=== PATIENT | female | born 1965 | race Caucasian/White ===

== ENCOUNTER 2020-07-27 10:45 | Outpatient (REF) | payer BC, SELFPAY | END 2020-07-27 10:46 | disposition home or self-care (01) | LOC: HO.HMGCLDS 10:45 | PROVIDERS: Visit Provider Internal Medicine | DX: Z20.828 Contact with and (suspected) exposure to other viral communicable diseases (principal) | CPT/HCPCS: C9803; U0003 ==

== ENCOUNTER 2021-10-01 19:34 | Inpatient (IN) | payer BC, SELFPAY ==
[2021-10-01] VITALS (13 sets, daily range): BP systolic 91–131; BP diastolic 53–81; PULSE 75–88; RESP 14–20; TEMP 36.5; O2SAT 93–99; BMI 20.4
--- NOTE | ~2021-10-01 | MR_ITS ---
EXAMINATION: MR BRAIN WITHOUT CONTRAST CLINICAL INFORMATION: Status post tPA. Question stroke. COMPARISON: CT dated 10/01/2021. TECHNIQUE: Multiplanar, multisequence imaging of the brain was performed without contrast. Limited study with motion artifacts. FINDINGS: No diffusion abnormalities are identified to suggest an acute or subacute infarct. The ventricles are normal in size. No mass effect or midline shift is seen. No brain parenchymal signal abnormality is noted. No extra-axial fluid collections are seen. The brainstem and cerebellum are normal. The gradient refocused acquisition is normal. The craniovertebral junction, marrow signal, and midline structures are normal. The major intracranial flow voids at the level of the [place] are preserved. The dural venous sinus flow voids are maintained. The mastoid air cells and paranasal sinuses are well aerated. MR/MR head/brain wo con IMPRESSION: No acute intracranial process on this limited noncontrast study with extensive motion artifacts.
--- NOTE | ~2021-10-01 | CT_ITS ---
EXAMINATION: CTA OF THE HEAD AND NECK CLINICAL INFORMATION: Difficulty speaking with weakness. COMPARISON: Noncontrast head CT on 10/01/2021. TECHNIQUE: Test bolus sequences followed by intravenous administration 70 mL of Omnipaque 350. Helical imaging was performed in the axial plane from the mediastinum to the skull vertex. Delayed postcontrast imaging of the head was also performed. The data was processed at the geospatial information technologist's workstation for generation of MIP sequences. Three-dimensional volume rendered reformatted images were also generated at an offline 3-D workstation. Stenoses are assessed in accordance with NASCET criteria unless otherwise indicated. This CT examination was performed using dose optimization techniques as appropriate, variously including the following: *Automated exposure control *Adjustment of mA and/or kV according to patient size (this includes techniques or standardized protocols for targeted exams where dose is matched to indication/reason for exam; i.e. extremities or head) *Use of iterative reconstruction technique DLP: 1471 mGy-cm. FINDINGS: CTA neck: The imaged aortic arch and origins of the great vessels are normal. The common carotid arteries are widely patent. The carotid bifurcations are normal. There are mild atherosclerotic wall calcifications along the posterior wall the proximal left ICA. The cervical internal carotid arteries are otherwise normal in caliber. The vertebral arteries opacify normally and are of normal caliber. The soft tissues of the neck are unremarkable. Severe lower cervical spondylosis evident with subluxations and a reversal of the normal cervical lordosis. Scoliotic curvature of the cervicothoracic spine noted. Multilevel facet arthropathy evident. Moderate emphysematous changes visible in the lungs with patchy scattered branching nodular densities in a subpleural distribution which may be due to an infectious/inflammatory small airways disease process. CTA head: The intradural vertebral arteries and basilar artery are normal. The posterior cerebral arteries are widely patent. The internal carotid arteries are of normal caliber. The CHERRIE and MCA vascular complexes bilaterally are normal. The venous sinuses opacify normally. CT/CT angio head neck stroke IMPRESSION: Normal CT angiogram of the head and neck. No acute intracranial process or abnormal enhancement. Moderate cervical spondylosis. Moderate emphysematous changes in the lungs with patchy nodular and branching densities in primarily a subpleural distribution which may be be due to an underlying infectious or inflammatory process of the small airways. A follow-up CT scan of the chest is recommended for more complete evaluation. Imaging findings reported to Dr. Oliva at 8:35 PM on 10/01/2021.
--- NOTE | ~2021-10-01 | CT_ITS ---
EXAMINATION: CT HEAD WITHOUT CONTRAST CLINICAL INFORMATION: Stroke protocol. COMPARISON: None. TECHNIQUE: Contiguous axial imaging was performed from the skull base to vertex without intravenous administration of contrast. This CT examination was performed using dose optimization techniques as appropriate, variously including the following: *Automated exposure control *Adjustment of mA and/or kV according to patient size (this includes techniques or standardized protocols for targeted exams where dose is matched to indication/reason for exam; i.e. extremities or head) *Use of iterative reconstruction technique DLP: 688 mGy-cm FINDINGS: There is no evidence of acute intracranial hemorrhage or edematous territorial infarction. There is no abnormal attenuation within the brain parenchyma. Fallon-white matter differentiation is preserved. The ventricles are normal in size and configuration. No evidence for obstructive hydrocephalus. No abnormal mass effect or midline shift. No extra-axial fluid collections. No acute soft tissue or osseous abnormalities. Mucous secretions in the right sphenoidal sinus. Other paranasal sinuses are clear. The mastoids and middle ear cavities are well aerated. CT/CT head for stroke IMPRESSION: No evidence of acute intracranial hemorrhage or edematous territorial infarction. This critical result was discussed with Dr Oliva at 10/01/2021 7:59 PM and it was ascertained that the content and urgency of the report was understood at the time of direct communication.
--- NOTE | ~2021-10-01 | XR_ITS ---
EXAMINATION: XR CHEST CLINICAL INFORMATION: Slurred speech. COMPARISON: No similar priors. TECHNIQUE: AP view of the chest was obtained. FINDINGS: Normal appearance of the cardiomediastinal silhouette. Overlying EKG wires. Mild interstitial prominence with an upper lobe predominance and no focal airspace opacities, pleural effusions or pneumothorax. No acute osseous abnormalities. Residual intravenous contrast in the bilateral collecting system from intravenous injection done earlier today. XR/XR chest 1V IMPRESSION: Interstitial prominence is nonspecific. Acutely it could be associated with bronchitis or atypical infections. Chronically, this could reflect underlying emphysematous changes and interstitial lung disease. Correlate clinically and ensure follow-up to document resolution or stability.
--- NOTE | 2021-10-01 19:40 | ECG_ITS ---
Test Reason : STROKE Blood Pressure : / mmHG Vent. Rate : 079 BPM Atrial Rate : 079 BPM P-R Int : 138 ms QRS Dur : 090 ms QT Int : 402 ms P-R-T Axes : 078 090 071 degrees QTc Int : 460 ms Normal sinus rhythm Rightward axis Borderline ECG No previous ECGs available Referred By: Cass Oliva Electronically Signed By:QUINTEN BREWSTER
[2021-10-01 19:42] LABS: Glucose, Whole Blood 86 mg/dL (60-115)
--- NOTE | 2021-10-01 19:46 | ED_ITS ---
HPI - Neuro Symptoms/Deficit General Chief Complaint: Dizziness Stated Complaint: STROKE ALERT,DIZZY,WEAK,LKWT 1810,NO THINNERS Time Seen by Provider: 10/01/21 19:39 History of Present Illness HPI Narrative: Patient is 56-year-old female was at daughter's house. Patient had a sudden o nset of change in speech dizziness generalized malaise that started at approximately 18:15. Patient was noted to be normal just prior to. No coughing or congestion or upper respiratory symptoms. Patient admits to drinking alcohol from 12-3 p.m. today. Patient claims she has 3 beers. no history diabetes, hypertension, high cholesterol, smoking, mi. patient from Daughter's house. No other recreational drug use. Not on any blood thinners. Related Data Allergies Allergy/AdvReac Type Severity Reaction Status Date / Time No Known Allergies Allergy Verified 10/01/21 19:40 Review of Systems Verdana 4l Review of Systems: Verdana 4d Positive change in Verdana 4d speech positive generalized weakness Verdana 4d Yes all other systems are reviewed and are negative [facility] Past Medical History Attestation statement: The following information was validated with the patient. Social History Social History Advance Directives: No Advance Directives Information Provided: Yes Physical Exam Verdana 4l Vital Signs: Verdana 4d Verdana 4d Vital Signs: Verdana 4d Verdana 4Bd Last Vital Signs Verdana 4d Glue Spreader New 4d Glue Spreader New 4d Temp 97.7 F 10/01/21 20:03 Glue Spreader New 4d Pulse 80 10/01/21 20:37 Glue Spreader New 4d Resp 14 10/01/21 20:37 BP 111/67 10/01/21 20:37 Pulse Ox 99 10/01/21 20:37 BMI result Body Mass Index 20.4 well-appearing not acute distress Appearance: Alert. Oriented X3. No acute distress. Eyes: Pupils equal, round and reactive to light. ENT: Pharynx normal. Neck: Normal inspection. Neck supple. No lymph nodes noted. No crepitus CVS: Normal heart rate and rhythm. Pulses normal. Normal S1 and S2 Respiratory: No respiratory distress. Breath sounds normal. No Wheezing. No rales Abdomen: Soft and nontender. No rigidity. No distention. good BS x4 Skin: Skin warm and dry. Normal skin color. Normal skin turgor. Extremities: No lower extremity edema. Neurovascular intact to all extremities. No Lacerations. No Rash Neuro: Oriented X 3. No motor deficit. No sensory deficit. Moving all extermities. speech slightly slurred. MDM - Neuro Symptoms/Deficit MDM Narrative Medical decision making narrative: Patient's blood pressure is 130/70. Not on blood thinners. Had a sudden on set of symptom at approximately 06:15. Admits to drinking alcohol but muscularly during the day from 07/29 15:00. Patient claims that the dizziness and change in speech happened suddenly at 18:15. She was at the daughter's house. Other people noticed her to be normal just prior. CT scan of the head was grossly negative for any acute evidence of bleeding. Patient's EKG showed a sinus pattern heart rate was 80 [place] QRS QTC within normal limits is no acute ST segment elevation noted. Patient is fair appearing. Repeat exam showed [id number] was grossly intact. Slight changes in his speech more slow than usual. [id number] was intact rapid alternating movement grossly intact. Case discussed with Neurology. Will give patient tPA given the known specific time of onset. Normal blood pressure no contraindications. Risk and benefit of tPA discussed with patient including bleed . Patient states understanding. TPA was given. On recheck patient's symptom approximately the same. Alcohol came back at this point it was approximately 80. Patient's case discussed with the general distillery worker. Will admit for further evalua Medical Records Attestation: I reviewed the patient's medical records. Lab Data Attestation: I reviewed the patient's lab results. Result diagrams: 10/01/21 20:09 10/01/21 20:09 Labs: Lab Results 10/01/21 10/01/21 10/01/21 Range/Units 19:37 19:37 20:09 WBC 8.4 (4.8-10.8) X10*3/uL RBC 4.02 L (4.20-5.50) X10*6/uL Hgb 12.7 (12.0-16.0) g/dl Hct 37.1 (37.0-47.0) % MCV 92.3 (80.0-98.0) fL MCH 31.6 (27.0-33.0) pg MCHC 34.2 (31.0-35.0) g/dl RDW 12.4 (11.0-16.0) % Plt Count 243 (160-400) X10*3/uL MPV 8.9 L (9.4-12.3) fL Immature Gran % (Auto) 0.1 (0.0-0.4) % Neut % (Auto) 61.2 (45-73) % Lymph % (Auto) 29.8 (20-40) % [place] % (Auto) 6.6 (2-11) % Eos % (Auto) 1.8 (0-4) % Baso % (Auto) 0.5 (0-2) % Lymph # (Auto) 2.5 (1.2-4.9) X10*3/uL [place] # (Auto) 0.6 (0.1-1.2) X10*3/uL Eos # (Auto) 0.2 (0.0-0.4) X10*3/uL Baso # (Auto) 0.0 (0.0-0.2) X10*3/uL Abs Immat Gran (auto) 0.01 (0.00-0.03) X10*3/uL Absolute Neuts (auto) 5.2 (2.0-8.3) x10*3/uL Absolute Nucleated RBC 0.000 (0.0-0.012) X10*3/uL Nucleated RBC % (auto) 0.0 (0.0-0.2) /100WBC PT (9.9-13.0) SEC Whole Blood PT 12.8 (11.1-13.5) sec INR (0.9-1.1) Whole Blood INR 1.1 (0.9-1.1) APTT (24.1-38.0) SEC POC Glucose 86 (60-115) mg/dL Troponin I High Sens (<3.5-17.0) ng/L Ethyl Alcohol mg/dL COVID-19 (EFRAIN) (Negative) COVID-19 Clin Com 10/01/21 10/01/21 10/01/21 Range/Units 20:09 20:09 20:09 WBC (4.8-10.8) X10*3/uL RBC (4.20-5.50) X10*6/uL Hgb (12.0-16.0) g/dl Hct (37.0-47.0) % MCV (80.0-98.0) fL MCH (27.0-33.0) pg MCHC (31.0-35.0) g/dl RDW (11.0-16.0) % Plt Count (160-400) X10*3/uL MPV (9.4-12.3) fL Immature Gran % (Auto) (0.0-0.4) % Neut % (Auto) (45-73) % Lymph % (Auto) (20-40) % [place] % (Auto) (2-11) % Eos % (Auto) (0-4) % Baso % (Auto) (0-2) % Lymph # (Auto) (1.2-4.9) X10*3/uL [place] # (Auto) (0.1-1.2) X10*3/uL Eos # (Auto) (0.0-0.4) X10*3/uL Baso # (Auto) (0.0-0.2) X10*3/uL Abs Immat Gran (auto) (0.00-0.03) X10*3/uL Absolute Neuts (auto) (2.0-8.3) x10*3/uL Absolute Nucleated RBC (0.0-0.012) X10*3/uL Nucleated RBC % (auto) (0.0-0.2) /100WBC PT 10.9 (9.9-13.0) SEC Whole Blood PT (11.1-13.5) sec INR 1.0 (0.9-1.1) Whole Blood INR (0.9-1.1) APTT 32.2 (24.1-38.0) SEC POC Glucose (60-115) mg/dL Troponin I High Sens < 3.5 (<3.5-17.0) ng/L Ethyl Alcohol 84 mg/dL COVID-19 (EFRAIN) (Negative) COVID-19 Clin Com 10/01/21 Range/Units 20:09 WBC (4.8-10.8) X10*3/uL RBC (4.20-5.50) X10*6/uL Hgb (12.0-16.0) g/dl Hct (37.0-47.0) % MCV (80.0-98.0) fL MCH (27.0-33.0) pg MCHC (31.0-35.0) g/dl RDW (11.0-16.0) % Plt Count (160-400) X10*3/uL MPV (9.4-12.3) fL Immature Gran % (Auto) (0.0-0.4) % Neut % (Auto) (45-73) % Lymph % (Auto) (20-40) % [place] % (Auto) (2-11) % Eos % (Auto) (0-4) % Baso % (Auto) (0-2) % Lymph # (Auto) (1.2-4.9) X10*3/uL [place] # (Auto) (0.1-1.2) X10*3/uL Eos # (Auto) (0.0-0.4) X10*3/uL Baso # (Auto) (0.0-0.2) X10*3/uL Abs Immat Gran (auto) (0.00-0.03) X10*3/uL Absolute Neuts (auto) (2.0-8.3) x10*3/uL Absolute Nucleated RBC (0.0-0.012) X10*3/uL Nucleated RBC % (auto) (0.0-0.2) /100WBC PT (9.9-13.0) SEC Whole Blood PT (11.1-13.5) sec INR (0.9-1.1) Whole Blood INR (0.9-1.1) APTT (24.1-38.0) SEC POC Glucose (60-115) mg/dL Troponin I High Sens (<3.5-17.0) ng/L Ethyl Alcohol mg/dL COVID-19 (EFRAIN) Negative (Negative) COVID-19 Clin Com See Note NIH Stroke Scale Internal: Initial- Upon Arrival Level of Consciousness: Alert Level of Consciousness Questions: Answers both questions correctly Level of Consciousness Commands: Performs both tasks correctly Best Gaze: Normal Visual: No visual loss Facial Palsy: Normal Motor Arm (Right): No drift Motor Arm (Left): No drift Motor Leg (Right): No drift Motor Leg (Left): No drift Limb Ataxia: Absent Sensory: Normal Best Language: Mild to moderate aphasia Dysarthia: Mild to moderate dysarthria Extinction and Inattention: No abnormality Score: 2 Critical Care Time Critical Care Time Critical Care Time: Yes Total Critical Care Time: 40 Attestation: I have personally provided 40 minutes of critical care time exclusive of time spent on separately billable procedures. Time includes review of lab data, radiology results, discussion with consultants, and monitoring for potential decompensation. Interventions were performed as documented above Discharge Plan Discharge Clinical Impression: Alcohol intoxication, Acute CVA (cerebrovascular accident) Patient Disposition: Admitted As Inpatient
[2021-10-01 19:48] LABS: Prothrombin Time Whole Bld POC 12.8 sec (11.1-13.5); ~PT, ~INR - Anti Coag Clinic 1.1 (0.9-1.1)
[2021-10-01 20:14] LABS: MANUAL DIFF FLAG NO
[2021-10-01 20:15] LABS: Basophils Percent Auto 0.5 % (0-2); Eosinophils Absolute Auto 0.2 X10*3/uL (0.0-0.4); Eosinophils Percent Auto 1.8 % (0-4); Hematocrit 37.1 % (37.0-47.0); Hemoglobin 12.7 g/dl (12.0-16.0); Imm Gran Abs Auto 0.01 X10*3/uL (0.00-0.03); Imm Gran Pct Auto 0.1 % (0.0-0.4); Lymphocytes Absolute Auto 2.5 X10*3/uL (1.2-4.9); Lymphocytes Percent Auto 29.8 % (20-40); Mean Corpuscular HGB Conc 34.2 g/dl (31.0-35.0); Mean Corpuscular Hemoglobin 31.6 pg (27.0-33.0); Mean Corpuscular Volume 92.3 fL (80.0-98.0); Mean Platelet Volume 8.9 fL (9.4-12.3); Monocytes Absolute Auto 0.6 X10*3/uL (0.1-1.2); Monocytes Percent Auto 6.6 % (2-11); Neutrophils Absolute Auto 5.2 x10*3/uL (2.0-8.3); Neutrophils Percent Auto 61.2 % (45-73); Platelet Count 243 X10*3/uL (160-400); Red Blood Count 4.02 X10*6/uL (4.20-5.50); Red Cell Distribution Width 12.4 % (11.0-16.0); White Blood Count 8.4 X10*3/uL (4.8-10.8)
[2021-10-01 20:22] LABS: Prothrombin Time 10.9 SEC (9.9-13.0)
--- NOTE | 2021-10-01 20:23 | PC.NURSE ---
TPA dose confirmed by this RN and verfied by True RN at bedside. Pt 54 kg. Total dose 48.2 mg, bolus 4.8 mg given, remainder 43.4 mg to run over 1 hr. Vitals as charted
[2021-10-01 20:24] LABS: Partial Thromboplastin Time 32.2 SEC (24.1-38.0)
[2021-10-01 20:27] LABS: Stroke Lab Use COMPLETE
[2021-10-01 20:28] LABS: Ethanol 84 mg/dL
--- NOTE | 2021-10-01 20:30 | PC.NURSE ---
Neuro status unchanged from previous- awake and alert, clear speech, answering questions appropriately, following commands, moving all extremities. No facial droop, arm drift, or focal deficits. Pt continues to endorse severe dizziness. Denies all other complaints. TPA infusing, vitals as charted, this RN to remain at bedside for duration of infusion
[2021-10-01 20:31] LABS: COVID-19 Test Negative (Negative); IDNOW Serial# 55D5AD1C
[2021-10-01 20:35] LABS: Stroke Lab Use COMPLETE
[2021-10-01 20:36] LABS: Troponin-I High Sensitivity < 3.5 ng/L (<3.5-17.0)
--- NOTE | 2021-10-01 21:13 | PHA.MEDREC ---
Pharmacy Consult ? Medication Reconciliation Pharmacy has completed the medication reconciliation. Patient is sleeping after TPA. Medications reconciled with fill history
[2021-10-01] MEDS: 0.9 % Sodium Chloride 1,000 ML 100 ML IVCONT (21:26)
--- NOTE | 2021-10-01 21:27 | PC.NURSE ---
TPA infusion complete at this time. Vitals as charted. Neuro status unchanged. Pending admission to ICU. Pt remains attached to monitoring coordinator and pulse ox, BP to cycle Q 15 x 1 hr
--- NOTE | 2021-10-01 21:29 | P.HPCC_ITS ---
History of Present Illness Date of Service: 10/01/21 <Mariela Rosales PA-C - Last Filed: 10/02/21 00:55> Attending physician on admission: Henrry Little <Mariela Rosales PA-C - Last Filed: 10/02/21 00:55> Chief Complaint: tPA given, CVA <Mariela Rosales PA-C - Last Filed: 10/02/21 00:55> Patient is a 56-year-old female past medical history of COPD and HTN who was brought in by ambulance on a stroke alert. The pt states she was at her home today, cleaning all day with her and daughter, they were drinking alcohol, the patient claims she only had 3 beers, the confirmed this. The and the daughter states that at 6:15pm, she had a sudden change in her speech, they described it as a slowing of her speech and she became clumsy so they called 911. Forty-five mins after the last known well time, in the emergency department, a decision was made to give the patient tPA. During my exam, the patient's only complaint was that she feels like she is talking slower than normal and she felt dizzy and wanted to keep her eyes closed but when I asked her open them, she was okay. My exam revealed no deficits except pupils were sluggish, could be due to etoh. Patient denied any chest pain, shortness of breath, abdominal pain or headache. Patient stated she drank 2 beers this afternoon and did not use any street drugs today. Patient is also asking for an albuterol inhaler as she uses hers twice daily and is due. Patient's head CT and head and neck CTA were unremarkable. Patient's labs were remarkable for ethyl alcohol 84, chemistry pending. Case discussed with Dr. Little, patient will be transferred to the ICU for monitoring. <Mariela Rosales PA-C - Last Filed: 10/02/21 00:55> Review of Systems Verdana 4l Review of Systems: Yes all other systems are reviewed and Verdana 4d are negative Verdana 4Il <Mariela Rosales PA-C - Last Filed: 10/02/21 00:55> Verdana 4d Verdana 4l Neurologic: Verdana 4d Reports Abnormal speech present and Denies Sensory deficit (Neuro) Verdana 4Il <Mariela Rosales PA-C - Last Filed: 10/02/21 00:55> Verdana 4d PMFSH Social History Social History: Social History Household Members: Significant Other Household Members Other:: DAUGHTER Housing: Condominium Do you presently have visiting nurse or other home services: No Alcohol intake: current Patient Tobacco Use Status: Current everyday Tobacco user Tobacco use type: Cigarette Cigarette Packs Per Day: 1 Cigarettes Per Day: 10 Years Smoked: 40 Smoked in Last 30 Days: Yes Patient Interested in Nicotine Replacement: Yes Patient Given Instructions on How to Stop Smoking: Yes Date Education Initiated: 10/02/21 Second Hand Smoke Exposure: No Use of substances other than those prescribed or required for medical reasons: No Currently Displaying Signs/Symptoms of Drug Intoxication Withdrawal: No Any prior treatment program specific to substance use: No Have you been hit, kicked, punched, or otherwise hurt by someone within the past year? If so, by whom?: No Do you feel safe in your current relationship?: No Is there a partner from a previous relationship who is making you feel unsafe now?: No Are you made to feel afraid or neglected: No Advance Directives: No Advance Directives Information Provided: Yes Do you have thoughts of harming others: None Recently lost weight without trying: No Nutrition Risks: No Nutritional Risk Patient : No : No Poor oral hygiene: No <Mariela Rosales PA-C - Last Filed: 10/02/21 00:55> Meds Allergies/Adverse reactions: Allergies Allergy/AdvReac Type Severity Reaction Status Date / Time No Known Allergies Allergy Verified 10/01/21 21:07 <Mariela Rosales PA-C - Last Filed: 10/02/21 00:55> Active Medications: Current Medications Sodium Chloride (Ns) 1,000 mls @ 100 mls/hr IVCONT .Q10H FREDA Last Admin: 10/01/21 21:26 Dose: 100 mls/hr Documented by: Pharmacy Consult (Consult Rx Perform Med Rec) 1 each MISCELLANE ONCE PRN PRN Reason: Consult order <KARAN Leroy Last Filed: 10/02/21 00:55> Home medications: Home Medications Medication Instructions Recorded Confirmed Last Taken Type budesonide-formot 2 puff 10/01/21 10/01/21 Unknown History burt HFA 160 INHALATION BID mcg-4.5 mcg/actuation aerosol inhaler (Symbicort) citalopram 40 mg 1 tab PO DAILY 10/01/21 10/01/21 Unknown History tablet losartan 50 mg 2 tab PO DAILY 10/01/21 10/01/21 Unknown History tablet tiotropium 1 cap INHALATION 10/01/21 10/01/21 Unknown History bromide 18 mcg DAILY capsule with inhalation device (Spiriva with HandiHaler) <Mariela Rosales PA-C - Last Filed: 10/02/21 00:55> Physical Exam Verdana 4l Vital Signs: Verdana 4d Verdana 4d Vital Signs: Verdana 4d Verdana 4Bd Last Vital Signs Verdana 4d Replanting Machine Crew New 4d Replanting Machine Crew New 4d Temp 97.7 F 10/01/21 20:03 Replanting Machine Crew New 4d Pulse 81 10/01/21 21:27 Replanting Machine Crew New 4d Resp 15 10/01/21 21:27 BP 102/64 10/01/21 21:27 Pulse Ox 94 10/01/21 21:27 BMI result Body Mass Index 20.4 <Mariela Rosales PA-C - Last Filed: 10/02/21 00:55> Const: General: cooperative, healthy appearing, comfortable, no acute distress, alert, awake and Physically active <Mariela Rosales PA-C - Last Filed: 10/02/21 00:55> Nutritional Appearance: average body habitus <Mariela Rosales PA-C - Last Filed: 10/02/21 00:55> Orientation/consciousness: patient oriented x3 <KARAN Leroy Last Filed: 10/02/21 00:55> HENMT: Head: Yes normal to inspection, Yes No palpable skull fracture present, Yes normocephalic and Yes atraumatic <Mariela Rosales PA-C - Last Filed: 10/02/21 00:55> General nose exam: Normal external nose present <KARAN Leroy Last Filed: 10/02/21 00:55> Face and sinus: Yes normal facial exam and Yes face symmetric <Mariela Rosales PA-C - Last Filed: 10/02/21 00:55> Mouth: Normal oral and palatal mucosa present <Mariela Rosales PA-C - Last Filed: 10/02/21 00:55> Eyes: General: appearance normal, both eyes and all related structures <Mariela Rosales PA-C - Last Filed: 10/02/21 00:55> Pupils: Dilated pupils (sluggish) bilaterally <Mariela Rosales PA-C - Last Filed: 10/02/21 00:55> EOM: EOMs intact bilaterally <Mariela Rosales PA-C - Last Filed: 10/02/21 00:55> Neck: Neck: Yes normal visual inspection, Yes full ROM, Yes trachea midline and Yes supple <Mariela Rosales PA-C - Last Filed: 10/02/21 00:55> Resp: Effort & Inspection: normal respiratory effort <Mariela Rosales PA-C - Last Filed: 10/02/21 00:55> Auscultation: wheezes and diminished lung sounds diffuse <Mariela Rosales PA-C - Last Filed: 10/02/21 00:55> Cardio: Rate: regular rate <Mariela Rosales PA-C - Last Filed: 10/02/21 00:55> Rhythm: regular rhythm <Mariela Rosales PA-C - Last Filed: 10/02/21 00:55> Heart sounds: normal S1 and S2 <Mariela Rosales PA-C - Last Filed: 10/02/21 00:55> GI: Inspection: Yes normal to inspection <Mariela Rosales PA-C - Last Filed: 10/02/21 00:55> Palpation (GI): Soft to palpation and nontender <Mariela Rosales PA-C - Last Filed: 10/02/21 00:55> Neuro: General: patient oriented x3 and Unable to assess gait <Mariela Rosales PA-C - Last Filed: 10/02/21 00:55> Cranial nerves: Yes CN's II-XII intact bilaterally <Mariela Rosales PA-C - Last Filed: 10/02/21 00:55> Cognition (Neuro): normal cognition <Mariela Rosales PA-C - Last Filed: 10/02/21 00:55> Speech: Abnormal speech present slurred (/slowed) <Mariela Rosales PA-C - Last Filed: 10/02/21 00:55> Gait exam (Neuro): Unable to assess gait <Mariela Rosales PA-C - Last Filed: 10/02/21 00:55> Motor exam (neuro): 5/5 motor strength present throughout and Pronator motor function not present <Mariela Rosales PA-C - Last Filed: 10/02/21 00:55> Sensory Exam: No Sensory deficit (Neuro) <Mariela Rosales PA-C - Last Fi led: 10/02/21 00:55> Pupils: Sluggish: bilateral <Mariela Rosales PA-C - Last Filed: 10/02/21 00:55> Extrem: General: Yes normal to inspection, Yes full ROM and Yes no pedal edema <Mariela Rosales PA-C - Last Filed: 10/02/21 00:55> Results Labs CBC and Chem 7: : 10/02/21 05:24 10/02/21 05:24 <Mariela Rosales PA-C - Last Filed: 10/02/21 00:55> Labs: Laboratory Results - last 24 hr 10/01/21 10/01/21 10/01/21 19:37 19:37 20:09 MCV 92.3 MCH 31.6 MCHC 34.2 RDW 12.4 Plt Count 243 MPV 8.9 L Immature Gran % (Auto) 0.1 Neut % (Auto) 61.2 Lymph % (Auto) 29.8 [place] % (Auto) 6.6 Eos % (Auto) 1.8 Baso % (Auto) 0.5 Lymph # (Auto) 2.5 [place] # (Auto) 0.6 Eos # (Auto) 0.2 Baso # (Auto) 0.0 Abs Immat Gran (auto) 0.01 Absolute Neuts (auto) 5.2 Absolute Nucleated RBC 0.000 Nucleated RBC % (auto) 0.0 PT Whole Blood PT 12.8 INR Whole Blood INR 1.1 APTT POC Glucose 86 Ethyl Alcohol COVID-19 (EFRAIN) COVID-19 Clin Com 10/01/21 10/01/21 10/01/21 20:09 20:09 20:09 MCV MCH MCHC RDW Plt Count MPV Immature Gran % (Auto) Neut % (Auto) Lymph % (Auto) [place] % (Auto) Eos % (Auto) Baso % (Auto) Lymph # (Auto) [place] # (Auto) Eos # (Auto) Baso # (Auto) Abs Immat Gran (auto) Absolute Neuts (auto) Absolute Nucleated RBC Nucleated RBC % (auto) PT 10.9 Whole Blood PT INR 1.0 Whole Blood INR APTT 32.2 POC Glucose Ethyl Alcohol 84 COVID-19 (EFRAIN) Negative COVID-19 Clin Com See Note <Mariela Rosales PA-C - Last Filed: 10/02/21 00:55> Imaging Radiologist's Impressions: Impressions Head CT 10/01/21 19:44 IMPRESSION: No evidence of acute intracranial hemorrhage or edematous territorial infarction. This critical result was discussed with Dr Oliva at 10/01/2021 7:59 PM and it was ascertained that the content and urgency of the report was understood at the time of direct communication. Head/Neck CTA 10/01/21 19:54 IMPRESSION: Normal CT angiogram of the head and neck. No acute intracranial process or abnormal enhancement. Moderate cervical spondylosis. Moderate emphysematous changes in the lungs with patchy nodular and branching densities in primarily a subpleural distribution which may be be due to an underlying infectious or inflammatory process of the small airways. A follow-up CT scan of the chest is recommended for more complete evaluation. Imaging findings reported to Dr. Oliva at 8:35 PM on 10/01/2021. Chest X-Ray 10/01/21 20:48 IMPRESSION: Interstitial prominence is nonspecific. Acutely it could be associated with bronchitis or atypical infections. Chronically, this could reflect underlying emphysematous changes and interstitial lung disease. Correlate clinically and ensure follow-up to document resolution or stability. <KARAN Leroy Last Filed: 10/02/21 00:55> Assessment and Plan (1) Alcohol intoxication: Status: Acute <Mariela Rosales PA-C - Last Filed: 10/02/21 00:55> (2) Acute CVA (cerebrovascular accident): Status: Acute <Mariela Rosales PA-C - Last Filed: 10/02/21 00:55> (3) COPD (chronic obstructive pulmonary disease): Status: Acute <Mariela Rosales PA-C - Last Filed: 10/02/21 00:55> (4) HTN (hypertension): Status: Acute <Mariela Rosales PA-C - Last Filed: 10/02/21 00:55> Plan patient will be brought to the ICU for monitoring s/p tPA; echo and MRI both ordered for tomorrow. Neuro consult appreciated. <Mariela Rosales PA-C - Last Filed: 10/02/21 00:55> Critical Care Time Critical Care Time (minutes): 60 <KARAN Leroy Last Filed: 10/02/21 00:55>
[2021-10-01 22:05] LABS: Alanine Aminotransferase 11 U/L (0-31); Albumin Level 3.8 g/dL (3.5-5.0); Alkaline Phosphatase 83 U/L (39-117); Anion Gap 14 (12-20); Aspartate Amino Transferase 16 U/L (5-31); Bilirubin Direct < 0.2 mg/dL (0.0-0.5); Bilirubin Total 0.3 mg/dL (0.0-1.0); Blood Urea Nitrogen 15 mg/dL (9-16); Calcium 8.4 mg/dL (8.4-10.2); Carbon Dioxide 26 mmol/L (22-29); Chloride 103 mmol/L (96-108); Cholesterol 179 mg/dL; Creatinine Clr Calc Pharmacy 73.6; Estimated Glomerular Filt Rate > 60; Glucose Random 110 mg/dL (60-115); HDL Cholesterol 79 mg/dL; LDL Cholesterol Calculated 65 mg/dl; Sodium 139 mmol/L (135-145); Total Protein 6.3 g/dL (6.5-8.0); Triglycerides 179 mg/dL
[2021-10-01] MEDS: Albuterol Sulfate 90 MCG 8 GM INHALER 2 PUFF INHALE (23:46)
--- NOTE | 2021-10-01 23:46 | PC.NURSE ---
Report called to [facility]. Pt transferred in stable condition w/ all belongings, attached to portable monitor, vitals as charted. Neuro status unchanged from previous
[2021-10-02] VITALS (18 sets, daily range): BP systolic 96–170; BP diastolic 59–93; PULSE 60–78; RESP 12–18; TEMP 36.6–37.3; O2SAT 12–98; BMI 20.4
[2021-10-02] MEDS: 0.9 % Sodium Chloride 1,000 ML 100 ML IVCONT ×2 (00:36→12:52)
[2021-10-02] MEDS: 0.9 % Sodium Chloride 1,000 ML 999 ML IV (00:37)
--- NOTE | 2021-10-02 05:50 | PC.NURSE ---
Pt to ICU at 2345 in no acute distress, alert and oriented X3. Only complaint was slight dizziness, which she stated was getting better and slight slurred speech but was able to understand her. She was also very weak and as she described it as foggy. She just wanted to sleep. Pupils equal and reactive to light. Moving all extremites equally. Pt denies headache. Slept off and on in naps. No bleeding complications S/P thrombolytic. BP soft on arrival to ICU. SBP low 100's and she received 1 liter of NS over 1 hout. NS infusing at 100 ml/hr. Used bedpan to void without difficulty. Swallow eval done and pt passed. Taking ice chips and sips of water PO.
[2021-10-02 05:55] LABS: MANUAL DIFF FLAG NO
[2021-10-02 06:10] LABS: Basophils Percent Auto 0.4 % (0-2); Eosinophils Absolute Auto 0.1 X10*3/uL (0.0-0.4); Eosinophils Percent Auto 1.3 % (0-4); Hematocrit 36.4 % (37.0-47.0); Hemoglobin 12.2 g/dl (12.0-16.0); Imm Gran Abs Auto 0.03 X10*3/uL (0.00-0.03); Imm Gran Pct Auto 0.4 % (0.0-0.4); Lymphocytes Absolute Auto 1.9 X10*3/uL (1.2-4.9); Mean Corpuscular HGB Conc 33.5 g/dl (31.0-35.0); Mean Corpuscular Hemoglobin 31.4 pg (27.0-33.0); Mean Corpuscular Volume 93.8 fL (80.0-98.0); Mean Platelet Volume 9.3 fL (9.4-12.3); Monocytes Absolute Auto 0.6 X10*3/uL (0.1-1.2); Monocytes Percent Auto 8.6 % (2-11); Neutrophils Absolute Auto 4.2 x10*3/uL (2.0-8.3); Neutrophils Percent Auto 61.3 % (45-73); Platelet Count 230 X10*3/uL (160-400); Red Blood Count 3.88 X10*6/uL (4.20-5.50); Red Cell Distribution Width 12.7 % (11.0-16.0); White Blood Count 6.8 X10*3/uL (4.8-10.8)
[2021-10-02 06:29] LABS: Anion Gap 12 (12-20); Blood Urea Nitrogen 12 mg/dL (9-16); Calcium 8.1 mg/dL (8.4-10.2); Carbon Dioxide 22 mmol/L (22-29); Chloride 110 mmol/L (96-108); Creatinine Clr Calc Pharmacy 79.1; Estimated Glomerular Filt Rate > 60; Glucose Random 85 mg/dL (60-115); Magnesium 2.3 mg/dL (1.6-2.6); Phosphorus 4.2 mg/dL (2.7-4.5); Potassium 4.4 mmol/L (3.3-5.1); Sodium 140 mmol/L (135-145)
[2021-10-02] MEDS: Albuterol Sulfate 90 MCG 8 GM INHALER 2 PUFF INHALE ×2 (08:36→19:37)
[2021-10-02 08:55] LABS: Amphetamine Screen Urine Not Detected (Not Detect); Barbiturates, Urine Not Detected (Not Detect); Benzodiazepines Screen Urine Not Detected (Not Detect); Cannabinoid Screen Urine POSITIVE (Not Detect); Cocaine Screen Urine Not Detected (Not Detect); Fentanyl, urine Not Detected (Not Detect); Opiate Screen Urine Not Detected (Not Detect); Phencyclidine Screen Urine Not Detected (Not Detect)
--- NOTE | 2021-10-02 10:23 | P.PNCC_ITS ---
Subjective Subjective Date of Service: 10/02/21 Interval History: Fifty-five 56-year-old female hypertensive ongoing smoker with history of COPD presents with sudden onset of dysarthria over which she had no control but simultaneously had severe vertiginous dizziness had to close her eye Rachna overcome some of the brunt of that feeling with associated nausea in over the hours since the tPA was given she had gradual resolution of the symptoms now feels that she is pretty much restored to normal Initial CT scan was negative She did present with a modest alcohol level of 84 mg % following a couple of beers that she drank which is not out of the ordinary Bedside echo shows globally normal anatomy with normal systolic wall motion and no wall motion abnormality segmentally, no primary valve or pericardial disease I did see a trickle of flow at the fossa ovalis implying that there may be some patency to the foramen and therefore I would recommend a complete echocardiogram with bubble study and in a because that could be a source of paradoxical emboli to the left side of the circulation MRI is pending this afternoon Critical Care Time (minutes): 45 Physical Exam Verdana 4l Vital Signs: Verdana 4d Verdana 4d Vital Signs: Verdana 4d Verdana 4Bd Last Vital Signs Verdana 4d Staff Nurse Midwife New 4d Staff Nurse Midwife New 4d Temp 97.9 F 10/02/21 06:00 Staff Nurse Midwife New 4d Pulse 61 10/02/21 10:00 Staff Nurse Midwife New 4d Resp 12 10/02/21 10:00 BP 144/88 H 10/02/21 10:00 Pulse Ox 98 10/02/21 10:00 BMI result Body Mass Index 20.4 Awake alert and neurologically intact and nonfocal Diminished bilateral breath sounds but no event tissue sounds No neck vein distension and good bilateral carotid upstrokes and normal LV and RV function by bedside echo Objective Data Labs CBC & Chem 7: 10/02/21 05:24 10/02/21 05:24 Labs: Laboratory Results - last 24 hr 10/01/21 10/01/21 10/01/21 19:37 19:37 20:09 WBC 8.4 RBC 4.02 L Hgb 12.7 Hct 37.1 MCV 92.3 MCH 31.6 MCHC 34.2 RDW 12.4 Plt Count 243 MPV 8.9 L Immature Gran % (Auto) 0.1 Neut % (Auto) 61.2 Lymph % (Auto) 29.8 Mcculloch % (Auto) 6.6 Eos % (Auto) 1.8 Baso % (Auto) 0.5 Lymph # (Auto) 2.5 Mcculloch # (Auto) 0.6 Eos # (Auto) 0.2 Baso # (Auto) 0.0 Abs Immat Gran (auto) 0.01 Absolute Neuts (auto) 5.2 Absolute Nucleated RBC 0.000 Nucleated RBC % (auto) 0.0 PT Whole Blood PT 12.8 INR Whole Blood INR 1.1 APTT Sodium Potassium Chloride Carbon Dioxide Anion Gap BUN Creatinine Estim Creat Clear Calc Estimated GFR POC Glucose 86 Random Glucose Calcium Phosphorus Magnesium Total Bilirubin Direct Bilirubin AST ALT Alkaline Phosphatase Total Creatine Kinase Troponin I High Sens Total Protein Albumin Triglycerides Cholesterol LDL Cholesterol, Calc HDL Cholesterol Urine Opiates Screen Urine Fentanyl Screen Ur Barbiturates Screen Ur Phencyclidine Scrn Ur Amphetamines Screen U Benzodiazepines Scrn Urine Cocaine Screen U Marijuana (THC) Screen Ethyl Alcohol COVID-19 (EFRAIN) COVID-Rubysophic 10/01/21 10/01/21 10/01/21 20:09 20:09 20:09 WBC RBC Hgb Hct MCV MCH MCHC RDW Plt Count MPV Immature Gran % (Auto) Neut % (Auto) Lymph % (Auto) Mcculloch % (Auto) Eos % (Auto) Baso % (Auto) Lymph # (Auto) Mcculloch # (Auto) Eos # (Auto) Baso # (Auto) Abs Immat Gran (auto) Absolute Neuts (auto) Absolute Nucleated RBC Nucleated RBC % (auto) PT 10.9 Whole Blood PT INR 1.0 Whole Blood INR APTT 32.2 Sodium Potassium Chloride Carbon Dioxide Anion Gap BUN Creatinine Estim Creat Clear Calc Estimated GFR POC Glucose Random Glucose Calcium Phosphorus Magnesium Total Bilirubin Direct Bilirubin AST ALT Alkaline Phosphatase Total Creatine Kinase Troponin I High Sens < 3.5 Total Protein Albumin Triglycerides Cholesterol LDL Cholesterol, Calc HDL Cholesterol Urine Opiates Screen Urine Fentanyl Screen Ur Barbiturates Screen Ur Phencyclidine Scrn Ur Amphetamines Screen U Benzodiazepines Scrn Urine Cocaine Screen U Marijuana (THC) Screen Ethyl Alcohol 84 COVID-19 (EFRAIN) COVID-Rubysophic 10/01/21 10/01/21 10/02/21 20:09 21:18 05:24 WBC 6.8 RBC 3.88 L Hgb 12.2 Hct 36.4 L MCV 93.8 MCH 31.4 MCHC 33.5 RDW 12.7 Plt Count 230 MPV 9.3 L Immature Gran % (Auto) 0.4 Neut % (Auto) 61.3 Lymph % (Auto) 28.0 Mcculloch % (Auto) 8.6 Eos % (Auto) 1.3 Baso % (Auto) 0.4 Lymph # (Auto) 1.9 Mcculloch # (Auto) 0.6 Eos # (Auto) 0.1 Baso # (Auto) 0.0 Abs Immat Gran (auto) 0.03 Absolute Neuts (auto) 4.2 Absolute Nucleated RBC 0.000 Nucleated RBC % (auto) 0.0 PT Whole Blood PT INR Whole Blood INR APTT Sodium 139 Potassium 4.0 Chloride 103 Carbon Dioxide 26 Anion Gap 14 BUN 15 Creatinine 0.71 Estim Creat Clear Calc 73.6 Estimated GFR > 60 POC Glucose Random Glucose 110 Calcium 8.4 Phosphorus Magnesium Total Bilirubin 0.3 Direct Bilirubin < 0.2 AST 16 ALT 11 Alkaline Phosphatase 83 Total Creatine Kinase 143 H Troponin I High Sens Total Protein 6.3 L Albumin 3.8 Triglycerides 179 Cholesterol 179 LDL Cholesterol, Calc 65 HDL Cholesterol 79 Urine Opiates Screen Urine Fentanyl Screen Ur Barbiturates Screen Ur Phencyclidine Scrn Ur Amphetamines Screen U Benzodiazepines Scrn Urine Cocaine Screen U Marijuana (THC) Screen Ethyl Alcohol COVID-19 (EFRAIN) Negative COVID-19 Clin Com See Note 10/02/21 10/02/21 05:24 08:31 WBC RBC Hgb Hct MCV MCH MCHC RDW Plt Count MPV Immature Gran % (Auto) Neut % (Auto) Lymph % (Auto) Mcculloch % (Auto) Eos % (Auto) Baso % (Auto) Lymph # (Auto) Mcculloch # (Auto) Eos # (Auto) Baso # (Auto) Abs Immat Gran (auto) Absolute Neuts (auto) Absolute Nucleated RBC Nucleated RBC % (auto) PT Whole Blood PT INR Whole Blood INR APTT Sodium 140 Potassium 4.4 Chloride 110 H Carbon Dioxide 22 Anion Gap 12 BUN 12 Creatinine 0.66 Estim Creat Clear Calc 79.1 Estimated GFR > 60 POC Glucose Random Glucose 85 Calcium 8.1 L Phosphorus 4.2 Magnesium 2.3 Total Bilirubin Direct Bilirubin AST ALT Alkaline Phosphatase Total Creatine Kinase Troponin I High Sens Total Protein Albumin Triglycerides Cholesterol LDL Cholesterol, Calc HDL Cholesterol Urine Opiates Screen Not Detected Urine Fentanyl Screen Not Detected Ur Barbiturates Screen Not Detected Ur Phencyclidine Scrn Not Detected Ur Amphetamines Screen Not Detected U Benzodiazepines Scrn Not Detected Urine Cocaine Screen Not Detected U Marijuana (THC) Screen POSITIVE H Ethyl Alcohol COVID-19 (EFRAIN) COVID-19 Clin Com Progress Note: A&P Assessment and plan (1) HTN (hypertension): Status: Acute (2) COPD (chronic obstructive pulmonary disease): Status: Acute (3) Alcohol intoxication: Status: Acute (4) Acute CVA (cerebrovascular accident): Status: Acute Plan So at this point we await MRI but the clinical symptoms imply posterior circulation or vertebrobasilar system involvement it might also be flores to do both MRI and MRA with with gadolinium to further delineate this issue The only potential cardiovascular source is is this question of a patent foramen ovale and a full echo with bubble study should be done to rule that out Quality Stroke Does the patient have a stroke diagnosis?: Yes Reason for No Anti-thrombotic by Day Two: N/A - Med Ordered VTE Prior VTE?: No VTE Risk Level:: Medical - low VTE Device Contraindication: N/A - Device Ordered VTE Drug Contraindication: Treatment Not Indicated
--- NOTE | 2021-10-02 11:00 | MHC.STROKE ---
EMS PRE-NOTIFICATION STROKE ALERT CALLED IN 10/01/[address] AT 1926[address]EN BY DR HEWITT, ONSET OF SLURRED SPEECH (DYSARTHRIA/APHASIA) AT 1815, NIHSS UPON ARRIVAL = 2, STROKE PROTOCOL ACTIVATED, DIRECT TO CT ON EMS STRETCHER, NO BLEED, FOLLOWED BY CTA H/N, NO LVO. DR SCHOFIELD NOTIFIED, TPA (ALTEPLASE) BOLUS GIVEN AT 2021 FOLLOWED BY 1 HOUR INFUSION, TOTAL DOSE 48MG. [id number] = 48 MINUTES. OVER THE DTN 30 AND 45 MINUTE WINDOW DUE TO CARE TEAM DETERMINING ELIGIBILITY, LOW NIHSS, ETOH USE. STROKE RISK FACTORS INCLUDE HTN, HLD, SMOKING, ?OR, COPD. MARJUANA/ETOH USE. SHE PASSED NURSING SWALLOW PRIOR TO ANY PO. TRANSFERRED TO ICU. STROKE EDUCATION INITIATED, MRI PENDING, ECHO ORDERED, OT ORDERED, CONSIDER PT EVAL. LIPID PANEL DONE LDL 65. HDL 79. ALL STROKE MEASURES MET. IVF GIVEN DURING THE NIGHT FOR A DROP IN SYS BP. I WILL CONTINUE TO FOLLOW. CONSIDER CARE TEAM CONSULT FOR ETOH.
[2021-10-02] MEDS: LORazepam 2 MG/ML VIAL 1 MG IVPUSH (11:28)
--- NOTE | 2021-10-02 11:43 | P.EN_ITS ---
Event Note Date of Service: 10/02/21 Event Note: patient downgraded from ICU to IMC this morning. briefly 56-year-old female with past medical history of COPD, hypertension history of tobacco use around half pack per day, came to [facility] due to speech impairment, as per patient she fell she has marbles in her mouth words were not coming out she felt dizzy weak, she denies any shortness of breath chest pain no nausea no vomiting or headache, in the emergency room CTA head and neck was unremarkable her alcohol level was 84 patient received tPA and admitted to ICU this morning patient feels tired concerned about her daughter home she takes care of was 25 years old and handicap she is requesting for other nicotine patch, according to her she drinks 2-3 beers almost every night she denies any withdrawal symptoms prior history of delirium tremens or seizures examination awake alert neuro examination nonfocal lungs clear to auscultation heart regular extremities no edema assessment and plan dysarthria status post tPA, follow MRI echocardiogram with bubble study due to concern for PFO on limited echo, PT OT eval follow lipid profile, case discussed with Dr. Patino he will inform about further recommendations after reviewing MRI tobacco use disorder will place a nicotine patch history of alcohol dependence no evidence of alcohol withdrawal will place on CIWA protocol
--- NOTE | 2021-10-02 11:49 | P.CNNE_ITS ---
History of Present Illness Data of Consult Service Date: 10/02/21 Primary Care Provider: Unknown Physician HPI Reason for consult: Stroke 56 years old woman who was in usual state of health yesterday when suddenly her speech pattern changed. She said that she could say everything but it was like there were marbles and her mouth. She also felt generally weak and unsteady but not confused. There was no headache or pain or double vision. There was no focal weakness. She came to emergency room and clinically speaking she was diagnosed with acute ischemic infarct in posterior circulation and was treated with intravenous tPA. Now she was feeling much better and speech pattern has improved. There was no new symptom. Review of Systems Verdana 4l Review of Systems: Verdana 4d No recent symptoms are cold Verdana 4d or flu-like illness Verdana 4d [facility] Social History Social History Household Members: Significant Other Household Members Other:: DAUGHTER Housing: Condominium Do you presently have visiting nurse or other home services: No Alcohol intake: current Patient Tobacco Use Status: Current everyday Tobacco user Tobacco use type: Cigarette Cigarette Packs Per Day: 1 Cigarettes Per Day: 10 Years Smoked: 40 Smoked in Last 30 Days: Yes Patient Interested in Nicotine Replacement: Yes Patient Given Instructions on How to Stop Smoking: Yes Date Education Initiated: 10/02/21 Second Hand Smoke Exposure: No Use of substances other than those prescribed or required for medical reasons: No Currently Displaying Signs/Symptoms of Drug Intoxication Withdrawal: No Any prior treatment program specific to substance use: No Have you been hit, kicked, punched, or otherwise hurt by someone within the past year? If so, by whom?: No Do you feel safe in your current relationship?: No Is there a partner from a previous relationship who is making you feel unsafe now?: No Are you made to feel afraid or neglected: No Advance Directives: No Advance Directives Information Provided: Yes Do you have thoughts of harming others: None Recently lost weight without trying: No Nutrition Risks: No Nutritional Risk Patient : No : No Poor oral hygiene: No Meds Allergies Allergy/AdvReac Type Severity Reaction Status Date / Time No Known Allergies Allergy Verified 10/01/21 21:07 Active Medications: Current Medications Albuterol Sulfate (Albuterol Sulfate 90 Mcg 8 Gm Inhaler) 2 puff INHALE RBID [facility] Last Admin: 10/02/21 08:36 Dose: 2 puff Documented by: Sodium Chloride (Ns) 1,000 mls @ 100 mls/hr IVCONT .Q10H [facility] Last Infusion: 10/02/21 11:00 Dose: 0 mls/hr Documented by: Nicotine (Nicotine 14 Mg Patch.Td24) 14 mg TRANSDERMA DAILY [facility] Pharmacy Consult (Consult Rx Perform Med Rec) 1 each MISCELLANE ONCE PRN PRN Reason: Consult order Home Medications Medication Instructions Recorded Confirmed Last Taken Type budesonide-formot 2 puff 10/01/21 10/01/21 Unknown History burt HFA 160 INHALATION BID mcg-4.5 mcg/actuation aerosol inhaler (Symbicort) citalopram 40 mg 1 tab PO DAILY 10/01/21 10/01/21 Unknown History tablet losartan 50 mg 2 tab PO DAILY 10/01/21 10/01/21 Unknown History tablet tiotropium 1 cap INHALATION 10/01/21 10/01/21 Unknown History bromide 18 mcg DAILY capsule with inhalation device (Spiriva with HandiHaler) Physical Exam Verdana 4l Vital Signs: Verdana 4d Verdana 4d Vital Signs: Verdana 4d Verdana 4Bd Last Vital Signs Verdana 4d Print Line Tailer New 4d Print Line Tailer New 4d Temp 97.9 F 10/02/21 06:00 Print Line Tailer New 4d Pulse 61 10/02/21 10:00 Print Line Tailer New 4d Resp 12 10/02/21 10:00 BP 144/88 H 10/02/21 10:00 Pulse Ox 98 10/02/21 10:00 BMI result Body Mass Index 20.4 Neuro: Other: She was alert and awake with normal spontaneity of speech fluency comprehension and anxious affect. Pupils were 4-5 mm round reactive to light. Extraocular muscles were intact. Visual hodgson are full to confrontation. Face was symmetrical. Tongue was midline. There was no pronator drift. There was no visual extinction. There was no focal weakness. Plantars were flexors. Speech was normal. Results Labs CBC & Chem 7: 10/02/21 05:24 10/02/21 05:24 Labs: Short CBC 10/01/21 10/02/21 Range/Units 20:09 05:24 WBC 8.4 6.8 (4.8-10.8) X10*3/uL Hgb 12.7 12.2 (12.0-16.0) g/dl Hct 37.1 36.4 L (37.0-47.0) % Plt Count 243 230 (160-400) X10*3/uL BMP 10/01/21 10/02/21 21:18 05:24 Sodium 139 140 Potassium 4.0 4.4 Chloride 103 110 H Carbon Dioxide 26 22 BUN 15 12 Creatinine 0.71 0.66 Calcium 8.4 8.1 L Cardiac Enzymes 10/01/21 Range/Units 21:18 Total Creatine Kinase 143 H (26-140) U/L Liver Function 10/01/21 Range/Units 21:18 Total Bilirubin 0.3 (0.0-1.0) mg/dL Direct Bilirubin < 0.2 (0.0-0.5) mg/dL AST 16 (5-31) U/L ALT 11 (0-31) U/L Alkaline Phosphatase 83 (39-117) U/L Albumin 3.8 (3.5-5.0) g/dL Her head CT did not reveal any acute abnormality. Mild biparietal atrophy was noted. CTA of brain and neck did not reveal any vascular stenosis. Chest imaging revealed some patchy lesion suggestive of maybe an inflammatory process. Assessment and Plan (1) Dysarthria: Status: Acute 56 years old woman who reported sudden onset of dysarthria and generalized weakness. With the suspicion of acute ischemic infarct she was treated with intravenous tPA. Her speech now was normal. Her laboratories also revealed positive testing for alcohol and marijuana. Her clinical features may or may not have been from stroke. An MRI of brain is usually helpful to figure this out. Without MRI of brain, it would be difficult to rule out possibility of stroke causing her symptoms. At the same time alcohol and drugs can also cause these symptoms but in that case patient usually is confused. She was not noted to be confused and reported that she remembered everything, which suggested stroke is more likely possibility. In any case, she can come out of ICU at this point if a bed is needed. She should be advised to stop using drug abuse, she be treated with anti-platelet agent after 24 hours of tPA. I recommend maybe a day more of observation before making decision for discharge. Procedures Date of Service Date of Service: 10/02/21
[2021-10-02] MEDS: Midazolam HCl/PF 2 MG/2 ML VIAL 3 MG IVPUSH (12:30)
--- NOTE | 2021-10-02 13:00 | PC.NURSE ---
Pt brought to MRI, too anxious with first attempt, 1mg IV ativan given with positive effect for only 15 min, pt did not tolerate scan had to retry. MD stated to give 3mg IV versed, given at 1230 with positive therapeutic effect, pt resting comfortably RR 18 AK 64bpm.
[2021-10-02] MEDS: Nicotine 14 MG PATCH.TD24 TRANSDERMA (14:48)
--- NOTE | 2021-10-02 20:03 | PC.NURSE ---
Patient assessed. Neuro's intact, A&O x4. Pt wondering about having PO fluids. Pt passed bedside swallow eval. All scans negative. Dr. Wilkinson called and given update of the above information. okay with pt having fluids and jello overnight. Pt neuro evals Q1H, per Dr. Wilkinson okay to change neuro eval to Q4H.
[2021-10-03] VITALS: BP 165/71; PULSE 74; RESP 20; TEMP 37.2; O2SAT 91
[2021-10-03 04:00] VITALS: BP 163/94; PULSE 74; RESP 20; TEMP 37.2; O2SAT 93
[2021-10-03 07:30] LABS: MANUAL DIFF FLAG NO
[2021-10-03 07:32] LABS: Basophils Percent Auto 0.5 % (0-2); Eosinophils Absolute Auto 0.1 X10*3/uL (0.0-0.4); Eosinophils Percent Auto 1.3 % (0-4); Hematocrit 38.8 % (37.0-47.0); Hemoglobin 13.4 g/dl (12.0-16.0); Imm Gran Abs Auto 0.02 X10*3/uL (0.00-0.03); Imm Gran Pct Auto 0.3 % (0.0-0.4); Lymphocytes Absolute Auto 1.7 X10*3/uL (1.2-4.9); Lymphocytes Percent Auto 26.4 % (20-40); Mean Corpuscular HGB Conc 34.5 g/dl (31.0-35.0); Mean Corpuscular Hemoglobin 31.8 pg (27.0-33.0); Mean Corpuscular Volume 91.9 fL (80.0-98.0); Mean Platelet Volume 9.2 fL (9.4-12.3); Monocytes Absolute Auto 0.4 X10*3/uL (0.1-1.2); Monocytes Percent Auto 6.7 % (2-11); Neutrophils Absolute Auto 4.2 x10*3/uL (2.0-8.3); Neutrophils Percent Auto 64.8 % (45-73); Platelet Count 231 X10*3/uL (160-400); Red Blood Count 4.22 X10*6/uL (4.20-5.50); Red Cell Distribution Width 12.5 % (11.0-16.0); White Blood Count 6.4 X10*3/uL (4.8-10.8)
[2021-10-03 07:51] LABS: Anion Gap 11 (12-20); Blood Urea Nitrogen 7 mg/dL (9-16); Calcium 8.7 mg/dL (8.4-10.2); Carbon Dioxide 27 mmol/L (22-29); Chloride 106 mmol/L (96-108); Creatinine Clr Calc Pharmacy 80.4; Estimated Glomerular Filt Rate > 60; Glucose Random 113 mg/dL (60-115); Phosphorus 3.3 mg/dL (2.7-4.5); Potassium 4.1 mmol/L (3.3-5.1); Sodium 140 mmol/L (135-145)
[2021-10-03] MEDS: Albuterol Sulfate 90 MCG 8 GM INHALER 2 PUFF INHALE (07:55)
[2021-10-03 07:56] VITALS: BP 152/83; PULSE 74; PULSE 82; RESP 18; RESP 20; TEMP 37.1; O2SAT 93; O2SAT 96
--- NOTE | 2021-10-03 09:17 | MHC.CM.PN ---
Patient lives at home w/ and daughter. 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 She just moved her family to [place]: [address] [place] [id number]. No prior services or equipment. She indicates that she is back to baseline functionally at the moment; she got up, washed up independently, etc. Will follow for D/C recommendations.
--- NOTE | 2021-10-03 09:24 | MHC.CM.PN ---
Plan is home w/family via family. CM to follow.
--- NOTE | 2021-10-03 10:23 | P.DS_ITS ---
DS: Providers Provider Date of Service: 10/03/21 Date of admission: 10/01/21 20:56 Primary care physician: Unknown Physician Consults: 10/01/21 20:56 Consult to Neurology Routine Consulting Provider: [facility] Reason for consultation: tPa given for ? CVA Has provider been notified: No 10/03/21 09:35 Consult to Care Team Routine Comment: Reason for consultation: care team DS: Diagnosis Discharge Diagnosis (1) Dysarthria: Status: Acute DS: Summary Hospital Course Hospital Course: chief complaint dysarthria/dizziness Patient is a 56-year-old female past medical history of COPD and HTN who was brought in by ambulance on a stroke alert.? The pt states she was at her home today, cleaning all day with her and daughter, they were drinking alcohol, the patient claims she only had 3 beers, the confirmed this.? The and the daughter states that at 6:15pm, she had a sudden change in her speech, they described it as a slowing of her speech? and she became clumsy so they called 911. Forty-five mins after the last known well time, in the emergency department, a decision was made to give the patient tPA. ? During my exam, the patient's only complaint was that she feels like she is talking slower than normal and she felt dizzy and wanted to keep her eyes closed but when I asked her open them, she was okay.? My exam revealed no deficits ex cept pupils were sluggish, could be due to etoh. Patient denied any chest pain, shortness of breath, abdominal pain or headache.? Patient stated she drank 2 beers this afternoon and did not use any street drugs today. ? Patient is also asking for an albuterol inhaler as she uses hers twice daily and is due. Patient's head CT and head and neck CTA were unremarkable. Patient's labs were remarkable for ethyl alcohol 84, chemistry pending. Hospital course 56-year-old female hypertensive ongoing smoker with history of COPD presents with sudden onset of dysarthria over which she had no control but simultaneously had severe vertiginous dizziness had to close her eye to overcome that feeling with associated nausea patient CT scan brain and CT head and neck showed no acute abnormality due to acute onset of symptoms patient received TPN was subsequently admitted to intensive care unit all her symptoms resolved, patient has been speaking fine, dizziness resolved, no confusion noted, no tremors no signs of alcohol withdrawal, therefore less likely symptoms related to alcohol intoxication, or withdrawal, despite alcohol level of 84 on admission, patient admitted of drinking couple beers most of the evenings, denied any history of prior alcohol withdrawal, or delirium tremens, patient was observed closely in ICU and subsequently transitioned down to intermediate care unit wish she continued to remain hemodynamically stable walking with a steady gait with no weakness numbness patient evaluated by Dr. Patino and it was felt that his symptoms are more consistent with acute CVA an MRI study showed no acute abnormality a bedside echocardiogram in the ICU showed globally normal anatomy with normal systolic function no wall motion abnormality however there was a concern for PFO therefore recommended patient to undergo a complete echocardiogram but patient wishes to be discharged home and is willing to schedule study as outpatient since she has a handicap daughter she needs to take care of, since patient does not require PT, OT evaluation with normal speech, strength and gait she is being discharged home on aspirin 81 mg by mouth daily her dose of losartan has been reduced to 50 mg by mouth daily since on arrival patient was noted to have some significantly low blood pressures, her LDL is 65, blood sugars stable she has been placed on nicotine patch for smoking cessation counseling done. patient seen by Neurology they recommend to continue blood pressure medication and to add aspirin. In regard to alcohol abuse patient seen by care team support provided. Time Spent with Patient Time attestation: Total time spent providing and/or coordinating discharge services: Discharge coordination time: Greater than 30 minutes Quality: Stroke Does the patient have a stroke diagnosis?: Yes Reason for No Anti-thrombotic at DC: N/A - Med Ordered Reason for No Anticoagulant at DC: N/A - Med Ordered Reason Not Initiating IV-Tpa: N/A - Med Ordered Reason for No Anti-thrombotic by Day Two: N/A - Med Ordered Reason for No Statin at DC: Drug treatment not indicated Physical Exam Verdana 4l Vital Signs: Verdana 4d Verdana 4d Vital Signs: Verdana 4d Verdana 4Bd Last Vital Signs Verdana 4d Zinc Miner New 4d Zinc Miner New 4d Temp 98.8 F 10/03/21 07:56 Zinc Miner New 4d Pulse 74 10/03/21 07:56 Zinc Miner New 4d Resp 18 10/03/21 07:56 BP 152/83 H 10/03/21 07:56 Pulse Ox 93 10/03/21 07:56 BMI result Body Mass Index 20.4 Const: Other: General resting comfortably in no acute distress. Neck supple no JVD. CVS regular rate rhythm, Respiratory lungs clear to auscultation, no respiratory distress Gastrointestinal abdomen soft, nontender, bowel sounds audible Extremities no edema. Neuro nonfocal, moving all 4 extremity ,speech clear, steady gait. Skin no rash psych appropriate affect DS: Data Data Completed and Pending Labs on day of discharge: Laboratory Results - last 24 hr 10/03/21 10/03/21 07:02 07:02 WBC 6.4 RBC 4.22 Hgb 13.4 Hct 38.8 MCV 91.9 MCH 31.8 MCHC 34.5 RDW 12.5 Plt Count 231 MPV 9.2 L Immature Gran % (Auto) 0.3 Neut % (Auto) 64.8 Lymph % (Auto) 26.4 [place] % (Auto) 6.7 Eos % (Auto) 1.3 Baso % (Auto) 0.5 Lymph # (Auto) 1.7 [place] # (Auto) 0.4 Eos # (Auto) 0.1 Baso # (Auto) 0.0 Abs Immat Gran (auto) 0.02 Absolute Neuts (auto) 4.2 Absolute Nucleated RBC 0.000 Nucleated RBC % (auto) 0.0 Sodium 140 Potassium 4.1 Chloride 106 Carbon Dioxide 27 Anion Gap 11 L BUN 7 L Creatinine 0.65 Estim Creat Clear Calc 80.4 Estimated GFR > 60 Random Glucose 113 Calcium 8.7 D Phosphorus 3.3 Magnesium 2.0 Discharge Plan Discharge Patient Disposition: Home, Self-Care Discharge Diagnosis: acute cva Tobacco use disorder alcohol dependence Referrals: Physician,Unknown J [Primary Care Provider] - 1 Week Discharge Medications: New nicotine 14 mg/24 hr Patch 24 Hour 14 mg transdermal DAILY Qty: 30 0RF aspirin 81 mg Tablet,Delayed Release (Dr/Ec) 81 mg PO DAILY Qty: 30 0RF Continued losartan 50 mg tablet 2 tab PO DAILY 0RF citalopram 40 mg tablet 1 tab PO DAILY 0RF Spiriva with HandiHaler 18 mcg capsule, w/inhalation device 1 cap inhalation DAILY 0RF budesonide-formoterol [Symbicort] 160-4.5 mcg/actuation HFA aerosol inhaler 2 puff inhalation BID 0RF Changed losartan 50 mg tablet 1 tab PO DAILY Qty: 0 0RF Discharge Orders: Discharge Order (Routine); Ordered 10/03/21 Ordered By: Gabriela Hernandez Diet: low fat, low cholesterol Activity on Discharge: As tolerated Stand Alone Forms: Patient Portal Discharge page Care Plan Goals: dysarthria/ dizziness status post tPA likely due to acute CVA recommend to obtain echocardiogram to be schedule this outpatient by primary care physician to rule out PFO take aspirin and blood pressure medication, dose of losartan decreased to 50 mg 1 tablet by mouth daily since noted to have low blood pressures on arrival strongly advised to abstain from alcohol, take aspirin 81 mg by mouth daily. Health Concerns: hypertension/ smoking/ alcohol dependence strongly recommend to abstain from smoking use nicotine patch and recommend to abstain from alcohol Plan of Treatment: outpatient follow-up with PCP in 1 week, schedule echocardiogram with bubble study to rule out PFO Assessment: per discharge summary.
--- NOTE | 2021-10-03 10:30 | PC.NURSE ---
Pt ambulated with this RN in room. pt steady on feet, no abnormal gait issues. No c/o weakness, dizziness, or lightheadedness with ambulation. Pt back in recliner, resting comfortbaly. Call cuellar in reach. Makes needs known.
--- NOTE | 2021-10-03 10:34 | MHC.CM.PN ---
ordr for home, self care. CM acknowledge.
--- NOTE | 2021-10-03 10:42 | MHC.RECOVSUP ---
Recovery Support note: Patient is a 56 year old Female who presented to [facility] ED due to difficulty speaking. This proposal manager writer met with patient to discuss her alcohol use and recovery supports. Discussed with patient the circumstances that occurred prior to hospitalization and how patient is feeling today. Patient reports having 1-3 beers a day and does not find it to interfere with her life at this time. Patient reports yesterday she had a beer around 1PM and acknowledges that this is an early time of the day to be drinking. Patient reports she wakes up around 4AM and that she was having a beer while preparing food. Patient reports alcohol use has never been a problem for her and that she could reduce her consumption without issue. Patient reports she is supported by her and that she has a daughter in [place] who she keeps in touch with regularly. Patient reports she feels as though she is smoking more cigarettes than she would like and that she plans to cut down on her nicotine use. Discussed case with patient's RN.
[2021-10-03] MEDS: Aspirin Enteric Coated 81 MG TABLET.DR PO (10:45)
[2021-10-03] MEDS: Nicotine 14 MG PATCH.TD24 TRANSDERMA (10:45)
[2021-10-03] MEDS: Escitalopram Oxalate 20 MG TABLET PO (10:45)
[2021-10-03] MEDS: Losartan Potassium 50 MG TABLET PO (10:46)
== END 2021-10-03 11:45 | disposition home or self-care (01) | DRG 45 ==
LOC: HO.ED 20:44 → HO.EDOVER 21:07 → HO.ICU 23:21 → HO.IMC 10-02 13:23
PROVIDERS: Internal Medicine Cardiovascular Disease; Admitting Provider Physician Assistant; Emergency Provider Emergency Medicine Emergency Medical Services; Visit Provider Physician Assistant
DX: I63.9 Cerebral infarction, unspecified (principal); I10 Essential (primary) hypertension; J44.9 Chronic obstructive pulmonary disease, unspecified; F17.210 Nicotine dependence, cigarettes, uncomplicated; R29.702 NIHSS score 2; R47.1 Dysarthria and anarthria; F10.120 Alcohol abuse with intoxication, uncomplicated; Y90.4 Blood alcohol level of 80-99 mg/100 ml; Z20.822 Contact with and (suspected) exposure to COVID-19; Z79.82 Long term (current) use of aspirin; Z79.899 Other long term (current) drug therapy
CPT/HCPCS: 36415; 70450; 70496; 70498; 70551; 71045; 80048; 80061; 80076; 80307; 82077; 82550; 82947; 83735; 84100; 84484; 85025; 85610; 85730; 87635; 93005; 99285; 99291; J2060; J2250; J2997

== ENCOUNTER 2021-10-26 11:46 | Outpatient (REF) | payer BC, SELFPAY ==
--- NOTE | ~2021-10-26 | XR_ITS ---
EXAMINATION: XR CHEST CLINICAL INFORMATION: Acute bronchitis COMPARISON: Previous chest x-ray 10/01/2021 TECHNIQUE: 2 views of the chest were obtained. FINDINGS: The cardiac and mediastinal contours are stable. The lungs are well inflated. There are increased linear markings seen in the right upper lobe overlying the anterior first and second ribs. Otherwise increased interstitial markings seen on September 2021 exam have resolved. There is a 1 x 2 cm density at the right lateral costophrenic angle. This overlies the right posterior 10th rib and anterior eighth rib. It is uncertain whether this represents something in the bone or nodule. This was not seen on previous chest x-ray. There is mild curvature of the proximal thoracic spine and degenerative changes. XR/XR chest 2V IMPRESSION: Persistent increased markings in the right upper lobe questionable for bronchitis. Well-inflated lungs suggestive of emphysematous changes or COPD. 1 x 2 cm nodular density at the right lateral costophrenic angle not appreciated on prior exam. It is uncertain whether this is related to the overlapping bone.
== END 2021-10-26 11:47 | disposition home or self-care (01) ==
LOC: HO.HMGCX 11:46
PROVIDERS: Visit Provider Internal Medicine
DX: J20.9 Acute bronchitis, unspecified (principal)
CPT/HCPCS: 71046

== ENCOUNTER 2024-09-09 10:40 | Observation (INO) | payer OTHER, SELFPAY ==
[2024-09-09] VITALS (7 sets, daily range): BP systolic 116–160; BP diastolic 61–84; PULSE 60–92; RESP 14–20; TEMP 36.6–36.9; O2SAT 90–98; BMI 26.2; BMI 24.7
--- NOTE | ~2024-09-09 | CT_ITS ---
EXAMINATION: CT HEAD WITHOUT CONTRAST (STROKE PROTOCOL) CLINICAL INFORMATION: Stroke protocol. Weakness COMPARISON: CT head 10/01/2021 TECHNIQUE: Contiguous axial imaging was performed from the skull base to vertex without intravenous administration of contrast. This CT examination was performed using dose optimization techniques as appropriate, variously including the following: *Automated exposure control *Adjustment of mA and/or kV according to patient size (this includes techniques or standardized protocols for targeted exams where dose is matched to indication/reason for exam; i.e. extremities or head) *Use of iterative reconstruction technique FINDINGS: There is no acute intra-axial, extra-axial bleed, masses or midline shift. There is no acute infarction evolution. There is no edema. The lateral ventricles are symmetrical but enlarged. Bone windows reveal no calvarial abnormality. There is no scalp soft tissue abnormality. There is minimal mucoperiosteal thickening right sphenoid sinus. Rest of the sinuses and mastoid air cells are well-aerated. Visualized optic globe, optic nerve and the periorbital soft tissues are normal. CT/CT head for STROKE IMPRESSION: No acute intracranial process seen. This critical result was discussed with Natalie Winters at 11:15 AM on 09/09/2024. It was ascertained that the content and urgency of the report was understood at the time of direct communication. Electronically signed by: Daniel Henderson MD 09/09/2024 11:[address] [facility]
--- NOTE | ~2024-09-09 | XR_ITS ---
EXAMINATION: XR CHEST CLINICAL INFORMATION: Stroke Protocol COMPARISON: October 26, 2021 TECHNIQUE: Frontal view of the chest was obtained. FINDINGS: Pulmonary reticular pattern. Linear opacities in the periphery of the right lower hemithorax. No consolidation, pleural effusion or pneumothorax. Cardiomediastinal silhouette is normal in size. S-shaped curvature of the upper thoracic spine. XR/XR chest 1V IMPRESSION: Mild interstitial edema in the correct clinical settings. Chronic interstitial lung disease. Scoliosis, upper thoracic spine. Electronically signed by: Dionte Zhou MD 09/09/2024 11:47 AM EST
--- NOTE | ~2024-09-09 | MR_ITS ---
EXAMINATION: MR BRAIN WITHOUT CONTRAST CLINICAL INFORMATION: Dysarthria and unsteady gait. Rule out stroke. COMPARISON: MRI brain 10/02/2021. CTA head and neck, noncontrast head CT 09/09/2024. TECHNIQUE: MRI of the brain was obtained using routine sequences without contrast. Examination performed on a 1.5 Nirali Siemens unit using standard sequences. FINDINGS: There is no diffusion restriction. There is no intracranial hemorrhage, acute infarction, mass effect, or edema. Ventricles, sulci, and cisterns are normal in size and configuration for patient age. No shift of midline. No abnormal hemosiderin deposition is identified. There are no significant white matter abnormalities identified. Midline structures appear normally formed. The pituitary gland appears normal. Posterior fossa structures appear normal. Cerebellar tonsils are appropriately located. Major flow voids are preserved within the skull base. The globes and orbital contents demonstrate no abnormalities. There are some mild frothy secretions in the right sphenoid sinus. Paranasal sinuses are otherwise clear bilaterally. Nasal septum is midline without spur. The mastoids and tympanic cavities are normally aerated. Extracranial soft tissues demonstrate no abnormalities. No suspicious bone marrow changes are evident. Atlantoaxial joint demonstrates exue-uh-iheeqeky arthritic change. MR/MR head/brain wo con IMPRESSION: 1. No evidence of acute intracranial hemorrhage, acute infarction, mass effect, or edema. Electronically signed by: Charly Barajas MD 09/09/2024 01:40 PM [facility]
--- NOTE | ~2024-09-09 | CT_ITS ---
EXAMINATION: CTA NECK WITH CONTRAST (STROKE) CTA BRAIN WITH CONTRAST (STROKE) CLINICAL INFORMATION: Suspect acute stroke. Assess for major vessel occlusion. Unable to speak. Please call report. COMPARISON: CT angiogram head and neck dated October 01, 2021. TECHNIQUE: CTA of the head and neck was performed in the axial plane from the mediastinum to the skull vertex using 70 mL Omnipaque 350 intravenous contrast. Additional reformatted multiplanar images including maximum intensity projection MIP images are generated on the CT workstation. This CT examination was performed using dose optimization techniques as appropriate, variously including the following: *Automated exposure control *Adjustment of mA and/or kV according to patient size (this includes techniques or standardized protocols for targeted exams where dose is matched to indication/reason for exam; i.e. extremities or head) *Use of iterative reconstruction technique DLP: 1500 mGy centimeters FINDINGS: The degree of stenosis determined by criteria similar to NASCET. Brain: No acute intracranial hemorrhage, mass effect, midline shift, hydrocephalus or herniation. Prominence of the extra-axial CSF spaces cerebral sulci and ventricles involving mostly the frontotemporal regions. Posterior cranial fossa contents demonstrated no acute intracranial hemorrhage or mass effect. Calcified plaques in the cavernous supracavernous segments both ICAs. No abnormal enhancement within the intra-axial or the extra-axial compartment of the cranium. Chest CTA: Aortic arch, no focal stenosis or intimal flap or abnormal diameter. Calcified plaque in the origin of the left subclavian artery. Neck CTA: Right CCA: Normal patency. Tortuosity. No focal stenosis or intimal flap. Right ICA: Calcified plaque. Normal patency. Tortuosity. No focal stenosis or intimal flap. Retropharyngeal trajectory. Left CCA: Normal patency. No focal stenosis. No intimal flap. Left ICA: Calcified plaque in the proximal segment representing 50% stenosis. No intimal flap. Tortuosity. V1/V2 segments: Normal patency. Tortuosity and the proximal segments. Both originating from the subclavian arteries. No focal stenosis. No intimal flap. Codominant. Brain CTA: Anterior cerebral circulation: ICAs: Calcified plaques in the cavernous and supraclinoid segments. Normal patency. No focal stenosis. No abrupt cut off. No intimal flap. MCA's: Normal patency. No focal stenosis. No abrupt cut off. No intimal flap. No vascular abnormality. Bifurcation/trifurcation demonstrated no contour vascular irregularity. ACAs: Normal patency. No abrupt cut off. Anterior communicant artery: Patent. Ophthalmic arteries: Patent. Posterior communicating arteries: Patent. Status post right posterior communicating artery. Posterior cerebral circulation: V3/V4 segments: Patent. No intimal flap. No focal stenosis. Posterior inferior cerebellar arteries are patent and likely orientating on a common trunk with the anterior inferior cerebellar arteries. Basilar artery: No focal stenosis. No intimal flap. Superior cerebellar arteries: Patent. seat coverer: Absent/atresia versus hypoplastic, right P1 segment No focal stenosis or abrupt cut off. Ancillary findings: Centrilobular emphysematous changes. Mosaic pattern in the included lungs. Multilevel cervical spondylosis resulting in grade 1 anterolisthesis C3-4 and C4-5 levels with a reverse curvature apex at C5-6. Effervescent secretions, sphenoid sinus CT/CT angio head neck STROKE IMPRESSION: No main cerebral artery occlusion or embolus. No dissection, vessels of the neck. Calcified plaque left ICA representing 50% stenosis. 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 If patient's symptoms persist recommend non-IV contrast MRI brain. This critical test result is communicated to: Physician esl instructional assistant, Natalie Winters at 11:20 AM Electronically signed by: Dionte Zhou MD 09/09/2024 11:37 AM [facility] [place]
--- NOTE | 2024-09-09 10:51 | ECG_ITS ---
Test Reason : stroke Blood Pressure : */* mmHG Vent. Rate : 61 BPM Atrial Rate : 61 BPM P-R Int : 150 ms QRS Dur : 82 ms QT Int : 438 ms P-R-T Axes : 77 62 60 degrees QTcB Int : 440 ms Normal sinus rhythm Normal ECG When compared with ECG of 01-Oct-2021 20:03, No significant change was found Referred By: Natalie Winters Electronically Signed By: Solis Castañeda
--- NOTE | 2024-09-09 10:51 | ED.GENADULT ---
HPI - General Adult General Chief complaint: General Medical Stated complaint: SOB/HOME O2 @NOC,98% RA,PT STS ?TIA PER EMS Time Seen by Provider: 09/09/24 10:43 Source: patient, EMS, RN notes reviewed and old records reviewed Mode of arrival: EMS History of Present Illness ED Provider: Natalie Winters PA-C HPI narrative: 59-year-old female with a past medical history of COPD on 2 L NC at bedtime, HTN, TIA, on 81 mg ASA, presenting to the ED via EMS complaining of sudden onset generalized weakness, lightheadedness/dizziness feeling like she was going to fall, and dysarthria beginning at 09:20 this morning. Per EMS symptoms resolved upon their arrival, however, patient was unsteady on her feet. Patient states feels as though something is still wrong and speech is not at her baseline. Also reports cough, SOB/COPD exacerbation x2 days. Denies chest pain, abdominal pain, nausea/vomiting, recent illness, headache, vision loss Related Data Home Medications ?Medication ?Instructions ?Recorded ?Confirmed citalopram 40 mg tablet 1 tab PO DAILY 10/01/21 10/26/21 losartan 100 mg tablet 100 mg PO DAILY 10/26/21 10/26/21 albuterol sulfate 2.5 mg/3 mL mg inhalation 09/09/24 (0.083 %) solution for nebulization albuterol sulfate 90 mcg/actuation 2 inh inhalation QID PRN shortness 09/09/24 aerosol inhaler of breath or wheezing atorvastatin 10 mg tablet 10 mg PO DAILY 09/09/24 fluticasone fur. 100 mcg-umeclid 1 ea inhalation DAILY 09/09/24 62.5 mcg-vilant 25 mcg inhalat.powder (Trelegy Ellipta) varenicline 1 mg tablet 1 mg PO BID 09/09/24 Previous Rx's ?Medication ?Instructions ?Recorded aspirin 81 mg tablet,delayed 81 mg PO DAILY #30 tabs 10/03/21 release prednisone 20 mg tablet 60 mg (3 x 20 mg) PO DAILY #9 tabs 10/26/21 Allergies Allergy/AdvReac Type Severity Reaction Status Date / Time No Known Allergies Allergy Verified 09/09/24 10:49 Review of Systems Review of Systems: Yes all other systems are reviewed and are negative Constitutional: Constitutional: Reports as per HPI [facility] Past Medical History Attestation statement: The following information was validated with the patient. Source: old records reviewed Medical History HTN (hypertension) COPD (chronic obstructive pulmonary disease) Social History Social History Household Members: Significant Other Household Members Other:: DAUGHTER Housing: Condominium Do you presently have visiting nurse or other home services: No Alcohol intake: current Alcohol type: beer Patient Tobacco Use Status: Current everyday Tobacco user Tobacco use type: Cigarette Cigarette Packs Per Day: 1 Cigarettes Per Day: 10 Years Smoked: 40 Smoked in Last 30 Days: Yes Second Hand Smoke Exposure: No Use of substances other than those prescribed or required for medical reasons: No Advance Directives: No Advance Directives Information Provided: Yes Do you have a plan to hurt others: No Plan service: No Current occupational status: employed Physical Exam ED Vital Signs: Vital Signs - 24 hr 09/09/24 10:46 09/09/24 11:23 09/09/24 14:27 Temperature 97.9 F Pulse Rate 66 63 62 Respiratory Rate 18 14 15 Blood Pressure 138/73 141/79 H Pulse Oximetry 97 97 Oxygen Delivery Method Room Air Room Air BMI result Body Mass Index 26.2 Const General: cooperative, healthy appearing and no acute distress Orientation/consciousness: patient oriented x3 Limitations: no limitations HENMT Head: Yes normal to inspection and Yes atraumatic Ears: hearing grossly normal bilaterally General nose exam: Normal external nose present Face and sinus: Yes normal facial exam Mouth: no drooling Throat: Yes posterior oropharynx normal Eyes General: appearance normal, both eyes and all related structures Pupils: Equal, round and reactive pupils present EOM: EOMs intact bilaterally Neck Neck: Yes normal visual inspection and Yes no meningeal signs Resp Effort & Inspection: normal respiratory effort and no respiratory distress Auscultation: clear to auscultation bilaterally and wheezes expiratory wheezes (Bibasilar) Cardio Rate: regular rate Heart sounds: S1 normal heart sound present and S2 normal heart sound present GI Inspection: Yes normal to inspection Palpation (GI): Soft to palpation, nontender, no guarding and not rigid Skin Rashes: no rashes Wounds: no wounds Neuro General: patient oriented x3, tone normal, moves all extremities, no meningeal signs, no focal motor deficits and CN's II-XI intact bilaterally Cranial nerves: Yes CN's II-XII intact bilaterally, Yes Equal, round and reactive pupils present and Yes Bilaterally intact EOM present Cognition (Neuro): normal cognition Speech: Other speech findings present (Neuro) (slow speech) Gait exam (Neuro): Normal gait present Motor exam (neuro): 5/5 motor strength present throughout, Pronator motor function not present and no tremor noted Coordination: [id number] test normal Romberg Test: Negative Extrem General: Yes normal to inspection NIH Stroke Scale Internal: Initial- Upon Arrival Level of Consciousness: Alert Level of Consciousness Questions: Answers both questions correctly Level of Consciousness Commands: Performs both tasks correctly Best Gaze: Normal Visual: No visual loss Facial Palsy: Normal Motor Arm (Right): No drift Motor Arm (Left): No drift Motor Leg (Right): No drift Motor Leg (Left): No drift Limb Ataxia: Absent Sensory: Normal Best Language: No aphasia Dysarthia: Normal Extinction and Inattention: No abnormality Score: 0 Course Course Course Narrative: CT head for STROKE IMPRESSION: No acute intracranial process seen. This critical result was discussed with Natalie Winters at 11:15 AM on 09/09/2024. It was ascertained that the content and urgency of the report was understood at the time of direct communication. > spoke with radiologist about CTA head and neck > unremarkable. Will obtain MRI. Screening form completed 11:30 -1136--labs reassuring XR chest 1V IMPRESSION: Mild interstitial edema in the correct clinical settings. Chronic interstitial lung disease. Scoliosis, upper thoracic spine. -1359--CT angio head neck STROKE IMPRESSION: No main cerebral artery occlusion or embolus. No dissection, vessels of the neck. Calcified plaque left ICA representing 50% stenosis. 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 If patient's symptoms persist recommend non-IV contrast MRI brain. This critical test result is communicated to: Physician multimedia production assistant, Natalie Winters at 11:20 AM MR head/brain wo con IMPRESSION: 1. No evidence of acute intracranial hemorrhage, acute infarction, mass effect, or edema. > plan to admit for further management for TIA Medications Administered Discontinued Medications Generic Name Dose Route Start Last Admin Trade Name Freq PRN Reason Stop Dose Admin Albuterol Sulfate 2.5 mg 09/09/24 14:27 09/09/24 14:30 Albuterol Sulfate (0.083%) 2.5 Mg/3 Ml Vial.Neb INHALE 09/09/24 14:28 2.5 mg ONCE ONE Administration Iohexol 100 ml 09/09/24 11:01 09/09/24 11:02 Iohexol 350 Mg/Ml 100 Ml Infus..Btl IV 09/09/24 11:02 70 ml ONCE ONE Administration Midazolam HCl 2 mg 09/09/24 11:33 09/09/24 11:40 Midazolam Hcl 2 Mg/2 Ml Vial IVPUSH 09/09/24 11:34 2 mg ONCE ONE Administration Midazolam HCl 2 mg 09/09/24 12:12 09/09/24 12:37 Midazolam Hcl 2 Mg/2 Ml Vial IVPUSH 09/09/24 12:13 Not Given ONCE ONE Medical Decision Making Medical Decision Making MDM Narrative: 59-year-old female with a past medical history of COPD on 2 L NC at bedtime, HTN, TIA, on 81 mg ASA, presenting to the ED via EMS complaining of sudden onset generalized weakness, lightheadedness/dizziness feeling like she was going to fall, and dysarthria beginning at 09:20 this morning. On exam vital signs stable, NAD, nontoxic appearing, slow speech, no dysarthria or aphasia. No focal deficits. Slight end expiratory wheeze appreciated. Concern for CVA vs TIA vs COPD exacerbation vs viral illness vs pneumonia. Lower suspicion for ACS/PE at this time Stroke protocol initiated Plan: EKG, labs, UA, head CT, CTA head and neck, CXR, ED bronch protocol Please refer to course for remaining clinical decision making, interpretation of labs/imaging results, and discussions with consultants and/or family members. Differential Diagnosis Differential Diagnoses: The differential diagnosis associated with the presentation includes As above Admission/Observation Consideration of admission/observation: Escalation of care including admission/observation considered Consult Healthcare Provider Management of the patient was discussed with: Drying Frame Operator Lab Data [facility] Lab Attestation statement: I reviewed the patient's lab results. 09/09/24 11:01 09/09/24 11:01 Labs: Lab Results 09/09/24 09/09/24 Range/Units 11:01 11:02 WBC 8.5 (4.8-10.8) X10*3/uL RBC 4.06 L (4.20-5.50) X10*6/uL Hgb 12.5 (12.0-16.0) g/dl Hct 37.3 (37.0-47.0) % MCV 91.9 (80.0-98.0) fL MCH 30.8 (27.0-33.0) pg MCHC 33.5 (31.0-35.0) g/dl RDW 12.6 (11.0-16.0) % Plt Count 217 (160-400) X10*3/uL MPV 9.0 L (9.4-12.3) fL Immature Gran % (Auto) 0.4 (0.0-0.4) % Neut % (Auto) 68.4 (45-73) % Lymph % (Auto) 22.0 (20-40) % [place] % (Auto) 7.3 (2-11) % Eos % (Auto) 1.4 (0-4) % Baso % (Auto) 0.5 (0-2) % Lymph # (Auto) 1.9 (1.2-4.9) X10*3/uL [place] # (Auto) 0.6 (0.1-1.2) X10*3/uL Eos # (Auto) 0.1 (0.0-0.4) X10*3/uL Baso # (Auto) 0.0 (0.0-0.2) X10*3/uL Abs Immat Gran (auto) 0.03 (0.00-0.03) X10*3/uL Absolute Neuts (auto) 5.8 (2.0-8.3) x10*3/uL Absolute Nucleated RBC 0.000 (0.0-0.012) X10*3/uL Nucleated RBC % (auto) 0.0 (0.0-0.2) /100WBC Hold Purple Top SEE NOTE PT 11.2 (10.9-12.4) SEC Whole Blood PT 11.8 (11.1-13.5) sec INR 1.0 (0.9-1.1) Whole Blood INR 1.0 (0.9-1.1) APTT 31.5 (26.0-36.8) SEC Sodium 140 (135-145) mmol/L Potassium 4.3 (3.3-5.1) mmol/L Chloride 105 (96-108) mmol/L Carbon Dioxide 30 H (22-29) mmol/L Anion Gap 9 L (12-20) BUN 15 (9-16) mg/dL Creatinine 0.71 (0.5-1.4) mg/dL Estim Creat Clear Calc 73.6 Estimated GFR > 60 POC Glucose 86 (60-115) mg/dL Random Glucose 81 (60-115) mg/dL Calcium 8.5 (8.4-10.2) mg/dL Magnesium 2.2 (1.6-2.6) mg/dL Total Bilirubin 0.5 (0.0-1.0) mg/dL Direct Bilirubin 0.2 (0.0-0.5) mg/dL AST 24 (5-31) U/L ALT 21 (0-31) U/L Alkaline Phosphatase 67 (39-117) U/L Troponin I High Sens < 2.7 (<3.5-17.0) ng/L Total Protein 6.6 (6.5-8.0) g/dL Albumin 4.1 (3.5-5.0) g/dL Triglycerides 154 H (<150) mg/dL Cholesterol 180 (<200) mg/dL LDL Cholesterol, Calc 53 (<100) mg/dL HDL Cholesterol 97 (>40) mg/dL Independent Interpretation I performed an independent interpretation of an: EKG and CT Scan Radiology Impression Discussion of test interpretation with radiology: I have reviewed the radiologist's reading. Independent Historian Clinical information obtained from an independent historian. History obtained from or confirmed by: EMS External Record Review External record reviewed: Inpatient record, Office record, Outpatient record, Prior outpatient labs, Prior outpatient radiology, Primary care record and Outside ED record Tests considered The following testing was considered but not selected: As above Chronic Conditions Patient?s care impacted by: Hypertension and Other (COPD) Social Determinants Patient?s care significantly limited by Social Determinants of Health including: Other Social Determinant of Health Critical Care Time Critical Care Time Critical Care Time: Yes Total Critical Care Time: 45 Attestation: I have personally provided critical care time exclusive of time spent on separately billable procedures. Time includes review of lab data, radiology results, discussion with consultants, and monitoring for potential decompensation. Intervention performed as documented. Discharge Plan Discharge Clinical Impression: TIA (transient ischemic attack) Patient Disposition: Admitted As Inpatient
[2024-09-09] MEDS: iohexoL 350 MG/ML 100 ML INFUS..BTL IV (11:02)
[2024-09-09 11:10] LABS: Prothrombin Time Whole Bld POC 11.8 sec (11.1-13.5)
[2024-09-09 11:11] LABS: Glucose, Whole Blood 86 mg/dL (60-115)
[2024-09-09 11:13] LABS: MANUAL DIFF FLAG NO
--- NOTE | 2024-09-09 11:16 | PC.NURSE ---
Pt. returned from CT and is in ED 13
[2024-09-09 11:19] LABS: Basophils Percent Auto 0.5 % (0-2); Eosinophils Absolute Auto 0.1 X10*3/uL (0.0-0.4); Eosinophils Percent Auto 1.4 % (0-4); Hematocrit 37.3 % (37.0-47.0); Hemoglobin 12.5 g/dl (12.0-16.0); Imm Gran Abs Auto 0.03 X10*3/uL (0.00-0.03); Imm Gran Pct Auto 0.4 % (0.0-0.4); Lymphocytes Absolute Auto 1.9 X10*3/uL (1.2-4.9); Mean Corpuscular HGB Conc 33.5 g/dl (31.0-35.0); Mean Corpuscular Hemoglobin 30.8 pg (27.0-33.0); Mean Corpuscular Volume 91.9 fL (80.0-98.0); Monocytes Absolute Auto 0.6 X10*3/uL (0.1-1.2); Monocytes Percent Auto 7.3 % (2-11); Neutrophils Absolute Auto 5.8 x10*3/uL (2.0-8.3); Neutrophils Percent Auto 68.4 % (45-73); Platelet Count 217 X10*3/uL (160-400); Red Blood Count 4.06 X10*6/uL (4.20-5.50); Red Cell Distribution Width 12.6 % (11.0-16.0); White Blood Count 8.5 X10*3/uL (4.8-10.8)
[2024-09-09 11:28] LABS: Alanine Aminotransferase 21 U/L (0-31); Albumin Level 4.1 g/dL (3.5-5.0); Alkaline Phosphatase 67 U/L (39-117); Anion Gap 9 (12-20); Aspartate Amino Transferase 24 U/L (5-31); Bilirubin Direct 0.2 mg/dL (0.0-0.5); Bilirubin Total 0.5 mg/dL (0.0-1.0); Blood Urea Nitrogen 15 mg/dL (9-16); Calcium 8.5 mg/dL (8.4-10.2); Carbon Dioxide 30 mmol/L (22-29); Chloride 105 mmol/L (96-108); Cholesterol 180 mg/dL (<200); Creatinine Clr Calc Pharmacy 73.6; Estimated Glomerular Filt Rate > 60; Glucose Random 81 mg/dL (60-115); HDL Cholesterol 97 mg/dL (>40); LDL Cholesterol Calculated 53 mg/dL (<100); Magnesium 2.2 mg/dL (1.6-2.6); Potassium 4.3 mmol/L (3.3-5.1); Sodium 140 mmol/L (135-145); Total Protein 6.6 g/dL (6.5-8.0); Triglycerides 154 mg/dL (<150)
[2024-09-09 11:29] LABS: Prothrombin Time 11.2 SEC (10.9-12.4)
[2024-09-09 11:32] LABS: Partial Thromboplastin Time 31.5 SEC (26.0-36.8)
--- NOTE | 2024-09-09 11:33 | PC.NURSE ---
MRI screening form completed and faxed to MRI at this time.
[2024-09-09 11:38] LABS: Troponin-I High Sensitivity < 2.7 ng/L (<3.5-17.0)
[2024-09-09] MEDS: Midazolam HCl 2 MG/2 ML VIAL IVPUSH (11:40)
--- NOTE | 2024-09-09 11:41 | PC.NURSE ---
Pt. to MRI at this time - accompanied by HUSAM Rene
[2024-09-09 11:44] LABS: Stroke Lab Use COMPLETE
--- NOTE | 2024-09-09 14:26 | MHC.STROKE ---
Met with patient and family JAMILA in room 13. Pt sleeping, easily arousable to verbal stimuli. Pt oriented x 4. Pt c/o not feeling well for the past 2 days, reports SOB. States that she felt nauseated this am and vomited x 1. States I have no energy c/o feeling lightheaded and weak this morning Pt reports that she went to bed around 2230 yesterday and other than the SOB she's had for the past 2 days felt ok. She woke at 0700 today and then around 0920 c/o the weakness, dizziness, and felt like she had marbles in her mouth When I saw her in the ED she reported that she felt a little better however did complain of some mild tingling in her right ring and pinky fingers. CTH, CTA H/N, and MRI all negative. Passed swallow screen without incident Stroke education reviewed with patient and her family member. Risk factors (diet, med hx, medications) reviewed. Stroke pamphlet provided. All questions answered. Plan is for admission to the hospital. Will continue to assist as needed.
[2024-09-09] MEDS: Albuterol Sulfate (0.083%) 2.5 MG/3 ML VIAL.NEB INHALE (14:30)
--- NOTE | 2024-09-09 15:37 | P.HPHOSP_ITS ---
History of Present Illness Date of Service: 09/09/24 Chief Complaint: slurred speech, weakness A 59 years old lady with PMH of COPD on 2L, HTN, HLD, Hx TIA who presents to the hospital with generalized weakness, slurred speech and lightheadedness. The patient reports feeling sick for the last few days with worsening SOB and dyspnea. She has not been using her oxygen all the time. felt sick to her stomach with nausea and reported diarrhea 2 days ago with decrease PO intake and feeling generally unwell. This morning she felt weak while on the phone talking to her daughter and reported speech problem with dysarthria but she was able to walk to open the door feeling lightheaded and weak overall with no reported syncope, near syncope, chest pain, palpitations, vomiting, or urinary symptoms. No fever or chills today. still having wheezing. In ED found to have normal O2 sat on RA with wheezing, received treatment. CXR suggestive of bronchial disease. CT, CTA and MR brain all negative for acute stroke. Will admit for observation. Review of Systems 2 Review of Systems: No fever, chills but has generalized weakness No chest pain, palpitation reporting shortness of breath or coughing No abdominal pain, but has nausea No urinary symptoms No any rash or wounds PMFSH Medical History HTN (hypertension) COPD (chronic obstructive pulmonary disease) Social History Household Members: Significant Other Household Members Other:: DAUGHTER [facility] Do you presently have visiting nurse or other home services: No Alcohol intake: current Alcohol type: beer Patient Tobacco Use Status: Current everyday Tobacco user Tobacco use type: Cigarette Cigarette Packs Per Day: 1 Cigarettes Per Day: 10 Years Smoked: 40 Smoked in Last 30 Days: Yes Second Hand Smoke Exposure: No Use of substances other than those prescribed or required for medical reasons: No Advance Directives: No Advance Directives Information Provided: Yes Do you have a plan to hurt others: No Plan service: No Current occupational status: employed Meds Allergies Allergy/AdvReac Type Severity Reaction Status Date / Time No Known Allergies Allergy Verified 09/09/24 10:49 Home Medications ?Medication ?Instructions ?Recorded ?Confirmed ?Last Taken ?Type citalopram 40 mg tablet 1 tab PO DAILY 10/01/21 10/26/21 Unknown History losartan 100 mg tablet 100 mg PO DAILY 10/26/21 10/26/21 Unknown History albuterol sulfate 2.5 mg/3 mL mg inhalation 09/09/24 Unknown History (0.083 %) solution for nebulization albuterol sulfate 90 mcg/actuation 2 inh inhalation QID PRN shortness 09/09/24 Unknown History aerosol inhaler of breath or wheezing atorvastatin 10 mg tablet 10 mg PO DAILY 09/09/24 Unknown History fluticasone fur. 100 mcg-umeclid 1 ea inhalation DAILY 09/09/24 Unknown History 62.5 mcg-vilant 25 mcg inhalat.powder (Trelegy Ellipta) varenicline 1 mg tablet 1 mg PO BID 09/09/24 Unknown History Physical Exam 2 Vital Signs and Narrative: Vital Signs: Last Vital Signs Temp 97.9 F 09/09/24 10:46 Pulse 62 09/09/24 14:27 Resp 15 09/09/24 14:27 BP 141/79 H 09/09/24 11:23 Pulse Ox 97 09/09/24 11:23 O2 Del Method Room Air 09/09/24 11:23 BMI result Body Mass Index 26.2 Const: Other: Constitutional : Awake, interactive, not in distress Neck : Normal inspection, Supple Cardiovascular : RRR, no JVP, no lower extremity edema Respiratory : decreased bilateral air entry, no crackles, bilateral exp wheezing Gastrointestinal: soft, lax, Normal bowel sounds, Non tender Skin : Warm, Dry Neurological : Alert & oriented x3, No focal deficit , CN 2-12 within normal Results Labs 09/09/24 11:01 09/09/24 11:01 Labs: Laboratory Results - last 24 hr 09/09/24 09/09/24 11:01 11:02 MCV 91.9 MCH 30.8 MCHC 33.5 RDW 12.6 Plt Count 217 MPV 9.0 L Immature Gran % (Auto) 0.4 Neut % (Auto) 68.4 Lymph % (Auto) 22.0 [place] % (Auto) 7.3 Eos % (Auto) 1.4 Baso % (Auto) 0.5 Lymph # (Auto) 1.9 [place] # (Auto) 0.6 Eos # (Auto) 0.1 Baso # (Auto) 0.0 Abs Immat Gran (auto) 0.03 Absolute Neuts (auto) 5.8 Absolute Nucleated RBC 0.000 Nucleated RBC % (auto) 0.0 Hold Purple Top SEE NOTE PT 11.2 Whole Blood PT 11.8 INR 1.0 Whole Blood INR 1.0 APTT 31.5 Anion Gap 9 L Estim Creat Clear Calc 73.6 Estimated GFR > 60 POC Glucose 86 Random Glucose 81 Calcium 8.5 Magnesium 2.2 Total Bilirubin 0.5 Direct Bilirubin 0.2 AST 24 ALT 21 Alkaline Phosphatase 67 Troponin I High Sens < 2.7 Total Protein 6.6 Albumin 4.1 Triglycerides 154 H Cholesterol 180 LDL Cholesterol, Calc 53 HDL Cholesterol 97 Imaging Radiologist's Impressions: Impressions Head CT 09/09/24 10:51 IMPRESSION: No acute intracranial process seen. This critical result was discussed with Natalie Winters at 11:15 AM on 09/09/2024. It was ascertained that the content and urgency of the report was understood at the time of direct communication. Electronically signed by: Daniel Henderson MD 09/09/2024 11:20 AM EST RP Head/Neck CTA 09/09/24 11:01 IMPRESSION: No main cerebral artery occlusion or embolus. No dissection, vessels of the neck. Calcified plaque left ICA representing 50% stenosis. 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 If patient's symptoms persist recommend non-IV contrast MRI brain. This critical test result is communicated to: Physician senior court office assistant, Natalie Winters at 11:20 AM Electronically signed by: Dionte Zhou MD 09/09/2024 11:37 AM EST RP Chest X-Ray 09/09/24 11:32 IMPRESSION: Mild interstitial edema in the correct clinical settings. Chronic interstitial lung disease. Scoliosis, upper thoracic spine. Electronically signed by: Dionte Zhou MD 09/09/2024 11:47 AM EST RP Brain MRI 09/09/24 12:00 IMPRESSION: 1. No evidence of acute intracranial hemorrhage, acute infarction, mass effect, or edema. Electronically signed by: Charly Barajas MD 09/09/2024 01:40 PM EST RP Assessment and Plan (1) COPD exacerbation: Status: Acute (2) Generalized weakness: Status: Acute Plan A 59 years old lady with PMH of COPD on 2L, HTN, HLD, Hx TIA who presents to the hospital with generalized weakness, slurred speech and lightheadedness. Generalized weakness, slurred speech Stroke ruled out with negative CT, CTA and MR brain could be viral illness, check viral panel give IVF physical therapy monitor on Tele COPD Exacerbation Duonebs and Albuterol Steroids IV cough medication HTN, HLD ASA, Statin and Losartan Mood disorder Citalopram, Varenicline DVT PPx Lovenox Quality Stroke Does the patient have a stroke diagnosis?: No VTE Prior VTE?: No VTE Risk Level:: Medical - moderate - high VTE Device Contraindication: Treatment Not Indicated VTE Drug Contraindication: N/A - Med Ordered
--- NOTE | 2024-09-09 16:07 | PHA.MEDREC ---
Addendum entered by Mehran Obando 09/09/24 16:37: reviewed Original Note: Pharmacy Consult ? Medication Reconciliation Pharmacy has completed the medication reconciliation. Spoke with patient and she confirmed her medications. She confirmed she takes her Atorvastatin 10mg tab along with her Citalopram 40mg tab daily @1330. She confirmed she finished her Prednisone 20mg regimen a few weeks ago . She confirmed she just started taking the Varenicline 1mg tab yesterday and confirmed she is taking it twice a day. She confirmed she took her her morning and afternoon medications today.
--- NOTE | 2024-09-09 16:07 | PC.NURSE ---
Awaiting meds to be verified per pharmacy
[2024-09-09] MEDS: methylPREDNISolone Sod Succ 125 MG/2 ML VIAL IVPUSH (16:43)
[2024-09-09] MEDS: guaiFENesin LA 600 MG TAB.ER.12H PO ×2 (16:43→21:21)
[2024-09-09] MEDS: Enoxaparin Sodium 40 MG/0.4 ML SYRINGE SUBCUT (16:43)
[2024-09-09] MEDS: Lactated Ringers 1,000 ML 100 ML IVCONT (16:44)
[2024-09-09] MEDS: 0.9 % Sodium Chloride Flush 3 ML SYRINGE IVFLUSH ×2 (16:49→21:22)
--- NOTE | 2024-09-09 20:08 | PC.NURSE ---
pt ambulated with steady gait to and from bathroom,no apparent distress, no acute pain or complaints
[2024-09-09] MEDS: Albuterol/Iprat 2.5/0.5MG 3 ML AMPUL.NEB INHALE (20:21)
[2024-09-10] VITALS: BP 123/69; PULSE 67; RESP 20; TEMP 36.4; O2SAT 95
[2024-09-10 04:00] VITALS: BP 109/70; PULSE 66; RESP 20; TEMP 36.2; O2SAT 96
[2024-09-10] MEDS: Lactated Ringers 1,000 ML 100 ML IVCONT (06:09)
[2024-09-10 07:03] VITALS: BP 122/66; PULSE 64; RESP 14; TEMP 36.4; O2SAT 95
[2024-09-10 07:06] LABS: Anion Gap 10 (12-20); Blood Urea Nitrogen 11 mg/dL (9-16); Calcium 8.4 mg/dL (8.4-10.2); Carbon Dioxide 25 mmol/L (22-29); Chloride 108 mmol/L (96-108); Creatinine Clr Calc Pharmacy 83.4; Estimated Glomerular Filt Rate > 60; Glucose Random 142 mg/dL (60-115); Potassium 4.1 mmol/L (3.3-5.1); Sodium 139 mmol/L (135-145)
[2024-09-10 07:16] VITALS: PULSE 64; RESP 14; O2SAT 94
[2024-09-10] MEDS: Albuterol/Iprat 2.5/0.5MG 3 ML AMPUL.NEB INHALE (07:16)
[2024-09-10] MEDS: Aspirin Enteric Coated 81 MG TABLET.DR PO (07:42)
[2024-09-10] MEDS: guaiFENesin LA 600 MG TAB.ER.12H PO (07:42)
[2024-09-10] MEDS: Losartan Potassium 50 MG TABLET 100 MG PO (07:42)
[2024-09-10] MEDS: predniSONE 20 MG TABLET 40 MG PO (07:42)
--- NOTE | 2024-09-10 08:29 | MHC.CM.PN ---
GUTIERRES 09/10/23, EMR REVIEWED, PT W/WEAKNESS COPD EXAC, CM MET W/PT WHO REPORTS SHE LIVES W/S.O., IS INDEP W/CARE AND HAS HOME O2 PRN AND A2L AT NIGHT, NO HOME SERVICES, PT'S GOAL FOR DC IS HOME. PCP ON FILE VERIFIED AND PT EDUCATED ON AND DECLINED TO COMPLETE A HCP.
--- NOTE | 2024-09-10 10:45 | PM.DS ---
DS: Providers Provider Date of Service: 09/10/24 Date of admission: 09/09/24 15:44 Date of discharge: 09/10/24 Primary care physician: Cinthia Anderson MD DS: Diagnosis Discharge Diagnosis (1) COPD exacerbation: Status: Acute (2) Generalized weakness: Status: Acute DS: Summary Hospital Course Hospital Course: Admission note HPI A 59 years old lady with PMH of COPD on 2L, HTN, HLD, Hx TIA who presents to the hospital with generalized weakness, slurred speech and lightheadedness. The patient reports feeling sick for the last few days with worsening SOB and dyspnea. She has not been using her oxygen all the time. felt sick to her stomach with nausea and reported diarrhea 2 days ago with decrease PO intake and feeling generally unwell. This morning she felt weak while on the phone talking to her daughter and reported speech problem with dysarthria but she was able to walk to open the door feeling lightheaded and weak overall with no reported syncope, near syncope, chest pain, palpitations, vomiting, or urinary symptoms. No fever or chills today. still having wheezing. In ED found to have normal O2 sat on RA with wheezing, received treatment. CXR suggestive of bronchial disease. CT, CTA and MR brain all negative for acute stroke. Will admit for observation. Hospital course The patient was admitted for evaluation of Generalized weakness and slurred speech. Stroke ruled out with negative CT, CTA and MR brain. could be viral illness, pending viral panel. Treated with IVF as she was noted to be dehydrated and was evaluated by physical therapy who did not think she need any therapy at this time. monitored on Tele with no abnormal rhythm. She was also treated for COPD Exacerbation with Duonebs and Albuterol along with Steroids IV and cough medication with good response. she was able to ambulate with no reported dyspnea or SOB. she is on 2L PRN at home. Discharge plan Take Prednisone taper dose as prescribed Use home nebulizer 3-4 times a day for now increase physical activity as tolerated Time Attestation Discharge Coordination Time (in mins): 27 Quality: Safe Use of Opioids Does Pt have an Active Cancer Diagnosis on the Problem List?: No Quality: Stroke Does the patient have a stroke diagnosis?: No Physical Exam Vital Signs: Vital Signs: Last Vital Signs Temp 97.5 F 09/10/24 07:03 Pulse 64 09/10/24 07:16 Resp 14 09/10/24 07:16 BP 122/66 09/10/24 07:03 Pulse Ox 95 09/10/24 07:03 O2 Del Method Nasal Cannula 09/10/24 07:03 O2 Flow Rate 2 09/10/24 07:03 BMI result Body Mass Index 24.7 Const: Other: Constitutional : Awake, interactive, not in distress Neck : Normal inspection, Supple Cardiovascular : RRR, no JVP, no lower extremity edema Respiratory : good bilateral air entry, no crackles, wheezes or rhonchi Gastrointestinal: soft, lax, Normal bowel sounds, Non tender Skin : Warm, Dry Neurological : Alert & oriented x3, No focal deficit , CN 2-12 within normal DS: Data Data Completed and Pending Completed studies during hospitalization [Text1]: Procedures Introduction of Other Thrombolytic into Peripheral Vein, Percutaneous Approach (10/01/21) Labs on day of discharge: Laboratory Results - last 24 hr 09/09/24 09/09/24 09/10/24 11:01 11:02 06:30 WBC 8.5 RBC 4.06 L Hgb 12.5 Hct 37.3 MCV 91.9 MCH 30.8 MCHC 33.5 RDW 12.6 Plt Count 217 MPV 9.0 L Immature Gran % (Auto) 0.4 Neut % (Auto) 68.4 Lymph % (Auto) 22.0 [place] % (Auto) 7.3 Eos % (Auto) 1.4 Baso % (Auto) 0.5 Lymph # (Auto) 1.9 [place] # (Auto) 0.6 Eos # (Auto) 0.1 Baso # (Auto) 0.0 Abs Immat Gran (auto) 0.03 Absolute Neuts (auto) 5.8 Absolute Nucleated RBC 0.000 Nucleated RBC % (auto) 0.0 Hold Purple Top SEE NOTE SEE NOTE PT 11.2 Whole Blood PT 11.8 INR 1.0 Whole Blood INR 1.0 APTT 31.5 Sodium 140 139 Potassium 4.3 4.1 Chloride 105 108 Carbon Dioxide 30 H 25 Anion Gap 9 L 10 L BUN 15 11 Creatinine 0.71 0.61 Estim Creat Clear Calc 73.6 83.4 Estimated GFR > 60 > 60 POC Glucose 86 Random Glucose 81 142 H Calcium 8.5 8.4 Magnesium 2.2 Total Bilirubin 0.5 Direct Bilirubin 0.2 AST 24 ALT 21 Alkaline Phosphatase 67 Troponin I High Sens < 2.7 Total Protein 6.6 Albumin 4.1 Triglycerides 154 H Cholesterol 180 LDL Cholesterol, Calc 53 HDL Cholesterol 97 Imaging MRI - head: Radiologist's impression: ITS Impressions Head CT 09/09/24 10:51 IMPRESSION: No acute intracranial process seen. This critical result was discussed with Natalie Winters at 11:15 AM on 09/09/2024. It was ascertained that the content and urgency of the report was understood at the time of direct communication. Electronically signed by: Daniel Henderson MD 09/09/2024 11:20 AM EST RP Head/Neck CTA 09/09/24 11:01 IMPRESSION: No main cerebral artery occlusion or embolus. No dissection, vessels of the neck. Calcified plaque left ICA representing 50% stenosis. 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 If patient's symptoms persist recommend non-IV contrast MRI brain. This critical test result is communicated to: Physician respiratory therapist assistant, Natalie Winters at 11:20 AM Electronically signed by: Dionte Zhou MD 09/09/2024 11:37 AM EST RP Chest X-Ray 09/09/24 11:32 IMPRESSION: Mild interstitial edema in the correct clinical settings. Chronic interstitial lung disease. Scoliosis, upper thoracic spine. Electronically signed by: Dionte Zhou MD 09/09/2024 11:47 AM EST RP Brain MRI 09/09/24 12:00 IMPRESSION: 1. No evidence of acute intracranial hemorrhage, acute infarction, mass effect, or edema. Electronically signed by: Charly Barajas MD 09/09/2024 01:40 PM EST RP Discharge Plan Discharge Anticipated Discharge Date/Time: 09/10/24 10:30 Patient Disposition: Home, Self-Care Discharge Diagnosis: COPD exacerbation Referrals: Cinthia Anderson MD [Primary Care Provider] - 1 Week Discharge Medications: New guaifenesin [Mucinex] 600 mg Tablet Extended Release 12hr 600 mg PO BID Qty: 20 0RF prednisone 10 mg tablet See Taper PO DIRECTED Qty: 30 0RF Taper: Prednisone 40 mg daily for 3 Days and 0 Hour 30 mg daily for 3 Days and 0 Hour 20 mg daily for 3 Days and 0 Hour 10 mg daily for 3 Days and 0 Hour Rx Instructions: see taper instructions Continued citalopram 40 mg tablet 1 tab PO DAILY@1330 aspirin 81 mg Tablet,Delayed Release (Dr/Ec) 81 mg PO DAILY Qty: 30 0RF atorvastatin 10 mg tablet 10 mg PO DAILY@1330 varenicline 1 mg tablet 1 mg PO BID Trelegy Ellipta 100-62.5-25 mcg blister with device 1 ea inhalation DAILY albuterol sulfate 2.5 mg /3 mL (0.083 %) solution for nebulization 2.5 mg inhalation Q6H PRN (Reason: Shortness Of Breath Or Wheezing) albuterol sulfate 90 mcg/actuation HFA aerosol inhaler 2 inh inhalation QID PRN (Reason: shortness of breath or wheezing) losartan 100 mg tablet 100 mg PO DAILY Discharge Orders: Discharge Order (Routine); Ordered 09/10/24 Ordered By: Karen Sanchez Diet: Advance to usual diet Activity on Discharge: As tolerated Stand Alone Forms: Patient Portal Discharge page Print Language: Korean Care Plan Goals: You presented with difficulties speaking and generalized weakness. CT, CTA and MRI head were negative for any acute findings. Take Prednisone taper dose as prescribed Use home nebulizer 3-4 times a day for now increase physical activity as tolerated Health Concerns: COPD exacerbation Plan of Treatment: Prendnisone taper Nebulizer Assessment: as above
[2024-09-10 11:05] LABS: Adenovirus PCR Not Detected (Not Detect.); Bordetella parapertussis PCR Not Detected (Not Detect.); Bordetella pertussis PCR Not Detected (Not Detect.); Chlamydia pneumoniae PCR Not Detected (Not Detect.); Coronavirus 229E PCR Not Detected (Not Detect.); Coronavirus HKU1 PCR Not Detected (Not Detect.); Coronavirus NL63 PCR Not Detected (Not Detect.); Coronavirus OC43 PCR Not Detected (Not Detect.); Human metapneumovirus PCR Not Detected (Not Detect.); Influenza A PCR Not Detected (Not Detect.); Influenza B PCR Not Detected (Not Detect.); Mycoplasma pneumoniae PCR Not Detected (Not Detect.); Parainfluenza 1 PCR Not Detected (Not Detect.); Parainfluenza 2 PCR Not Detected (Not Detect.); Parainfluenza 3 PCR Not Detected (Not Detect.); Parainfluenza 4 PCR Not Detected (Not Detect.); RSV PCR Not Detected (Not Detect.); Rhino/Enterovirus PCR Not Detected (Not Detect.)
--- NOTE | 2024-09-10 11:28 | MHC.CM.PN ---
pt medically cleared for dc home w/resump of home o2, pt will arrange trasnport.
[2024-09-10 12:41] LABS: SARS-CoV-2 PCR Not Detected (Not Detect.)
== END 2024-09-10 11:36 | disposition home or self-care (01) ==
LOC: HO.ED 14:04 → HO.EDOVER 15:54 → HO.IMC 19:23
PROVIDERS: Physician Assistant; Admitting Provider Student in an Organized Health Care Education/Training Program; Emergency Provider Emergency Medicine; PCP Internal Medicine Endocrinology, Diabetes & Metabolism; Visit Provider Student in an Organized Health Care Education/Training Program
DX: J44.1 Chronic obstructive pulmonary disease with (acute) exacerbation (principal); R53.1 Weakness; R42 Dizziness and giddiness; R47.81 Slurred speech; R47.1 Dysarthria and anarthria; R26.81 Unsteadiness on feet; R06.02 Shortness of breath; R19.7 Diarrhea, unspecified; R11.0 Nausea; E86.0 Dehydration; E78.5 Hyperlipidemia, unspecified; Z99.81 Dependence on supplemental oxygen; Z79.899 Other long term (current) drug therapy
CPT/HCPCS: 36415; 70450; 70496; 70498; 70551; 71045; 80048; 80061; 80076; 82947; 83735; 84484; 85025; 85610; 85730; 87633; 93005; 94640; 96361; 96372; 96374; 96375; 97161; 99222; 99285; J1650; J2250; J2919; J7120; Q9967

== ENCOUNTER → 2024-09-09 10:51 | Outpatient (BNV) | payer OTHER, SELFPAY | PROVIDERS: Admitting Provider Student in an Organized Health Care Education/Training Program; Emergency Provider Emergency Medicine; PCP Internal Medicine Endocrinology, Diabetes & Metabolism; Visit Provider Internal Medicine Cardiovascular Disease | DX: I63.9 Cerebral infarction, unspecified (principal) | CPT/HCPCS: 93010 ==

== ENCOUNTER → 2024-09-09 15:44 | Outpatient (BNV) | payer OTHER, SELFPAY | PROVIDERS: Admitting Provider Student in an Organized Health Care Education/Training Program; Emergency Provider Emergency Medicine; PCP Internal Medicine Endocrinology, Diabetes & Metabolism; Visit Provider Student in an Organized Health Care Education/Training Program | DX: J44.1 Chronic obstructive pulmonary disease with (acute) exacerbation (principal); R53.1 Weakness | CPT/HCPCS: 99222; 99238 ==

== ENCOUNTER 2024-11-15 12:15 | Inpatient (IN) | payer OTHER, SELFPAY ==
--- NOTE | ~2024-11-15 | XR_ITS ---
EXAMINATION: XR CHEST 1 VIEW HISTORY: pneumonia/pleural effusion COMPARISON: Comparison is made with the prior examination dated 09/09/2024. Correlation is also made with a chest CT dated 11/15/2024. FINDINGS: A single AP portable view of the chest performed at 10:06 AM is submitted. Again seen is airspace opacity in the right lower lobe consistent with pneumonia. The left lung is clear. There is a probable tiny right pleural effusion. There is no pneumothorax or pulmonary vascular congestion. The heart is normal in size. The bones are intact. XR/XR chest 1V IMPRESSION: Persistent right lower lobe pneumonia. Continued follow-up is recommended to document resolution. Electronically signed by: Ab Arauz MD 11/18/2024 10:29 AM EDT
--- NOTE | ~2024-11-15 | CT_ITS ---
EXAMINATION: CT ANGIOGRAM CHEST CLINICAL INFORMATION: Right-sided chest pain. Shortness of breath. Hypoxia. COMPARISON: None available. TECHNIQUE: Multiple axial images were obtained through the chest after the administration of 50 mL of Omnipaque 350 intravenous contrast. Extensive vascular post-processing including two-dimensional and three-dimensional reformatted images were created and reviewed on an independent workstation. This CT examination was performed using dose optimization techniques as appropriate, variously including the following: *Automated exposure control *Adjustment of mA and/or kV according to patient size (this includes techniques or standardized protocols for targeted exams where dose is matched to indication/reason for exam; i.e. extremities or head) *Use of iterative reconstruction technique DLP: 315 mGy centimeter. FINDINGS: The main portal vein and its branches demonstrated normal patency and enhancement pattern without intraluminal filling defects. No aneurysm or dissection, thoracic aorta. Pulmonary mosaic pattern. Patchy and confluent high attenuation seen in the right lower lung lobe and right middle lung lobe and to a lesser extent left lung bases and lingula. Centrilobular and paraseptal emphysematous changes both lungs. Bilateral pleural effusions, right greater than the left side with small to moderate volume. Soft tissue fullness in the subcarinal region. No gross lymphadenopathy in the perihilar region. No pericardial effusion. No pneumothorax. No pneumomediastinum. Calcified plaques in the coronary arteries. There is an S-shaped curvature of the cervical thoracic spine. Multilevel spondylosis without acute fracture or gross listhesis. CT/CT angio chest PE protocol IMPRESSION: No acute pulmonary artery emboli. Multifocal pneumonia involving mostly the right lung. Moderate volume right-sided pleural effusion. Scoliosis, cervical thoracic spine. Fleischner guidelines were followed. Electronically signed by: Dionte Zhou MD 11/15/2024 03:32 PM EDT
--- NOTE | 2024-11-15 12:33 | ED_ITS ---
HPI - SOB/Dyspnea General Chief Complaint: General Medical Stated Complaint: SOB, R side pain Time Seen by Provider: 11/15/24 12:55 Source: patient and family (patient's ) Mode of arrival: ambulatory Limitations: no limitations History of Present Illness ED Provider: Yusra Cardenas PA-C HPI Narrative: Patient is a 59 year old assigned female at with a history of COPD on oxygen at night and with exertion, HTN, and TIA presenting to the emergency department today with right sided rib pain. Patient states that over the last 3 days she has had right sided rib pain that is worse with laying on that side and does not relieve with positioning. Patient denies any dizziness, lightheadedness, abdominal pain, nausea, vomiting, fever, chills, blurry vision, double vision, loss of vision, difficulty breathing, shortness of breath, back pain, night sweats, pain with urination, increased urinary frequency, increased urinary urgency, blood in her urine or stool, syncope or a near syncopal episode, recent trauma or falls, bowel incontinence, bladder incontinence, or any other complaints at this time. Related Data Home Medications ?Medication ?Instructions ?Recorded ?Confirmed citalopram 40 mg tablet 40 mg PO DAILY@1330 10/01/21 11/15/24 losartan 100 mg tablet 100 mg PO DAILY 10/26/21 11/15/24 albuterol sulfate 2.5 mg/3 mL 2.5 mg inhalation Q6H PRN 09/09/24 11/15/24 (0.083 %) solution for nebulization Shortness Of Breath Or Wheezing albuterol sulfate 90 mcg/actuation 2 inh inhalation QID PRN shortness 09/09/24 11/15/24 aerosol inhaler of breath or wheezing atorvastatin 10 mg tablet 10 mg PO DAILY@1330 09/09/24 11/15/24 fluticasone fur. 100 mcg-umeclid 1 ea inhalation DAILY 09/09/24 11/15/24 62.5 mcg-vilant 25 mcg inhalat.powder (Trelegy Ellipta) cholecalciferol (vitamin D3) 50 50 mcg PO DAILY 11/15/24 11/15/24 mcg (2,000 unit) capsule (Vitamin D3) guaifenesin 600 mg tablet, 600 mg PO BID PRN Congestion 11/15/24 11/15/24 extended release 12 hr (Mucinex) multivitamin 1 tab PO DAILY 11/15/24 11/15/24 Previous Rx's ?Medication ?Instructions ?Recorded aspirin 81 mg tablet,delayed 81 mg PO DAILY #30 tabs 10/03/21 release Allergies Allergy/AdvReac Type Severity Reaction Status Date / Time No Known Allergies Allergy Verified 11/15/24 12:38 Review of Systems 2 Constitutional: Constitutional: Reports no additional constitutional complaints, Denies chills, Denies fever(s) and Denies night sweats Eyes: Eyes: Reports no additional eye complaints, Denies blurry vision, Denies change in vision, Denies diplopia, Denies eye discharge, Denies loss of vision and Denies eye pain ENT: Denies dizziness Cardiovascular: Cardiovascular: Reports no additional cardiovascular complaints, Reports chest pain (right sided), Denies lightheadedness, Denies Loss of Consciousness and Denies dyspnea Respiratory: Respiratory: Reports no additional respiratory complaints and Denies dyspnea Gastrointestinal: Gastrointestinal: Reports no additional gastrointestinal complaints, Denies abdominal pain, Denies melena, Denies hematochezia, Denies change in bowel habits and Denies change in stool character Genitourinary: Genitourinary: Denies hematuria, Denies urinary frequency, Denies dysuria, Denies urinary incontinence, Denies urinary hesitancy and Denies urinary urgency Musculoskeletal: Musculoskeletal: Reports no additional musculoskeletal complaints, Denies numbness and Denies tingling Neurologic: Denies dizziness, Denies loss of vision, Denies numbness and Denies tingling Psychiatric: Psychiatric: Reports no additional psychiatric complaints Endocrine: Endocrine: Reports no additional endocrine complaints Hematologic/Lymphatic: Hematologic/Lymphatic: Reports no additional hematologic/lymphatic complaints Allergic/Immunologic: Allergic/Immunologic: Reports no additional allergic/immunologic complaints [facility] Past Medical History Attestation statement: The following information was validated with the patient. (all information validated with the patient's ) Source: old records reviewed, obtained from family (patient's provided additional history and confirmed the history provided by the patient. ) and nursing notes reviewed Medical History HTN (hypertension) COPD (chronic obstructive pulmonary disease) Social History Social History Household Members: Spouse Household Members Other:: DAUGHTER Housing: Condominium Do you presently have visiting nurse or other home services: No Alcohol intake: current Alcohol intake frequency: holidays/special occasions only Alcohol type: beer Patient Tobacco Use Status: Former Tobacco user Tobacco use type: Cigarette Cigarette Packs Per Day: 1 Cigarettes Per Day: 3 Years Smoked: 40 Smoked in Last 30 Days: No Second Hand Smoke Exposure: No Use of substances other than those prescribed or required for medical reasons: No Advance Directives: No Advance Directives Information Provided: No Do you have a plan to hurt others: No Plan Nutrition Risks: No Nutritional Risk Patient : No service: No Current occupational status: employed Physical Exam 2 Vital Signs: Vital Signs: Last Vital Signs Temp 98.2 F 11/15/24 18:11 Pulse 67 11/15/24 18:11 Resp 16 11/15/24 18:11 BP 103/60 11/15/24 18:11 Pulse Ox 95 11/15/24 18:11 O2 Del Method Room Air 11/15/24 18:11 BMI result Body Mass Index 24.6 Const: General: cooperative, no acute distress, alert and awake Nutritional Appearance: well nourished Orientation/consciousness: patient oriented x3 Limitations: no limitations HEENT: Head: Yes normal to inspection and Yes atraumatic Ears: hearing grossly normal bilaterally and external ears normal General nose exam: Normal external nose present, no nasal discharge noted and no epistaxis Face and sinus: Yes normal facial exam, No abrasion and No laceration Mouth: Normal oral and palatal mucosa present, no drooling and no muffled voice Eyes: General: appearance normal, both eyes and all related structures P eriorbital: periorbital findings normal Eyelids: Yes eyelids normal C onjunctivae: conjunctivae normal Pupils: Equal, round and reactive pupils present EOM: EOMs intact bilaterally Neck: Neck: Yes normal visual inspection, Yes full ROM and Yes no lymphadenopathy Chest: Chest palpation & inspection: normal inspection of the chest Resp: Effort & Inspection: normal respiratory effort and able to speak in complete sentences GI: Inspection: Yes normal to inspection Neuro: General: patient oriented x3, moves all extremities and CN's II-XI intact bilaterally Cranial nerves: Yes Equal, round and reactive pupils present Cognition (Neuro): normal cognition Extrem: General: Yes normal to inspection, Yes full ROM and Yes capillary refill normal Psych: Appearance: grossly normal Mental Status: mental status grossly normal Affect: normal affect Attitude: cooperative Thought process: N ormal thought process present Thought content: Normal thought content present Insight: Good insight present (Psych) Course Course Course Narrative: This is a Rapid Medical Exam performed in triage by Natalie Winters PA-C. Full HPI, ROS and PE to be performed by primary ED provider. 59 yo F w/pmhx COPD (wears 2L NC @night), HTN presenting to the ED c/o fatigue, prod cough, SOB worse on exertion, & right sided CP, worse with deep breathing & coughing x4 days. Admits has been using O2 24/ @ home the past few days & still feeling SOB. Denies pedal edema, abd pain PE: 84% on RA > 87% on 3L NC with standing to scale > 91% @ rest, diminished lung sounds throughout Plan: EKG, labs, CXR, SARs, ED bronch protocol Medications Administered Generic Name Dose Route Start Last Admin Trade Name Freq PRN Reason Stop Dose Admin Azithromycin 500 mg/ Sodium 250 mls @ 125 mls/hr 11/15/24 17:00 11/15/24 18:49 Chloride IV Not Given Q24H FREDA Discontinued Medications Generic Name Dose Route Start Last Admin Trade Name Freq PRN Reason Stop Dose Admin Acetaminophen 975 mg 11/15/24 14:35 11/15/24 15:05 Acetaminophen 325 Mg Tablet PO 11/15/24 14:36 975 mg ONCE ONE Administration Albuterol Sulfate 2.5 mg 11/15/24 13:01 11/15/24 13:05 Albuterol Sulfate (0.083%) 2.5 Mg/3 Ml Vial.Neb INHALE 11/15/24 13:02 2.5 mg ONCE ONE Administration Ceftriaxone Sodium 1 gm 11/15/24 15:23 11/15/24 17:21 Ceftriaxone Sodium 1 Gm Vial IVPUSH 11/15/24 15:24 1 gm ONCE ONE Administration Azithromycin 500 mg/ Sodium 250 mls @ 125 mls/hr 11/15/24 15:23 11/15/24 18:49 Chloride IV 11/15/24 17:22 Infused ONCE ONE Infusion Iohexol 100 ml 11/15/24 15:26 11/15/24 15:27 Iohexol 350 Mg/Ml 100 Ml Infus..Btl IV 11/15/24 15:27 65 ml ONCE ONE Administration Medical Decision Making Medical Decision Making [facility] Narrative: Patient is a 59 year old assigned female at with a history of COPD on oxygen at night and with exertion, HTN, and TIA presenting to the emergency department today with right sided rib pain. Patient's physical exam showed an initially hypoxic individual at 86% on RA but otherwise unremarkable. Patient was placed on 3 liters of oxygen which increased her saturation to 93%. Patient's blood work was unremarkable. Patient's EKG was unremarkable. Patient's CT PE study showed right sided multifocal pneumonia as well as a pleural effusion but no PE. I spoke to the hospitalist team who agreed to admission. Patient's clinical presentation is most consistent with pneumonia but not sepsis (@1556). Patient was given IV Azithromycin and ceftriaxone. I explained my physical exam findings as well as all test results to the patient and the patient's . I answered all questions asked by the patient and the patient's . Patient and the patient's verbalized agreement and understanding with this treatment plan and admission. Differential Diagnosis Differential Diagnoses: The differential diagnosis associated with the presentation includes Hypoxia Pneumonia COPD exacerbation Admission/Observation Consideration of admission/observation: Escalation of care including admission/observation considered Patient admitted as noted in the MDM Rationale portion of this note. Consult Healthcare Provider Management of the patient was discussed with: Hospitalist (agreed to admission as noted in the MDM Rationale portion of this note. ) Lab Data [facility] Lab Attestation statement: I reviewed the patient's lab results. My interpretation of these results are in the MDM Rationale portion of this note. 11/15/24 13:14 11/15/24 13:14 Labs: Lab Results 11/15/24 Range/Units 13:14 WBC 8.4 (4.8-10.8) X10*3/uL RBC 3.43 L (4.20-5.50) X10*6/uL Hgb 10.6 L (12.0-16.0) g/dl Hct 30.8 L (37.0-47.0) % MCV 89.8 (80.0-98.0) fL MCH 30.9 (27.0-33.0) pg MCHC 34.4 (31.0-35.0) g/dl RDW 13.5 (11.0-16.0) % Plt Count 282 D (160-400) X10*3/uL MPV 8.6 L (9.4-12.3) fL Immature Gran % (Auto) 0.5 H (0.0-0.4) % Neut % (Auto) 80.6 H (45-73) % Lymph % (Auto) 12.2 L (20-40) % Aiken % (Auto) 4.6 (2-11) % Eos % (Auto) 1.9 (0-4) % Baso % (Auto) 0.2 (0-2) % Lymph # (Auto) 1.0 L (1.2-4.9) X10*3/uL Aiken # (Auto) 0.4 (0.1-1.2) X10*3/uL Eos # (Auto) 0.2 (0.0-0.4) X10*3/uL Baso # (Auto) 0.0 (0.0-0.2) X10*3/uL Abs Immat Gran (auto) 0.04 H (0.00-0.03) X10*3/uL Absolute Neuts (auto) 6.8 (2.0-8.3) x10*3/uL Absolute Nucleated RBC 0.000 (0.0-0.012) X10*3/uL Nucleated RBC % (auto) 0.0 (0.0-0.2) /100WBC PT 12.4 (10.9-12.4) SEC INR 1.1 (0.9-1.1) Sodium 138 (135-145) mmol/L Potassium 4.0 (3.3-5.1) mmol/L Chloride 102 (96-108) mmol/L Carbon Dioxide 28 (22-29) mmol/L Anion Gap 12 (12-20) BUN 7 L (9-16) mg/dL Creatinine 0.59 (0.5-1.4) mg/dL Estim Creat Clear Calc 89.4 Estimated GFR > 60 Random Glucose 85 (60-115) mg/dL Calcium 8.9 (8.4-10.2) mg/dL Magnesium 2.0 (1.6-2.6) mg/dL Total Bilirubin 0.4 (0.0-1.0) mg/dL Direct Bilirubin 0.3 (0.0-0.5) mg/dL AST 20 (5-31) U/L ALT 14 (0-31) U/L Alkaline Phosphatase 87 (39-117) U/L Troponin I High Sens < 2.7 (<3.5-17.0) ng/L B-Natriuretic Peptide 19 (<100) pg/mL Total Protein 7.7 (6.5-8.0) g/dL Albumin 3.7 (3.5-5.0) g/dL Influenza Type A (PCR) NEGATIVE (Negative) Influenza Type B (PCR) NEGATIVE (Negative) RSV RNA Qual (PCR) NEGATIVE (Negative) SARS-CoV-2 RNA (RT-PCR) NEGATIVE (Negative) Independent Interpretation I performed an independent interpretation of an: EKG and CT Scan Interpretation: My interpretation is in agreement with the radiologist's impression of this imaging study. L Report Number: [id number]: Total DLP = 315.00 mGy-cm EXAMINATION: CT ANGIOGRAM CHEST CLINICAL INFORMATION: Right-sided chest pain. Shortness of breath. Hypoxia. COMPARISON: None available. TECHNIQUE: Multiple axial images were obtained through the chest after the administration of 50 mL of Omnipaque 350 intravenous contrast. Extensive vascular post-processing including two-dimensional and three- dimensional reformatted images were created and reviewed on an independent workstation. This CT examination was performed using dose optimization techniques as appropriate, variously including the following: *Automated exposure control *Adjustment of mA and/or kV according to patient size (this includes techniques or standardized protocols for targeted exams where dose is matched to indication/reason for exam; i.e. extremities or head) *Use of iterative reconstruction technique DLP: 315 mGy centimeter. FINDINGS: The main portal vein and its branches demonstrated normal patency and enhancement pattern without intraluminal filling defects. No aneurysm or dissection, thoracic aorta. Pulmonary mosaic pattern. Patchy and confluent high attenuation seen in the right lower lung lobe and right middle lung lobe and to a lesser extent left lung bases and lingula. Centrilobular and paraseptal emphysematous changes both lungs. Bilateral pleural effusions, right greater than the left side with small to moderate volume. Soft tissue fullness in the subcarinal region. No gross lymphadenopathy in the perihilar region. No pericardial effusion. No pneumothorax. No pneumomediastinum. Calcified plaques in the coronary arteries. There is an S-shaped curvature of the cervical thoracic spine. Multilevel spondylosis without acute fracture or gross listhesis. CT/CT angio chest PE protocol IMPRESSION: No acute pulmonary artery emboli. Multifocal pneumonia involving mostly the right lung. Moderate volume right-sided pleural effusion. Scoliosis, cervical thoracic spine. Fleischner guidelines were followed. Electronically signed by: Dionte Zhou MD 11/15/2024 03:32 PM EDT Dictated By: Dionte Foote MD Signed By: Electronically signed by Dionte Vigil MD 11/15/24 1532 I independently interpreted this EKG and am in agreement with the below findings: Vent. Rate: 82 BPM Atrial Rate: 82 BPM P-R Int: 140 ms QRS Dur: 74 ms QT Int: 386 ms P-R-T Axes: -4 -1 14 degrees QTcB Int: 450 ms Normal sinus rhythm Septal infarct, age undetermined When compared with ECG of 09-Sep-2024 11:18, Questionable change in QRS axis Non-specific change in ST segment in Inferior leads Referred By: Natalie Winters Electronically Signed By: Solis Castañeda Dictated By: Solis Castañeda MD Signed By: Electronically signed by Solis Castañeda MD 11/15/24 1734 Radiology Impression Discussion of test interpretation with radiology: I have reviewed the radiologist's reading. Independent Historian Clinical information obtained from an independent historian. History obtained from or confirmed by: Spouse (patient's provided additional history and confirmed the history provided by the patient) Critical Care Time Critical Care Time Critical Care Time: Yes Total Critical Care Time: 46 Attestation: I spent 46 minutes of Critical Care Time with this patient. This does not include time spent on separately reported billable procedures. Discharge Plan Discharge Clinical Impression: Pneumonia Patient Disposition: Admitted As Inpatient
[2024-11-15 12:34] VITALS: BP 127/71; PULSE 99; RESP 16; TEMP 37.3; O2SAT 86; BMI 24.6
--- NOTE | 2024-11-15 12:37 | ECG_ITS ---
Test Reason : dyspnea Blood Pressure : */* mmHG Vent. Rate : 82 BPM Atrial Rate : 82 BPM P-R Int : 140 ms QRS Dur : 74 ms QT Int : 386 ms P-R-T Axes : -4 -1 14 degrees QTcB Int : 450 ms Normal sinus rhythm Septal infarct , age undetermined Abnormal ECG When compared with ECG of 09-Sep-2024 11:18, Questionable change in QRS axis Non-specific change in ST segment in Inferior leads Referred By: Natalie Winters Electronically Signed By: Solis Castañeda
[2024-11-15 13:01] VITALS: PULSE 86; RESP 14; O2SAT 95
[2024-11-15] MEDS: Albuterol Sulfate (0.083%) 2.5 MG/3 ML VIAL.NEB INHALE (13:05)
[2024-11-15 13:27] LABS: MANUAL DIFF FLAG NO
[2024-11-15 13:28] LABS: Basophils Percent Auto 0.2 % (0-2); Eosinophils Absolute Auto 0.2 X10*3/uL (0.0-0.4); Eosinophils Percent Auto 1.9 % (0-4); Hematocrit 30.8 % (37.0-47.0); Hemoglobin 10.6 g/dl (12.0-16.0); Imm Gran Abs Auto 0.04 X10*3/uL (0.00-0.03); Imm Gran Pct Auto 0.5 % (0.0-0.4); Lymphocytes Percent Auto 12.2 % (20-40); Mean Corpuscular HGB Conc 34.4 g/dl (31.0-35.0); Mean Corpuscular Hemoglobin 30.9 pg (27.0-33.0); Mean Corpuscular Volume 89.8 fL (80.0-98.0); Mean Platelet Volume 8.6 fL (9.4-12.3); Monocytes Absolute Auto 0.4 X10*3/uL (0.1-1.2); Monocytes Percent Auto 4.6 % (2-11); Neutrophils Absolute Auto 6.8 x10*3/uL (2.0-8.3); Neutrophils Percent Auto 80.6 % (45-73); Platelet Count 282 X10*3/uL (160-400); Red Blood Count 3.43 X10*6/uL (4.20-5.50); Red Cell Distribution Width 13.5 % (11.0-16.0); White Blood Count 8.4 X10*3/uL (4.8-10.8)
[2024-11-15 13:36] LABS: INTERNATIONAL NORM RATIO 1.1 (0.9-1.1); Prothrombin Time 12.4 SEC (10.9-12.4)
[2024-11-15 13:51] LABS: Alanine Aminotransferase 14 U/L (0-31); Albumin Level 3.7 g/dL (3.5-5.0); Alkaline Phosphatase 87 U/L (39-117); Anion Gap 12 (12-20); Aspartate Amino Transferase 20 U/L (5-31); Bilirubin Direct 0.3 mg/dL (0.0-0.5); Bilirubin Total 0.4 mg/dL (0.0-1.0); Blood Urea Nitrogen 7 mg/dL (9-16); Calcium 8.9 mg/dL (8.4-10.2); Carbon Dioxide 28 mmol/L (22-29); Chloride 102 mmol/L (96-108); Creatinine Clr Calc Pharmacy 89.4; Estimated Glomerular Filt Rate > 60; Glucose Random 85 mg/dL (60-115); Sodium 138 mmol/L (135-145); Total Protein 7.7 g/dL (6.5-8.0)
[2024-11-15 13:54] LABS: B Type Natriuretic Peptide 19 pg/mL (<100)
[2024-11-15 13:58] LABS: Troponin-I High Sensitivity < 2.7 ng/L (<3.5-17.0)
[2024-11-15 14:05] LABS: Influenza A PCR NEGATIVE (Negative); Influenza B PCR NEGATIVE (Negative); Resp Syncy Virus RNA Qual PCR NEGATIVE (Negative); SARS COV2 PCR INHOUSE NEGATIVE (Negative)
[2024-11-15] MEDS: Acetaminophen 325 MG TABLET 975 MG PO (15:05)
[2024-11-15] MEDS: iohexoL 350 MG/ML 100 ML INFUS..BTL IV (15:27)
--- NOTE | 2024-11-15 16:31 | PHA.MEDREC ---
Addendum entered by Asif Cordero [facility] 11/15/24 16:39: med rec reviewed Original Note: Pharmacy Consult ? Medication Reconciliation Pharmacy has completed the medication reconciliation. Spoke to patient to confirm med list. Patient states she is no longer taking Prednisone taper and Varenicline tart 1 mg.
[2024-11-15] MEDS: Azithromycin 500 MG in 0.9 % Sodium Chloride 250 ML 125 MG IV (17:21)
[2024-11-15] MEDS: cefTRIAXone sodium 1 GM VIAL IVPUSH (17:21)
--- NOTE | 2024-11-15 17:41 | PM.IMHP ---
History of Present Illness Date of Service: 11/15/24 Attending physician on admission: Bryce Fisher Chief Complaint: pneumonia HPI:59y/o F with PMH of COPD on 2L, HTN, HLD, Hx TIA who presents to the hospital with right sided rib pain 3 days she has had right sided rib pain that is worse with laying on that side and does not relieve with positioning, in addition has dry cough. she says she had recent travel trip ?in after that she was diagnosed with lung infection by her PCP and was given antibiotics and steroids-after that she felt better. Denies any sick contact or fever or chills or nausea or vomiting. Seems generalized weak. Lab imaging reviewed: No leukocytosis, H&H 10.6/30.8, blood culture pending, EKG NSR. cta:No acute pulmonary artery emboli.Multifocal pneumonia involving mostly the right lung. Moderate volume right-sided pleural effusion. Review of Systems Review of Systems: as above. Yes all other systems are reviewed and are negative [facility], [facility] Medical History HTN (hypertension) COPD (chronic obstructive pulmonary disease) Social History Household Members: Spouse Household Members Other:: DAUGHTER Housing: Condominium Do you presently have visiting nurse or other home services: No Alcohol intake: current Alcohol intake frequency: holidays/special occasions only Alcohol type: beer Patient Tobacco Use Status: Current everyday Tobacco user Tobacco use type: Cigarette Cigarette Packs Per Day: 1 Cigarettes Per Day: 3 Years Smoked: 40 Smoked in Last 30 Days: No Second Hand Smoke Exposure: No Use of substances other than those prescribed or required for medical reasons: No Advance Directives: No Advance Directives Information Provided: No Do you have a plan to hurt others: No Plan Patient : No service: No Current occupational status: employed Meds Allergies Allergy/AdvReac Type Severity Reaction Status Date / Time No Known Allergies Allergy Verified 11/15/24 12:38 Active Medications: Current Medications Acetaminophen (Acetaminophen 325 Mg Tablet) 650 mg PO Q6H PRN PRN Reason: Pain, Mild 1-3,fever,headache Albuterol/Ipratropium (Albuterol/Iprat 2.5/0.5mg 3 Ml Ampul.Neb) 3 ml INHALE Q4H [facility] Aspirin (Aspirin Enteric Coated 81 Mg Tablet.) 81 mg PO DAILY [facility] Atorvastatin Calcium (Atorvastatin Calcium 10 Mg Tablet) 10 mg PO DAILY@1330 [facility] Calcium Carbonate (Calcium Carbonate 750 Mg Tab.Chew) 750 mg PO Q4H PRN PRN Reason: Heartburn Ceftriaxone Sodium (Ceftriaxone Sodium 1 Gm Vial) 1 gm IVPUSH Q24H [facility] Guaifenesin (Guaifenesin 200 Mg/10 Ml 10 Ml Liquid) 10 ml PO QID [facility] Guaifenesin (Guaifenesin La 600 Mg Tab.Er.12h) 600 mg PO BID PRN PRN Reason: Congestion Azithromycin 500 mg/ Sodium (Chloride) 250 mls @ 125 mls/hr IV Q24H [facility] Loratadine (Loratadine 10 Mg Tablet) 10 mg PO DAILY [facility] Losartan Potassium (Losartan Potassium 50 Mg Tablet) 100 mg PO DAILY [facility]; Protocol Magnesium Hydroxide (Milk Of Magnesia 30 Ml Oral.Susp) 30 ml PO DAILY PRN PRN Reason: Constipation Melatonin (Melatonin 3 Mg Tablet) 6 mg PO BEDTIME PRN PRN Reason: Insomnia Multivitamins/Vitamin C (Multivitamin Tablet) 1 tab PO DAILY [facility] Non-Formulary Medication (Citalopram) 40 mg PO DAILY@1330 [facility] Sodium Chloride (0.9 % Sodium Chloride Flush 3 Ml Syringe) 3 ml IVFLUSH QSHIFT [facility] Vitamin D (Cholecalciferol (Vitamin D3) 25 Mcg Tablet) 50 mcg PO DAILY [facility] Home Medications ?Medication ?Instructions ?Recorded ?Confirmed ?Last Taken ?Type citalopram 40 mg tablet 40 mg PO DAILY@1330 10/01/21 11/15/24 11/15/24 History losartan 100 mg tablet 100 mg PO DAILY 10/26/21 11/15/24 11/15/24 History albuterol sulfate 2.5 mg/3 mL 2.5 mg inhalation Q6H PRN 09/09/24 11/15/24 Unknown History (0.083 %) solution for nebulization Shortness Of Breath Or Wheezing albuterol sulfate 90 mcg/actuation 2 inh inhalation QID PRN shortness 09/09/24 11/15/24 Unknown History aerosol inhaler of breath or wheezing atorvastatin 10 mg tablet 10 mg PO DAILY@1330 09/09/24 11/15/24 11/15/24 History fluticasone fur. 100 mcg-umeclid 1 ea inhalation DAILY 09/09/24 11/15/24 11/15/24 History 62.5 mcg-vilant 25 mcg inhalat.powder (Trelegy Ellipta) cholecalciferol (vitamin D3) 50 50 mcg PO DAILY 11/15/24 11/15/24 11/15/24 History mcg (2,000 unit) capsule (Vitamin D3) guaifenesin 600 mg tablet, 600 mg PO BID PRN Congestion 11/15/24 11/15/24 Unknown History extended release 12 hr (Mucinex) multivitamin 1 tab PO DAILY 11/15/24 11/15/24 11/15/24 History Physical Exam Vital Signs and Narrative: Vital Signs: Last Vital Signs Temp 99.2 F 11/15/24 12:34 Pulse 86 11/15/24 13:01 Resp 14 11/15/24 13:01 BP 127/71 11/15/24 12:34 Pulse Ox 86 L 11/15/24 12:34 O2 Del Method Room Air 11/15/24 12:34 BMI result Body Mass Index 24.6 Appearance: Alert.? Oriented X3.? cvs: [id number], [id number]. res: air entry somewhat dimished on right sidr base ,has few cracles. abd: no rebound or guarding ,nt, bs present. ext pulses present , no cyanosis. neuro: axo3 , nonfocal. Results Labs 11/15/24 13:14 11/15/24 13:14 Labs: Laboratory Results - last 24 hr 11/15/24 13:14 MCV 89.8 MCH 30.9 MCHC 34.4 RDW 13.5 Plt Count 282 D MPV 8.6 L Immature Gran % (Auto) 0.5 H Neut % (Auto) 80.6 H Lymph % (Auto) 12.2 L [place] % (Auto) 4.6 Eos % (Auto) 1.9 Baso % (Auto) 0.2 Lymph # (Auto) 1.0 L [place] # (Auto) 0.4 Eos # (Auto) 0.2 Baso # (Auto) 0.0 Abs Immat Gran (auto) 0.04 H Absolute Neuts (auto) 6.8 Absolute Nucleated RBC 0.000 Nucleated RBC % (auto) 0.0 PT 12.4 INR 1.1 Anion Gap 12 Estim Creat Clear Calc 89.4 Estimated GFR > 60 Random Glucose 85 Calcium 8.9 Magnesium 2.0 Total Bilirubin 0.4 Direct Bilirubin 0.3 AST 20 ALT 14 Alkaline Phosphatase 87 B-Natriuretic Peptide 19 Total Protein 7.7 Albumin 3.7 Influenza Type A (PCR) NEGATIVE Influenza Type B (PCR) NEGATIVE RSV RNA Qual (PCR) NEGATIVE SARS-CoV-2 RNA (RT-PCR) NEGATIVE Imaging Radiologist's Impressions: Impressions Chest CTA 11/15/24 14:53 IMPRESSION: No acute pulmonary artery emboli. Multifocal pneumonia involving mostly the right lung. Moderate volume right-sided pleural effusion. Scoliosis, cervical thoracic spine. Fleischner guidelines were followed. Electronically signed by: Dionte Zhou MD 11/15/2024 03:32 PM EDT RP Assessment and Plan (1) Pneumonia: Qualifiers: Pneumonia type: due to unspecified organism Laterality: right Lung location: unspecified part of lung Qualified Code(s): J18.9 - Pneumonia, unspecified organism Status: Acute Plan 59y/o F with PMH of COPD on 2L, HTN, HLD, Hx TIA who presents to the hospital with right sided rib pain 3 days found to have paneumonia Multifocal pneumonia involving mostly the right lung: CTA shows mostly right-sided pneumonia and pleural effusion no tachycardia or tachypnea or fever or leucocytosis blood cultures pending continue ceftriaxone/azithromycin, loratadine, cough medication, lidocaine patch, Tylenol ch respiratory failure secondary to COPD with mild exacerbation: Added nebs, steroids, continue home oxygen 2 L. Hypotension: Blood pressure is 120's Medical reconciliation pending HLP: Medical reconciliation pending DVT prophylaxis: SubQ Lovenox Patient will benefit from 2 midnight stay because Multifocal pneumonia with ribcage pain, COPD exacerbation: Need IV antibiotics, nebs, steroids and respiratory status needs to monitor closely. Above management discussed with the patient detail length she understand and in agreement with the above plan, time spent 70 minute, patient full code. Quality Stroke Does the patient have a stroke diagnosis?: No VTE Prior VTE?: No VTE Risk Level:: Medical - moderate - high VTE Device Contraindication: N/A - Device Ordered VTE Drug Contraindication: N/A - Med Ordered
[2024-11-15 18:11] VITALS: BP 103/60; PULSE 67; RESP 16; TEMP 36.8; O2SAT 95
[2024-11-15] MEDS: Albuterol/Iprat 2.5/0.5MG 3 ML AMPUL.NEB INHALE (19:07)
[2024-11-15] MEDS: Enoxaparin Sodium 40 MG/0.4 ML SYRINGE SUBCUT (19:08)
[2024-11-15] MEDS: Loratadine 10 MG TABLET PO (19:08)
[2024-11-15] MEDS: Lidocaine 4 % Patch ADH..PATCH 1 PATCH TRANSDERMA (19:37)
[2024-11-15 20:32] VITALS: BP 101/59; PULSE 80; RESP 19; TEMP 36.9; O2SAT 92
[2024-11-15] MEDS: guaiFENesin 200 MG/10 ML 10 ML LIQUID PO (20:33)
[2024-11-15 23:23] VITALS: BP 108/73; PULSE 78; RESP 20; TEMP 37.2; O2SAT 96
[2024-11-16] VITALS (9 sets, daily range): BP systolic 102–121; BP diastolic 60–75; PULSE 81–106; RESP 14–20; TEMP 36.9–37.4; O2SAT 89–96
[2024-11-16 06:04] LABS: Hematocrit 29.4 % (37.0-47.0); Hemoglobin 9.9 g/dl (12.0-16.0)
[2024-11-16] MEDS: Albuterol/Iprat 2.5/0.5MG 3 ML AMPUL.NEB INHALE ×3 (07:44→19:40)
[2024-11-16] MEDS: Cholecalciferol (Vitamin D3) 25 MCG TABLET 50 MCG PO (08:20)
[2024-11-16] MEDS: Losartan Potassium 50 MG TABLET 100 MG PO (08:20)
[2024-11-16] MEDS: guaiFENesin 200 MG/10 ML 10 ML LIQUID PO ×4 (08:20→22:17)
[2024-11-16] MEDS: Multivitamin TABLET 1 TAB PO (08:21)
[2024-11-16] MEDS: Loratadine 10 MG TABLET PO (08:21)
[2024-11-16] MEDS: Aspirin Enteric Coated 81 MG TABLET.DR PO (08:21)
[2024-11-16] MEDS: 0.9 % Sodium Chloride Flush 3 ML SYRINGE IVFLUSH ×2 (08:21→17:02)
[2024-11-16] MEDS: Lidocaine 4 % Patch ADH..PATCH 1 PATCH TRANSDERMA (08:23)
[2024-11-16] MEDS: Atorvastatin Calcium 10 MG TABLET PO (13:11)
[2024-11-16] MEDS: Escitalopram Oxalate 20 MG TABLET PO (13:19)
--- NOTE | 2024-11-16 15:06 | P.PNIM_ITS ---
Subjective Subjective Date of Service: 11/16/24 Interval History: pneumonia Review of Systems rib cage pain improving no sob or cough Physical Exam 2 Vital Signs: Vital Signs: Last Vital Signs Temp 98.6 F 11/16/24 13:09 Pulse 90 11/16/24 13:09 Resp 18 11/16/24 13:09 BP 108/62 11/16/24 13:09 Pulse Ox 96 11/16/24 13:09 O2 Del Method Nasal Cannula 11/16/24 13:09 O2 Flow Rate 3 11/16/24 13:09 BMI result Body Mass Index 24.6 Appearance: Alert.? Oriented X3.? cvs: rrr, [id number]. res: air entry somewhat dimished on right sidr base ,has few cracles. abd: no rebound or guarding ,nt, bs present. ext pulses present , no cyanosis. neuro: axo3 , nonfocal. Objective Data Active Medications Acetaminophen (Acetaminophen 325 Mg Tablet) 650 mg PO Q6H PRN PRN Reason: Pain, Mild 1-3,fever,headache Albuterol/Ipratropium (Albuterol/Iprat 2.5/0.5mg 3 Ml Ampul.Neb) 3 ml INHALE Q4H [facility] Last Admin: 11/16/24 11:18 Dose: 3 ml Documented By: KATHERINE Aspirin (Aspirin Enteric Coated 81 Mg Tablet.) 81 mg PO DAILY [facility] Last Admin: 11/16/24 08:21 Dose: 81 mg Documented By: KACIE Atorvastatin Calcium (Atorvastatin Calcium 10 Mg Tablet) 10 mg PO DAILY@1330 [facility] Last Admin: 11/16/24 13:11 Dose: 10 mg Documented By: KACIE Calcium Carbonate (Calcium Carbonate 750 Mg Tab.Chew) 750 mg PO Q4H PRN PRN Reason: Heartburn Ceftriaxone Sodium (Ceftriaxone Sodium 1 Gm Vial) 1 gm IVPUSH Q24H [facility] Enoxaparin Sodium (Enoxaparin Sodium 40 Mg/0.4 Ml Syringe) 40 mg SUBCUT Q24H [facility] Last Admin: 11/15/24 19:08 Dose: 40 mg Documented By: MARTHA Escitalopram Oxalate (Escitalopram Oxalate 20 Mg Tablet) 20 mg PO DAILY@1330 [facility] Last Admin: 11/16/24 13:19 Dose: 20 mg Documented By: KACIE Guaifenesin (Guaifenesin 200 Mg/10 Ml 10 Ml Liquid) 10 ml PO QID [facility] Last Admin: 11/16/24 13:11 Dose: 10 ml Documented By: KACIE Guaifenesin (Guaifenesin La 600 Mg Tab.Er.12h) 600 mg PO BID PRN PRN Reason: Congestion Azithromycin 500 mg/ Sodium (Chloride) 250 mls @ 125 mls/hr IV Q24H [facility] Last Admin: 11/15/24 18:49 Dose: Not Given Documented By: MARTHA Non-Admin Reason: Duplicate Order Lidocaine (Lidocaine 4 % Patch Adh..Patch) 1 patch TRANSDERMA DAILY [facility]; Protocol Last Admin: 11/16/24 08:23 Dose: 1 patch Documented By: KACIE Loratadine (Loratadine 10 Mg Tablet) 10 mg PO DAILY [facility] Last Admin: 11/16/24 08:21 Dose: 10 mg Documented By: KACIE Losartan Potassium (Losartan Potassium 50 Mg Tablet) 100 mg PO DAILY [facility]; Protocol Last Admin: 11/16/24 08:20 Dose: 100 mg Documented By: KACIE Magnesium Hydroxide (Milk Of Magnesia 30 Ml Oral.Susp) 30 ml PO DAILY PRN PRN Reason: Constipation Melatonin (Melatonin 3 Mg Tablet) 6 mg PO BEDTIME PRN PRN Reason: Insomnia Multivitamins/Vitamin C (Multivitamin Tablet) 1 tab PO DAILY [facility] Last Admin: 11/16/24 08:21 Dose: 1 tab Documented By: KACIE Sodium Chloride (0.9 % Sodium Chloride Flush 3 Ml Syringe) 3 ml IVFLUSH QSHIFT [facility] Last Admin: 11/16/24 08:21 Dose: 3 ml Documented By: KACIE Vitamin D (Cholecalciferol (Vitamin D3) 25 Mcg Tablet) 50 mcg PO DAILY [facility] Last Admin: 11/16/24 08:20 Dose: 50 mcg Documented By: KACIE Labs 11/16/24 05:41 11/15/24 13:14 Assessment and Plan (1) Pneumonia: Status: Acute Assessment and Plan: 59y/o F with PMH of COPD on 2L, HTN, HLD, Hx TIA who presents to the hospital with right sided rib pain 3 days found to have paneumonia Multifocal pneumonia involving mostly the right lung: CTA shows mostly right-sided pneumonia and pleural effusion no tachycardia or tachypnea or fever or leucocytosis Strep Legionella antigen, nasal MRSA screen, sputum culture. blood cultures pending continue ceftriaxone/azithromycin, loratadine, cough medication, lidocaine patch, Tylenol id eval ch respiratory failure secondary to COPD with mild exacerbation: continue nebs, steroids, continue home oxygen 2 L. Hypertension: Blood pressure is 120's Medical reconciliation pending HLP: Medical reconciliation pending DVT prophylaxis: SubQ Lovenox Ongoing need to stay- because Multifocal pneumonia with ribcage pain, COPD exacerbation: Need IV antibiotics, nebs, steroids and respiratory status needs to monitor closely. Quality Stroke Does the patient have a stroke diagnosis?: No VTE Prior VTE?: No VTE Risk Level:: Medical - moderate - high VTE Device Contraindication: N/A - Device Ordered VTE Drug Contraindication: N/A - Med Ordered
--- NOTE | 2024-11-16 15:50 | PC.NURSE ---
pt independent with adls. ate lunch well. continues to require supplemental O2 to keep Spo2 above 90%. Currently on 3L - 96%. awaiting bed assignment. no acute distress
--- NOTE | 2024-11-16 16:36 | MHC.CM.PN ---
Addendum entered by Rosa Victoria 11/17/24 08:32: CORRECTION: PT DECLINED TO COMPLETE A HCP, HOWEVER STATES SHE HAS THE PAPERWORK AT HOME AND PLANS TO COMPLETE THEM. Original Note: PT REPORTS SHE LIVES WITH HER FIANCE AND IS INDEPENDENT WITH CARE SHE HAS HOME O2 SHE USES PRN AND AT NIGHT COPY OF HCP REQUESTED PCP: REBECCA BROWN DCP: HOME VIA PRIVATE TRANSPORT
[2024-11-16] MEDS: Azithromycin 500 MG in 0.9 % Sodium Chloride 250 ML 125 MG IV (17:02)
[2024-11-16] MEDS: Enoxaparin Sodium 40 MG/0.4 ML SYRINGE SUBCUT (17:02)
[2024-11-16] MEDS: cefTRIAXone sodium 1 GM VIAL IVPUSH (17:02)
--- NOTE | 2024-11-16 23:50 | PC.NURSE ---
Patient alert and oriented x4, VSS. Patient complaints of pain in right rib cage 2/10-at tolerable level. O2 Sats stable 92-93% on O2 at 2 LPM NC at rest. 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 Skin is intact, patient denies discomfort with urination, uses bedside commode independently. Last BM 11/15/2024. 20 G IV line in L AC is patent, asymptomatic. Patient is able to make her needs known, call cuellar in patient's reach, plan of care ongoing.
[2024-11-17] VITALS (9 sets, daily range): BP systolic 99–119; BP diastolic 58–70; PULSE 66–89; RESP 16–18; TEMP 36–37.3; O2SAT 90–95; BMI 24.9
[2024-11-17] MEDS: Acetaminophen 325 MG TABLET 650 MG PO ×2 (01:51→13:41)
[2024-11-17] MEDS: 0.9 % Sodium Chloride Flush 3 ML SYRINGE IVFLUSH ×3 (03:53→16:13)
[2024-11-17] MEDS: Albuterol/Iprat 2.5/0.5MG 3 ML AMPUL.NEB INHALE ×3 (07:36→20:01)
[2024-11-17 08:48] LABS: Hematocrit 31.5 % (37.0-47.0); Hemoglobin 10.4 g/dl (12.0-16.0)
[2024-11-17] MEDS: Lidocaine 4 % Patch ADH..PATCH 1 PATCH TRANSDERMA (09:13)
[2024-11-17] MEDS: Aspirin Enteric Coated 81 MG TABLET.DR PO (09:13)
[2024-11-17] MEDS: Cholecalciferol (Vitamin D3) 25 MCG TABLET 50 MCG PO (09:13)
[2024-11-17] MEDS: Multivitamin TABLET 1 TAB PO (09:13)
[2024-11-17] MEDS: Loratadine 10 MG TABLET PO (09:13)
[2024-11-17] MEDS: Omeprazole 20 MG CAPSULE.DR PO (09:13)
[2024-11-17] MEDS: guaiFENesin 200 MG/10 ML 10 ML LIQUID PO ×4 (09:13→19:55)
[2024-11-17] MEDS: Losartan Potassium 50 MG TABLET 100 MG PO (09:13)
[2024-11-17 12:31] LABS: MRSA Nasal PCR NEGATIVE (Negative); SA Nasal PCR NEGATIVE (Negative)
[2024-11-17] MEDS: Atorvastatin Calcium 10 MG TABLET PO (13:40)
[2024-11-17] MEDS: Escitalopram Oxalate 20 MG TABLET PO (13:40)
--- NOTE | 2024-11-17 14:03 | HO.PM.IMPN ---
Subjective Subjective Date of Service: 11/17/24 Interval History: pneumonia Review of Systems rib cage pain improving no fever Physical Exam Vital Signs: Vital Signs: Last Vital Signs Temp 97.1 F 11/17/24 11:23 Pulse 66 11/17/24 11:26 Resp 18 11/17/24 11:26 BP 104/66 11/17/24 11:23 Pulse Ox 94 11/17/24 11:23 O2 Del Method Nasal Cannula 11/17/24 11:23 O2 Flow Rate 2 11/17/24 11:23 BMI result Body Mass Index 24.9 Appearance: Alert.? Oriented X3.? cvs: rrr, [id number]. res: air entry somewhat dimished on right side base ,has few cracles. abd: no rebound or guarding ,nt, bs present. ext pulses present , no cyanosis. neuro: axo3 , nonfocal. Objective Data Active Medications Acetaminophen (Acetaminophen 325 Mg Tablet) 650 mg PO Q6H PRN PRN Reason: Pain, Mild 1-3,fever,headache Last Admin: 11/17/24 13:41 Dose: 650 mg Documented By: JADA Albuterol/Ipratropium (Albuterol/Iprat 2.5/0.5mg 3 Ml Ampul.Neb) 3 ml INHALE Q4H [facility] Last Admin: 11/17/24 11:26 Dose: 3 ml Documented By: MANOLO Aspirin (Aspirin Enteric Coated 81 Mg Tablet.Dr) 81 mg PO DAILY [facility] Last Admin: 11/17/24 09:13 Dose: 81 mg Documented By: JADA Atorvastatin Calcium (Atorvastatin Calcium 10 Mg Tablet) 10 mg PO DAILY@1330 [facility] Last Admin: 11/17/24 13:40 Dose: 10 mg Documented By: JADA Calcium Carbonate (Calcium Carbonate 750 Mg Tab.Chew) 750 mg PO Q4H PRN PRN Reason: Heartburn Ceftriaxone Sodium (Ceftriaxone Sodium 1 Gm Vial) 1 gm IVPUSH Q24H [facility] Last Admin: 11/16/24 17:02 Dose: 1 gm Documented By: KACIE Enoxaparin Sodium (Enoxaparin Sodium 40 Mg/0.4 Ml Syringe) 40 mg SUBCUT Q24H [facility] Last Admin: 11/16/24 17:02 Dose: 40 mg Documented By: KACIE Escitalopram Oxalate (Escitalopram Oxalate 20 Mg Tablet) 20 mg PO DAILY@1330 [facility] Last Admin: 11/17/24 13:40 Dose: 20 mg Documented By: JADA Guaifenesin (Guaifenesin 200 Mg/10 Ml 10 Ml Liquid) 10 ml PO QID [facility] Last Admin: 11/17/24 13:40 Dose: 10 ml Documented By: JADA Guaifenesin (Guaifenesin La 600 Mg Tab.Er.12h) 600 mg PO BID PRN PRN Reason: Congestion Azithromycin 500 mg/ Sodium (Chloride) 250 mls @ 125 mls/hr IV Q24H [facility] Last Infusion: 11/16/24 19:03 Dose: Infused Documented By: EMIR Lidocaine (Lidocaine 4 % Patch Adh..Patch) 1 patch TRANSDERMA DAILY [facility]; Protocol Last Admin: 11/17/24 09:13 Dose: 1 patch Documented By: JADA Loratadine (Loratadine 10 Mg Tablet) 10 mg PO DAILY [facility] Last Admin: 11/17/24 09:13 Dose: 10 mg Documented By: JADA Losartan Potassium (Losartan Potassium 50 Mg Tablet) 100 mg PO DAILY [facility]; Protocol Last Admin: 11/17/24 09:13 Dose: 100 mg Documented By: JADA Magnesium Hydroxide (Milk Of Magnesia 30 Ml Oral.Susp) 30 ml PO DAILY PRN PRN Reason: Constipation Melatonin (Melatonin 3 Mg Tablet) 6 mg PO BEDTIME PRN PRN Reason: Insomnia Multivitamins/Vitamin C (Multivitamin Tablet) 1 tab PO DAILY [facility] Last Admin: 11/17/24 09:13 Dose: 1 tab Documented By: JADA Omeprazole (Omeprazole 20 Mg Capsule.Dr) 20 mg PO DAILY@0630 [facility] Last Admin: 11/17/24 09:13 Dose: 20 mg Documented By: JADA Sodium Chloride (0.9 % Sodium Chloride Flush 3 Ml Syringe) 3 ml IVFLUSH QSHIFT [facility] Last Admin: 11/17/24 09:14 Dose: 3 ml Documented By: JADA Vitamin D (Cholecalciferol (Vitamin D3) 25 Mcg Tablet) 50 mcg PO DAILY [facility] Last Admin: 11/17/24 09:13 Dose: 50 mcg Documented By: JADA Labs 11/17/24 08:23 11/15/24 13:14 Labs: Laboratory Results - last 24 hr 11/16/24 16:59 Nasal Screen MRSA (PCR) NEGATIVE Nasal S. aureus Screen NEGATIVE Nasal MRSA/S.aureus Interp SEE NOTE Microbiology Microbiology Results: Microbiology 11/15/24 13:14 Blood Culture - Preliminary Blood - Venous No growth after 24 hours. 11/15/24 13:14 Blood Culture - Preliminary Blood - Venous No growth after 24 hours. Assessment and Plan (1) Pneumonia: Status: Acute Assessment and Plan: 59y/o F with PMH of COPD on 2L, HTN, HLD, Hx TIA who presents to the hospital with right sided rib pain 3 days found to have paneumonia Multifocal pneumonia involving mostly the right lung: CTA shows mostly right-sided pneumonia and pleural effusion no tachycardia or tachypnea or fever or leucocytosis nasal MRSA screen-negative Strep Legionella antigen, , sputum culture added. blood cultures pending continue ceftriaxone/azithromycin, loratadine, cough medication, lidocaine patch, Tylenol id eval ch respiratory failure secondary to COPD with mild exacerbation: continue nebs, steroids, continue home oxygen 2 L. Hypertension: Blood pressure is 120's Medical reconciliation pending HLP: Medical reconciliation pending DVT prophylaxis: SubQ Lovenox Ongoing need to stay- because Multifocal pneumonia with ribcage pain, COPD exacerbation: Need IV antibiotics, nebs, steroids and respiratory status needs to monitor closely. Quality Stroke Does the patient have a stroke diagnosis?: No VTE Prior VTE?: No VTE Risk Level:: Medical - moderate - high VTE Device Contraindication: N/A - Device Ordered VTE Drug Contraindication: N/A - Med Ordered
[2024-11-17] MEDS: cefTRIAXone sodium 1 GM VIAL IVPUSH (16:13)
[2024-11-17] MEDS: Enoxaparin Sodium 40 MG/0.4 ML SYRINGE SUBCUT (16:13)
[2024-11-17] MEDS: Azithromycin 500 MG in 0.9 % Sodium Chloride 250 ML 125 MG IV (16:15)
--- NOTE | 2024-11-17 23:03 | P.CNID_ITS ---
History of Present Illness Data of Consult Service Date: 11/17/24 Requesting physician: Bryce Fisher Primary Care Provider: Cinthia Anderson MD [facility] Reason for consult: cough She presents with cough and shortness of breath for three days. She has RLL pneumonia and hypoxia. SHe has had pneumonia in past. SHe has increased oxygen requirements from 2 to 3 1/2 l Review of Systems 2 Review of Systems: Yes all other systems are reviewed and are negative [facility] Past Medical History Medical History Sleep apnea TIA (transient ischemic attack) HTN (hypertension) COPD (chronic obstructive pulmonary disease) Family History Family history: reviewed and not pertinent Social History Social History Household Members: Significant Other Household Members Other:: DAUGHTER Housing: [facility] Do you presently have visiting nurse or other home services: No Alcohol intake: current Alcohol intake frequency: holidays/special occasions only Alcohol type: beer Patient Tobacco Use Status: Former Tobacco user Tobacco use type: Cigarette Cigarette Packs Per Day: 1 Cigarettes Per Day: 3 Years Smoked: 40 Second Hand Smoke Exposure: No service: No Current occupational status: employed Meds Allergies Allergy/AdvReac Type Severity Reaction Status Date / Time No Known Allergies Allergy Verified 11/15/24 12:38 Active Medications: Current Medications Acetaminophen (Acetaminophen 325 Mg Tablet) 650 mg PO Q6H PRN PRN Reason: Pain, Mild 1-3,fever,headache Last Admin: 11/17/24 13:41 Dose: 650 mg Albuterol/Ipratropium (Albuterol/Iprat 2.5/0.5mg 3 Ml Ampul.Neb) 3 ml INHALE Q4H [facility] Last Admin: 11/17/24 20:01 Dose: 3 ml Aspirin (Aspirin Enteric Coated 81 Mg Tablet.Dr) 81 mg PO DAILY [facility] Last Admin: 11/17/24 09:13 Dose: 81 mg Atorvastatin Calcium (Atorvastatin Calcium 10 Mg Tablet) 10 mg PO DAILY@1330 [facility] Last Admin: 11/17/24 13:40 Dose: 10 mg Calcium Carbonate (Calcium Carbonate 750 Mg Tab.Chew) 750 mg PO Q4H PRN PRN Reason: Heartburn Ceftriaxone Sodium (Ceftriaxone Sodium 1 Gm Vial) 1 gm IVPUSH Q24H [facility] Last Admin: 11/17/24 16:13 Dose: 1 gm Enoxaparin Sodium (Enoxaparin Sodium 40 Mg/0.4 Ml Syringe) 40 mg SUBCUT Q24H [facility] Last Admin: 11/17/24 16:13 Dose: 40 mg Escitalopram Oxalate (Escitalopram Oxalate 20 Mg Tablet) 20 mg PO DAILY@1330 [facility] Last Admin: 11/17/24 13:40 Dose: 20 mg Guaifenesin (Guaifenesin 200 Mg/10 Ml 10 Ml Liquid) 10 ml PO QID [facility] Last Admin: 11/17/24 19:55 Dose: 10 ml Guaifenesin (Guaifenesin La 600 Mg Tab.Er.12h) 600 mg PO BID PRN PRN Reason: Congestion Azithromycin 500 mg/ Sodium (Chloride) 250 mls @ 125 mls/hr IV Q24H [facility] Last Infusion: 11/17/24 18:45 Dose: Infused Lidocaine (Lidocaine 4 % Patch Adh..Patch) 1 patch TRANSDERMA DAILY [facility]; Protocol Last Admin: 11/17/24 09:13 Dose: 1 patch Loratadine (Loratadine 10 Mg Tablet) 10 mg PO DAILY [facility] Last Admin: 11/17/24 09:13 Dose: 10 mg Losartan Potassium (Losartan Potassium 50 Mg Tablet) 100 mg PO DAILY [facility]; Protocol Last Admin: 11/17/24 09:13 Dose: 100 mg Magnesium Hydroxide (Milk Of Magnesia 30 Ml Oral.Susp) 30 ml PO DAILY PRN PRN Reason: Constipation Melatonin (Melatonin 3 Mg Tablet) 6 mg PO BEDTIME PRN PRN Reason: Insomnia Multivitamins/Vitamin C (Multivitamin Tablet) 1 tab PO DAILY [facility] Last Admin: 11/17/24 09:13 Dose: 1 tab Omeprazole (Omeprazole 20 Mg Capsule.Dr) 20 mg PO DAILY@0630 [facility] Last Admin: 11/17/24 09:13 Dose: 20 mg Sodium Chloride (0.9 % Sodium Chloride Flush 3 Ml Syringe) 3 ml IVFLUSH QSHIFT [facility] Last Admin: 11/17/24 16:13 Dose: 3 ml Vitamin D (Cholecalciferol (Vitamin D3) 25 Mcg Tablet) 50 mcg PO DAILY [facility] Last Admin: 11/17/24 09:13 Dose: 50 mcg Home Medications ?Medication ?Instructions ?Recorded ?Confirmed ?Last Taken ?Type citalopram 40 mg tablet 40 mg PO DAILY@1330 10/01/21 11/15/24 11/15/24 History losartan 100 mg tablet 100 mg PO DAILY 10/26/21 11/15/24 11/15/24 History albuterol sulfate 2.5 mg/3 mL 2.5 mg inhalation Q6H PRN 09/09/24 11/15/24 Unknown History (0.083 %) solution for nebulization Shortness Of Breath Or Wheezing albuterol sulfate 90 mcg/actuation 2 inh inhalation QID PRN shortness 09/09/24 11/15/24 Unknown History aerosol inhaler of breath or wheezing atorvastatin 10 mg tablet 10 mg PO DAILY@1330 09/09/24 11/15/24 11/15/24 History fluticasone fur. 100 mcg-umeclid 1 ea inhalation DAILY 09/09/24 11/15/24 11/15/24 History 62.5 mcg-vilant 25 mcg inhalat.powder (Trelegy Ellipta) cholecalciferol (vitamin D3) 50 50 mcg PO DAILY 11/15/24 11/15/24 11/15/24 History mcg (2,000 unit) capsule (Vitamin D3) guaifenesin 600 mg tablet, 600 mg PO BID PRN Congestion 11/15/24 11/15/24 Unknown History extended release 12 hr (Mucinex) multivitamin 1 tab PO DAILY 11/15/24 11/15/24 11/15/24 History Physical Exam 2 Vital Signs: Vital Signs: Last Vital Signs Temp 97.6 F 11/17/24 19:31 Pulse 75 11/17/24 20:03 Resp 18 11/17/24 20:03 BP 112/60 11/17/24 19:31 Pulse Ox 92 11/17/24 19:31 O2 Del Method Nasal Cannula 11/17/24 19:31 O2 Flow Rate 3 11/17/24 19:31 BMI result Body Mass Index 24.9 Const: General: cooperative HEENT: Head: Yes normal to inspection Face and sinus: Yes normal facial exam Mouth: Normal oral and palatal mucosa present Teeth and gingiva: d entition normal Eyes: General: appearance normal, both eyes and all related structures P upils: Equal, round and reactive pupils present Resp: Other: rhonchi right base Effort & Inspection: normal respiratory effort Cardio: Rate: regular rate Rhythm: regular rhythm GI: Palpation (GI): Soft to palpation and nontender : General: Yes no CVA tenderness Back/Spine/Pelvis: Back: no CVA tenderness Skin: General skin exam: no rashes or lesions noted Neuro: General: moves all extremities Cranial nerves: Yes Equal, round and reactive pupils present Extrem: General: Yes normal to inspection Psych: Appearance: grossly normal Results Labs 11/17/24 08:23 11/15/24 13:14 Labs: Short CBC 11/17/24 Range/Units 08:23 Hgb 10.4 L (12.0-16.0) g/dl Hct 31.5 L (37.0-47.0) % Microbiology Microbiology Results: Microbiology 11/15/24 13:14 Blood - Venous Blood Culture - Preliminary No growth after 48 hours. 11/15/24 13:14 Blood - Venous Blood Culture - Preliminary No growth after 48 hours. Assessment and Plan (1) Pneumonia: Qualifiers: Pneumonia type: due to unspecified organism Laterality: right Lung location: unspecified part of lung Qualified Code(s): J18.9 - Pneumonia, unspecified organism Status: Acute (2) Acute bronchitis: Status: Acute Plan RLL pneumonia in COPD patient Atypical and typical bacteria may be present. Less likely aspiration Would give CTX and Zmax,total5-7 days and then po Ceftin and Zmax for total 8 days Check nares MRSA
[2024-11-18] VITALS (12 sets, daily range): BP systolic 94–116; BP diastolic 61–68; PULSE 71–93; RESP 14–18; TEMP 36–37.1; O2SAT 89–94
[2024-11-18] MEDS: Acetaminophen 325 MG TABLET 650 MG PO (00:37)
[2024-11-18] MEDS: Omeprazole 20 MG CAPSULE.DR PO (05:03)
[2024-11-18] MEDS: Albuterol/Iprat 2.5/0.5MG 3 ML AMPUL.NEB INHALE ×4 (08:20→19:42)
[2024-11-18] MEDS: Loratadine 10 MG TABLET PO (09:09)
[2024-11-18] MEDS: Multivitamin TABLET 1 TAB PO (09:09)
[2024-11-18] MEDS: Losartan Potassium 50 MG TABLET 100 MG PO (09:09)
[2024-11-18] MEDS: guaiFENesin 200 MG/10 ML 10 ML LIQUID PO ×4 (09:09→20:08)
[2024-11-18] MEDS: Cholecalciferol (Vitamin D3) 25 MCG TABLET 50 MCG PO (09:11)
[2024-11-18] MEDS: Aspirin Enteric Coated 81 MG TABLET.DR PO (09:11)
[2024-11-18] MEDS: 0.9 % Sodium Chloride Flush 3 ML SYRINGE IVFLUSH ×2 (09:12→17:56)
[2024-11-18] MEDS: Lidocaine 4 % Patch ADH..PATCH 1 PATCH TRANSDERMA (09:13)
--- NOTE | 2024-11-18 11:21 | MHC.CM.PN ---
Per ROUNDS, Patient is not yet medically cleared for dc (2 IV ABT and chest Xray today); home is the goal and CM will follow.
--- NOTE | 2024-11-18 12:11 | P.PNIM_ITS ---
Subjective Subjective Date of Service: 11/18/24 Interval History: pneumonia Review of Systems rib cage pain improving no fever Physical Exam 2 Vital Signs: Vital Signs: Last Vital Signs Temp 96.9 F 11/18/24 11:41 Pulse 78 11/18/24 11:41 Resp 16 11/18/24 11:41 BP 108/61 11/18/24 11:41 Pulse Ox 90 L 11/18/24 11:41 O2 Del Method Nasal Cannula 11/18/24 11:41 O2 Flow Rate 2 11/18/24 11:41 BMI result Body Mass Index 24.9 Appearance: Alert.? Oriented X3.? cvs: rrr, [id number]. res: air entry somewhat dimished on right side base ,has few cracles. abd: no rebound or guarding ,nt, bs present. ext pulses present , no cyanosis. neuro: axo3 , nonfocal. Objective Data Active Medications Acetaminophen (Acetaminophen 325 Mg Tablet) 650 mg PO Q6H PRN PRN Reason: Pain, Mild 1-3,fever,headache Last Admin: 11/18/24 00:37 Dose: 650 mg Documented By: VERONICA Albuterol/Ipratropium (Albuterol/Iprat 2.5/0.5mg 3 Ml Ampul.Neb) 3 ml INHALE RQ4H [facility] Last Admin: 11/18/24 11:07 Dose: 3 ml Documented By: MOHAN Aspirin (Aspirin Enteric Coated 81 Mg Tablet.) 81 mg PO DAILY [facility] Last Admin: 11/18/24 09:11 Dose: 81 mg Documented By: DECLAN Atorvastatin Calcium (Atorvastatin Calcium 10 Mg Tablet) 10 mg PO DAILY@1330 [facility] Last Admin: 11/17/24 13:40 Dose: 10 mg Documented By: JADA Calcium Carbonate (Calcium Carbonate 750 Mg Tab.Chew) 750 mg PO Q4H PRN PRN Reason: Heartburn Ceftriaxone Sodium (Ceftriaxone Sodium 1 Gm Vial) 1 gm IVPUSH Q24H [facility] Last Admin: 11/17/24 16:13 Dose: 1 gm Documented By: JADA Enoxaparin Sodium (Enoxaparin Sodium 40 Mg/0.4 Ml Syringe) 40 mg SUBCUT Q24H [facility] Last Admin: 11/17/24 16:13 Dose: 40 mg Documented By: JADA Escitalopram Oxalate (Escitalopram Oxalate 20 Mg Tablet) 20 mg PO DAILY@1330 [facility] Last Admin: 11/17/24 13:40 Dose: 20 mg Documented By: JADA Guaifenesin (Guaifenesin 200 Mg/10 Ml 10 Ml Liquid) 10 ml PO QID [facility] Last Admin: 11/18/24 09:09 Dose: 10 ml Documented By: DECLAN Guaifenesin (Guaifenesin La 600 Mg Tab.Er.12h) 600 mg PO BID PRN PRN Reason: Congestion Azithromycin 500 mg/ Sodium (Chloride) 250 mls @ 125 mls/hr IV Q24H [facility] Last Infusion: 11/17/24 18:45 Dose: Infused Documented By: TATI Lidocaine (Lidocaine 4 % Patch Adh..Patch) 1 patch TRANSDERMA DAILY [facility]; Protocol Last Admin: 11/18/24 09:13 Dose: 1 patch Documented By: DECLAN Loratadine (Loratadine 10 Mg Tablet) 10 mg PO DAILY [facility] Last Admin: 11/18/24 09:09 Dose: 10 mg Documented By: DECLAN Losartan Potassium (Losartan Potassium 50 Mg Tablet) 100 mg PO DAILY [facility]; Protocol Last Admin: 11/18/24 09:09 Dose: 100 mg Documented By: DECLAN Magnesium Hydroxide (Milk Of Magnesia 30 Ml Oral.Susp) 30 ml PO DAILY PRN PRN Reason: Constipation Melatonin (Melatonin 3 Mg Tablet) 6 mg PO BEDTIME PRN PRN Reason: Insomnia Multivitamins/Vitamin C (Multivitamin Tablet) 1 tab PO DAILY [facility] Last Admin: 11/18/24 09:09 Dose: 1 tab Documented By: DECLAN Omeprazole (Omeprazole 20 Mg Capsule.Dr) 20 mg PO DAILY@0630 [facility] Last Admin: 11/18/24 05:03 Dose: 20 mg Documented By: VERONICA Sodium Chloride (0.9 % Sodium Chloride Flush 3 Ml Syringe) 3 ml IVFLUSH QSHIFT [facility] Last Admin: 11/18/24 09:12 Dose: 3 ml Documented By: DECLAN Vitamin D (Cholecalciferol (Vitamin D3) 25 Mcg Tablet) 50 mcg PO DAILY [facility] Last Admin: 11/18/24 09:11 Dose: 50 mcg Documented By: DECLNA Labs 11/17/24 08:23 11/15/24 13:14 Labs: Laboratory Results - last 24 hr 11/16/24 16:59 Nasal Screen MRSA (PCR) NEGATIVE Nasal S. aureus Screen NEGATIVE Nasal MRSA/S.aureus Interp SEE NOTE Microbiology Microbiology Results: Microbiology 11/15/24 13:14 Blood Culture - Preliminary Blood - Venous No growth after 48 hours. 11/15/24 13:14 Blood Culture - Preliminary Blood - Venous No growth after 48 hours. Assessment and Plan (1) Pneumonia: Status: Acute Assessment and Plan: 59y/o F with PMH of COPD on 2L, HTN, HLD, Hx TIA who presents to the hospital with right sided rib pain 3 days found to have paneumonia Multifocal pneumonia involving mostly the right lung: CTA shows mostly right-sided pneumonia and pleural effusion no tachycardia or tachypnea or fever or leucocytosis nasal MRSA screen-negative Strep/ Legionella antigen, , sputum culture added. blood cultures pending continue ceftriaxone/azithromycin day4 , loratadine, cough medication, lidocaine patch, Tylenol will repeat cxr today id eval :Would give CTX and Zmax,total5-7 days and then po Ceftin and Zmax for total 8 days ch respiratory failure secondary to COPD with mild exacerbation: continue nebs, steroids, continue home oxygen 2 L. Hypertension: Blood pressure is 120's Medical reconciliation pending HLP: Medical reconciliation pending DVT prophylaxis: SubQ Lovenox Ongoing need to stay- because Multifocal pneumonia with ribcage pain, COPD exacerbation: Need IV antibiotics, nebs, steroids and respiratory status needs to monitor closely. Quality Stroke Does the patient have a stroke diagnosis?: No VTE Prior VTE?: No VTE Risk Level:: Medical - moderate - high VTE Device Contraindication: N/A - Device Ordered VTE Drug Contraindication: N/A - Med Ordered
[2024-11-18] MEDS: Atorvastatin Calcium 10 MG TABLET PO (13:48)
[2024-11-18] MEDS: Escitalopram Oxalate 20 MG TABLET PO (13:48)
[2024-11-18] MEDS: Azithromycin 500 MG in 0.9 % Sodium Chloride 250 ML 125 MG IV (17:55)
[2024-11-18] MEDS: cefTRIAXone sodium 1 GM VIAL IVPUSH (17:55)
[2024-11-18] MEDS: Enoxaparin Sodium 40 MG/0.4 ML SYRINGE SUBCUT (17:56)
[2024-11-19 03:32] VITALS: BP 115/74; PULSE 81; RESP 18; TEMP 36.6; O2SAT 90
[2024-11-19] MEDS: Acetaminophen 325 MG TABLET 650 MG PO (05:20)
[2024-11-19] MEDS: Omeprazole 20 MG CAPSULE.DR PO (05:21)
[2024-11-19 07:52] VITALS: BP 131/77; PULSE 70; RESP 14; TEMP 36.3; O2SAT 89
[2024-11-19] MEDS: Cholecalciferol (Vitamin D3) 25 MCG TABLET 50 MCG PO (08:00)
[2024-11-19] MEDS: Loratadine 10 MG TABLET PO (08:00)
[2024-11-19] MEDS: Aspirin Enteric Coated 81 MG TABLET.DR PO (08:00)
[2024-11-19] MEDS: Multivitamin TABLET 1 TAB PO (08:01)
[2024-11-19] MEDS: Losartan Potassium 50 MG TABLET 100 MG PO (08:01)
[2024-11-19] MEDS: guaiFENesin 200 MG/10 ML 10 ML LIQUID PO ×3 (08:01→17:05)
[2024-11-19] MEDS: 0.9 % Sodium Chloride Flush 3 ML SYRINGE IVFLUSH (08:03)
[2024-11-19] MEDS: Albuterol/Iprat 2.5/0.5MG 3 ML AMPUL.NEB INHALE ×3 (08:44→18:04)
[2024-11-19 08:50] VITALS: PULSE 74; RESP 18; O2SAT 93
--- NOTE | 2024-11-19 10:56 | P.PNIM_ITS ---
Subjective Subjective Date of Service: 11/19/24 Physical Exam 2 Vital Signs: Vital Signs: Last Vital Signs Temp 97.4 F 11/19/24 07:52 Pulse 74 11/19/24 08:50 Resp 18 11/19/24 08:50 BP 131/77 11/19/24 07:52 Pulse Ox 89 L 11/19/24 07:52 O2 Del Method Nasal Cannula 11/19/24 07:52 O2 Flow Rate 2 11/19/24 07:52 BMI result Body Mass Index 24.9 Objective Data Active Medications Acetaminophen (Acetaminophen 325 Mg Tablet) 650 mg PO Q6H PRN PRN Reason: Pain, Mild 1-3,fever,headache Last Admin: 11/19/24 05:20 Dose: 650 mg Documented By: VERONICA Albuterol/Ipratropium (Albuterol/Iprat 2.5/0.5mg 3 Ml Ampul.Neb) 3 ml INHALE RQ4H [facility] Last Admin: 11/19/24 08:44 Dose: 3 ml Documented By: KATHERINE Aspirin (Aspirin Enteric Coated 81 Mg Tablet.Dr) 81 mg PO DAILY [facility] Last Admin: 11/19/24 08:00 Dose: 81 mg Documented By: SIMEON Atorvastatin Calcium (Atorvastatin Calcium 10 Mg Tablet) 10 mg PO DAILY@1330 [facility] Last Admin: 11/18/24 13:48 Dose: 10 mg Documented By: SIMEON Calcium Carbonate (Calcium Carbonate 750 Mg Tab.Chew) 750 mg PO Q4H PRN PRN Reason: Heartburn Ceftriaxone Sodium (Ceftriaxone Sodium 1 Gm Vial) 1 gm IVPUSH Q24H [facility] Last Admin: 11/18/24 17:55 Dose: 1 gm Documented By: SIMEON Enoxaparin Sodium (Enoxaparin Sodium 40 Mg/0.4 Ml Syringe) 40 mg SUBCUT Q24H [facility] Last Admin: 11/18/24 17:56 Dose: 40 mg Documented By: SIMEON Escitalopram Oxalate (Escitalopram Oxalate 20 Mg Tablet) 20 mg PO DAILY@1330 [facility] Last Admin: 11/18/24 13:48 Dose: 20 mg Documented By: SIMEON Guaifenesin (Guaifenesin 200 Mg/10 Ml 10 Ml Liquid) 10 ml PO QID [facility] Last Admin: 11/19/24 08:01 Dose: 10 ml Documented By: SIMEON Guaifenesin (Guaifenesin La 600 Mg Tab.Er.12h) 600 mg PO BID PRN PRN Reason: Congestion Azithromycin 500 mg/ Sodium (Chloride) 250 mls @ 125 mls/hr IV Q24H [facility] Last Infusion: 11/18/24 19:55 Dose: Infused Documented By: VERONICA Lidocaine (Lidocaine 4 % Patch Adh..Patch) 1 patch TRANSDERMA DAILY [facility]; Protocol Last Admin: 11/19/24 08:01 Dose: Not Given Documented By: SIMEON Non-Admin Reason: Patient Refused Loratadine (Loratadine 10 Mg Tablet) 10 mg PO DAILY [facility] Last Admin: 11/19/24 08:00 Dose: 10 mg Documented By: SIMEON Losartan Potassium (Losartan Potassium 50 Mg Tablet) 100 mg PO DAILY [facility]; Protocol Last Admin: 11/19/24 08:01 Dose: 100 mg Documented By: SIMEON Magnesium Hydroxide (Milk Of Magnesia 30 Ml Oral.Susp) 30 ml PO DAILY PRN PRN Reason: Constipation Melatonin (Melatonin 3 Mg Tablet) 6 mg PO BEDTIME PRN PRN Reason: Insomnia Multivitamins/Vitamin C (Multivitamin Tablet) 1 tab PO DAILY [facility] Last Admin: 11/19/24 08:01 Dose: 1 tab Documented By: SIMEON Omeprazole (Omeprazole 20 Mg Capsule.Dr) 20 mg PO DAILY@0630 [facility] Last Admin: 11/19/24 05:21 Dose: 20 mg Documented By: VERONICA Sodium Chloride (0.9 % Sodium Chloride Flush 3 Ml Syringe) 3 ml IVFLUSH QSHIFT [facility] Last Admin: 11/19/24 08:03 Dose: 3 ml Documented By: SIMEON Vitamin D (Cholecalciferol (Vitamin D3) 25 Mcg Tablet) 50 mcg PO DAILY [facility] Last Admin: 11/19/24 08:00 Dose: 50 mcg Documented By: SIMEON Labs 11/17/24 08:23 11/15/24 13:14 Quality Stroke Does the patient have a stroke diagnosis?: No VTE Prior VTE?: No VTE Risk Level:: Medical - moderate - high VTE Device Contraindication: N/A - Device Ordered VTE Drug Contraindication: N/A - Med Ordered
[2024-11-19 11:12] VITALS: BP 99/64; PULSE 79; RESP 14; TEMP 36.3; O2SAT 91
[2024-11-19 11:57] VITALS: PULSE 76; PULSE 78; PULSE 79; PULSE 81; O2SAT 86; O2SAT 87; O2SAT 90; O2SAT 91
[2024-11-19] MEDS: Atorvastatin Calcium 10 MG TABLET PO (14:11)
[2024-11-19] MEDS: Escitalopram Oxalate 20 MG TABLET PO (14:11)
--- NOTE | 2024-11-19 15:17 | PM.DS ---
DS: Providers Provider Date of Service: 11/19/24 Date of admission: 11/15/24 17:32 Date of discharge: 11/19/24 Primary care physician: Cinthia Anderson MD Attending physician on admission: Karen Sanchez Consults: 11/16/24 15:07 Consult to Infectious Diseases Routine Consulting Provider: [facility] Reason for consultation: penumonia /effusion Has provider been notified: No Attending physician on discharge: Estella Romero Discharging clinician: Tova Sosa DS: Diagnosis Discharge Diagnosis (1) Pneumonia: Status: Acute DS: Summary Hospital Course Hospital Course: HPI on admission by Dr. Fisher 11/15: Chief Complaint: pneumonia HPI:59y/o F with PMH of COPD on 2L, HTN, HLD, Hx TIA who presents to the hospital with right sided rib pain 3 days she has had right sided rib pain that is worse with laying on that side and does not relieve with positioning, in addition has dry cough. she says she had recent travel trip ?in after that she was diagnosed with lung infection by her PCP and was given antibiotics and steroids-after that she felt better. Denies any sick contact or fever or chills or nausea or vomiting. Seems generalized weak. Lab imaging reviewed: No leukocytosis, H&H 10.6/30.8, blood culture pending, EKG NSR. cta:No acute pulmonary artery emboli.Multifocal pneumonia involving mostly the right lung. Moderate volume right-sided pleural effusion. Hospital course: Patient admitted to [facility] due to multifocal pneumonia with dependent effusion. Pt treated with IV ctx and IV Zithromax x5 days with symptomatic improvement. Patient underwent home O2 evaluation and is recommended to wear 2 L supplemental O2 at rest and 3 L with exertion. As symptoms improve, she can monitor oximetry with goal 88-92% and then resume her baseline 2L at bedtime. Recommended to complete course 500mg BID x 6 doses and zithromax 500mg daily x 3 doses. Follow up with PCP. Multifocal pneumonia involving mostly the right lung: CTA shows mostly right-sided pneumonia and pleural effusion no tachycardia or tachypnea or fever or leucocytosis nasal MRSA screen-negative Blood cultures negative Sputum culture unable to be obtained Completed 5d ctx and zmax. Continue ceftin 500mg BID and zmax 500mg daily x 3 days per ID No aprisis/severe sepsis Acute on chronic respiratory failure secondary above, complicated by COPD with mild exacerbation: Initially treated with duonbs and steroids. No indication for ongoing steroid therapy Continue home inhalers Hypertension resume home medications Status at Discharge Functional status at discharge: independent ambulation Overall status at discharge: patient is progressing back to baseline Time Attestation Discharge Coordination Time (in mins): 40 Quality: Safe Use of Opioids Does Pt have an Active Cancer Diagnosis on the Problem List?: No Quality: Stroke Does the patient have a stroke diagnosis?: No Physical Exam Vital Signs: Vital Signs: Last Vital Signs Temp 97.4 F 11/19/24 11:12 Pulse 79 11/19/24 11:12 Resp 14 11/19/24 11:12 BP 99/64 11/19/24 11:12 Pulse Ox 91 L 11/19/24 11:12 O2 Del Method Nasal Cannula 11/19/24 11:12 O2 Flow Rate 2 11/19/24 11:12 BMI result Body Mass Index 24.9 DS: Data Data Completed and Pending Completed studies during hospitalization [Text1]: Procedures Introduction of Other Thrombolytic into Peripheral Vein, Percutaneous Approach (10/01/21) Labs on day of discharge: Preliminary micro results at discharge 11/15/24 13:14 Blood Culture - Preliminary Blood - Venous No growth after 48 hours. 11/15/24 13:14 Blood Culture - Preliminary Blood - Venous No growth after 48 hours. Discharge Plan Discharge Anticipated Discharge Date/Time: 11/19/24 13:29 Patient Disposition: Home, Self-Care Discharge Diagnosis: Acute on chronic hypoxemic respiratory failue, pneumonia Referrals: Cinthia Anderson MD [Primary Care Provider] - 1 Week Discharge Medications: New cefuroxime axetil 500 mg tablet 500 mg PO BID Qty: 6 0RF azithromycin 500 mg tablet 500 mg PO DAILY 3 Days Qty: 3 0RF Continued citalopram 40 mg tablet 40 mg PO DAILY@1330 aspirin 81 mg Tablet,Delayed Release (Dr/Ec) 81 mg PO DAILY Qty: 30 0RF guaifenesin [Mucinex] 600 mg tablet extended release 12hr 600 mg PO BID PRN (Reason: Congestion) multivitamin Tablet 1 tab PO DAILY cholecalciferol (vitamin D3) [Vitamin D3] 50 mcg (2,000 unit) Capsule 50 mcg PO DAILY atorvastatin 10 mg tablet 10 mg PO DAILY@1330 Trelegy Ellipta 100-62.5-25 mcg blister with device 1 ea inhalation DAILY albuterol sulfate 2.5 mg /3 mL (0.083 %) solution for nebulization 2.5 mg inhalation Q6H PRN (Reason: Shortness Of Breath Or Wheezing) albuterol sulfate 90 mcg/actuation HFA aerosol inhaler 2 inh inhalation QID PRN (Reason: shortness of breath or wheezing) losartan 100 mg tablet 100 mg PO DAILY Discharge Orders: Discharge Order (Routine); Ordered 11/19/24 Ordered By: Tova Sosa Diet: Advance to usual diet Activity on Discharge: As tolerated Stand Alone Forms: Patient Portal Discharge page Print Language: Turkish Care Plan Goals: Admitted with multifocal pneumonia with acute hypoxemic respiratory failure Treated with IV antibiotics x5 doses Seen by infectious disease recommending an addition 3 days of cefuroxime 500mg twice daily (6 doses) and azithromycin 500mg daily (3 doses) Respiratory therapy recommending continuing 2L O2 at rest and 3L with exertion. Wean as tolerated keeping O2 between 90-92% Follow up with your PCP Continue maintenance inhalers Health Concerns: Acute hypoxemic respiratory failure Multifocal pneumonia Plan of Treatment: See above Assessment: See above. See discharge summary
[2024-11-19] MEDS: Azithromycin 500 MG in 0.9 % Sodium Chloride 250 ML 125 MG IV (15:31)
[2024-11-19] MEDS: cefTRIAXone sodium 1 GM VIAL IVPUSH (15:32)
[2024-11-19] MEDS: Enoxaparin Sodium 40 MG/0.4 ML SYRINGE SUBCUT (17:04)
[2024-11-19 18:06] VITALS: PULSE 74; RESP 16
[2024-11-20 06:44] LABS: Strep Pneumo Ag urine Not Detected (Not Detected)
[2024-11-21 06:08] LABS: Legionella Ag Urine Not Detected (Not Detected)
== END 2024-11-19 18:21 | disposition home or self-care (01) | DRG 139 ==
LOC: HO.ED 13:27 → HO.EDOVER 17:40 → HO.IMC 11-16 23:28
PROVIDERS: Physician Assistant; Admitting Provider Internal Medicine; Emergency Provider Emergency Medicine; PCP Internal Medicine Endocrinology, Diabetes & Metabolism; Visit Provider Physician Assistant
DX: J18.9 Pneumonia, unspecified organism (principal); J96.21 Acute and chronic respiratory failure with hypoxia; I95.9 Hypotension, unspecified; J44.0 Chronic obstructive pulmonary disease with (acute) lower respiratory infection; Z99.81 Dependence on supplemental oxygen; E78.5 Hyperlipidemia, unspecified; J44.1 Chronic obstructive pulmonary disease with (acute) exacerbation; Z20.822 Contact with and (suspected) exposure to COVID-19; Z87.891 Personal history of nicotine dependence; Z79.82 Long term (current) use of aspirin; Z79.899 Other long term (current) drug therapy
CPT/HCPCS: 0241U; 36415; 71045; 71275; 80048; 80076; 83735; 83880; 84484; 85014; 85018; 85025; 85610; 87040; 87449; 87640; 87641; 87899; 93005; 94640; 99285; J0456; J0696; J1650; Q9967

== ENCOUNTER → 2024-11-15 12:37 | Outpatient (BNV) | payer OTHER, SELFPAY | PROVIDERS: Admitting Provider Internal Medicine; Emergency Provider Emergency Medicine; PCP Internal Medicine Endocrinology, Diabetes & Metabolism; Visit Provider Internal Medicine Cardiovascular Disease | DX: R06.09 Other forms of dyspnea (principal); R94.31 Abnormal electrocardiogram [ECG] [EKG] | CPT/HCPCS: 93010 ==

== ENCOUNTER → 2024-11-15 12:57 | Outpatient (BNV) | payer OTHER, SELFPAY | PROVIDERS: Emergency Provider Emergency Medicine; PCP Internal Medicine Endocrinology, Diabetes & Metabolism; Visit Provider Radiology Diagnostic Radiology | DX: J18.9 Pneumonia, unspecified organism (principal); J90 Pleural effusion, not elsewhere classified; M41.23 Other idiopathic scoliosis, cervicothoracic region | CPT/HCPCS: 71275 ==

== ENCOUNTER 2024-11-15 17:32 | Outpatient (BNV) | payer OTHER, SELFPAY | END 2024-11-18 10:00 | PROVIDERS: Admitting Provider Internal Medicine; Emergency Provider Emergency Medicine; PCP Internal Medicine Endocrinology, Diabetes & Metabolism; Visit Provider Radiology Diagnostic Radiology | DX: J18.9 Pneumonia, unspecified organism (principal) | CPT/HCPCS: 71045 ==

== ENCOUNTER → 2024-11-15 17:32 | Outpatient (BNV) | payer OTHER, SELFPAY | PROVIDERS: Admitting Provider Internal Medicine; Emergency Provider Emergency Medicine; PCP Internal Medicine Endocrinology, Diabetes & Metabolism; Visit Provider Internal Medicine | DX: J18.9 Pneumonia, unspecified organism (principal); J96.20 Acute and chronic respiratory failure, unspecified whether with hypoxia or hypercapnia; J44.1 Chronic obstructive pulmonary disease with (acute) exacerbation | CPT/HCPCS: 99222; 99232 ==

== ENCOUNTER → 2024-11-15 17:32 | Outpatient (BNV) | payer OTHER, SELFPAY | PROVIDERS: Admitting Provider Internal Medicine; Emergency Provider Emergency Medicine; PCP Internal Medicine Endocrinology, Diabetes & Metabolism; Visit Provider Internal Medicine | DX: J18.9 Pneumonia, unspecified organism (principal); J20.9 Acute bronchitis, unspecified | CPT/HCPCS: 99222 ==